=== PATIENT | male | born 1955 | race Caucasian/White ===

== ENCOUNTER → 2018-12-15 12:40 | Outpatient (CLI) | payer MEDICARE, MEDICAID, SELFPAY ==
--- NOTE | 2018-12-15 | DI.RAD.S_ITS ---
PROCEDURE: XR PELVIS 1-2V INDICATIONS: Malignant neoplasm of BRONCHUS OR LUNG/ BACK PAIN TECHNIQUE: 1 view(s) of the pelvis acquired. COMPARISON: [facility], , PELVIS WITH BILATERAL HIPS, 03/17/2010, 13:12. FINDINGS: Bones: No fractures or dislocations. No suspicious bony lesions. Mild degenerative narrowing of the hip joints bilaterally with small periarticular osteophytes. Soft tissues: Visualized bowel gas pattern is normal. No suspicious soft tissue calcifications. IMPRESSION: Early degenerative arthritic change within the hips bilaterally. No definitive metastatic lesions. If clinical concern persists, bone scan is recommended. Dictated by: My Wright M.D. on 12/15/2018 at 15:04 Approved by: My Wright M.D. on 12/15/2018 at 15:05
--- NOTE | 2018-12-15 | DI.RAD.S_ITS ---
PROCEDURE: XR LUMBAR SPINE 2-3V INDICATIONS: BACK PAIN TECHNIQUE: 3 views of the lumbar spine were acquired. COMPARISON: [facility], , -SPINE 2-3 VIEWS, 03/17/2010, 13:16. FINDINGS: Bones: 5 [id number] vertebrae are present. There is trace retrolisthesis of L1 on L2, L2 on L3, L4-L5 and L5 on S1. No acute vertebral body compression fractures. Severe disc and foraminal narrowing is noted at L5-S1, moderate at L4-5, progressed compared to prior exam. Anterior osteophytes most notable at L5-S1. The L5 vertebral body demonstrates mild increase sclerosis. However, this was present on prior exam in 1999 and appears mildly progressed. There is a new focus of sclerosis along the superior endplate of L4. Soft tissues: Overlying bowel gas pattern is normal. No suspicious soft tissue calcifications. IMPRESSION: 1. Significant degenerative changes most prominent at L5-S1 as above. No visualized metastatic disease. 2. Focus of sclerosis at L4, new compared to prior exam. While this could be degenerative change, if clinical concern is present for metastatic disease, bone scan is recommended. Additionally, there is progressive sclerosis at L5. However, it is noted that this was present in 2009 and suspected to be degenerative. Dictated by: My Wright M.D. on 12/15/2018 at 15:05 Approved by: My Wright M.D. on 12/15/2018 at 15:08
--- NOTE | 2018-12-15 | DI.MRI.S_ITS ---
PROCEDURE: MR HEAD/BRAIN WO/W CON INDICATIONS: Metastatic disease TECHNIQUE: Noncontrast axial T1 spin echo, axial T2 fast spin echo, sagittal and axial FLAIR, coronal T2 fast spin echo, axial gradient echo, axial diffusion and ADC through the brain. After the administration of contrast, axial and coronal T1 spin echo with fat saturation through the brain. COMPARISON: [facility], MR, MR BRAIN WITHOUT CONTRAST, 10/21/2018, 12:12. FINDINGS: Image quality: Excellent. CSF spaces: Basal cisterns are patent. No extra-axial fluid collections. Ventricles are normal in size and shape. Brain: There is cerebral volume loss for age. There is periventricular white matter chronic small vessel ischemic change. The brainstem appears normal. Diffusion-weighted images demonstrate no acute ischemic insults. No chronic ischemic insults. Normal intravascular flow voids are present. In the vertex of the right frontal lobe, there is a 14 mm AP by 14 mm transverse T2 hyperintense focus with mild surrounding hyperintense T2/FLAIR signal intensity. It does demonstrate small peripheral areas of enhancement. This area has markedly decreased in size compared to 24 mm AP by 28 mm transverse. In addition, the hyperintense flair signal representing vasogenic edema has also decreased. Calvarial changes are present suggestive of prior resection. Skull and face: Calvarial marrow is normal in signal. Orbits appear normal. Sinuses: Sinuses demonstrate minimal pansinus mucosal thickening. Moderate fluid is present within the mastoid air cells bilaterally, new compared to prior exam. IMPRESSION: 1. Presumed resection cavity in the superior right frontal lobe as above. This corresponds to area of identified mass lesion on prior exam. There's been significant interval decrease in appearance of vasogenic edema. There are small areas of peripheral enhancement. While this could be postsurgical change, recurrent/residual disease cannot be excluded and short interval imaging followup is recommended. 2. No new areas of metastatic disease are identified. 3. Prominent fluid within the mastoid air cells bilaterally. Recommend correlation potential mastoiditis. Dictated by: My Wright M.D. on 12/15/2018 at 14:32 Approved by: My Wright M.D. on 12/15/2018 at 14:59
== END ==
PROVIDERS: Family Provider Family Medicine; PCP Family Medicine; Visit Provider Family Medicine
DX: C34.90 Malignant neoplasm of unspecified part of unspecified bronchus or lung (principal); C79.31 Secondary malignant neoplasm of brain; M16.0 Bilateral primary osteoarthritis of hip; G93.9 Disorder of brain, unspecified; M54.9 Dorsalgia, unspecified; M25.559 Pain in unspecified hip
CPT/HCPCS: 70553; 72100; 72170

== ENCOUNTER → 2018-12-28 14:14 | Outpatient (CLI) | payer MEDICARE, MEDICAID, SELFPAY ==
[2018-12-28 15:33] LABS: Add Manual Diff / Slide Review NO; Basophils Absolute Auto 100 /uL (0-100); Basophils Percent Auto 0.8 % (0-2); Eosinophils Absolute Auto 200 /uL (0-450); Eosinophils Percent Auto 2.3 % (2-4); Hematocrit 37.5 % (41-53); Hemoglobin 12.4 g/dL (13.5-17.5); Lymphocytes Absolute Auto 900 /uL (1100-4500); Lymphocytes Percent Auto 10.2 % (25-40); Mean Corpuscular Hemoglobin 30.9 PG (26-34); Mean Corpuscular Volume 93.8 fL (80-100); Monocytes Absolute Auto 1000 /uL (0-900); Monocytes Percent Auto 10.6 % (3-14); Neutrophils Absolute Auto 6900 /uL (1500-7000); Neutrophils Percent Auto 76.1 % (50-75); Platelet Count 231 X10^3/uL (150-400); Red Cell Distribution Width 15.5 % (11.6-14.8); White Blood Cell Count 9.1 X10^3/uL (4.5-11.0)
[2018-12-28 16:08] LABS: Alanine Aminotransferase 72 IU/L (21-72); Albumin 3.8 g/dL (3.5-5.0); Albumin Globulin Ratio 1.4 (1.0-2.8); Alkaline Phosphatase 391 U/L (38-126); Aspartate Aminotransferase 47 IU/L (17-59); BUN Creatinine Ratio 4.7 (6-22); Bilirubin Total 0.4 mg/dL (0.2-1.3); Blood Urea Nitrogen 20 mg/dL (9-20); Calcium 8.5 mg/dL (8.4-10.2); Carbon Dioxide 31 mmol/L (22-32); Chloride 92 mmol/L (98-107); Estimated Glomerular Filt Rate 13.9 mL/min (>60); Globulin 2.7 g/dL (1.7-4.1); Glucose 152 mg/dL (80-110); HEMOLYSIS < 15 (0-50); Potassium 3.8 mmol/L (3.4-5.1); Sodium 137 mmol/L (137-145); Total Protein 6.5 g/dL (6.3-8.2)
[2018-12-28 16:16] LABS: Free T4, Direct Thyroxine 1.58 ng/dL (0.78-2.19)
[2018-12-28 16:30] LABS: Thyroid Stimulating Hormone 2.76 uIU/mL (0.47-4.68)
== END ==
PROVIDERS: Family Provider Family Medicine; PCP Family Medicine; Visit Provider Family Medicine
DX: E03.9 Hypothyroidism, unspecified (principal); C79.31 Secondary malignant neoplasm of brain; C34.90 Malignant neoplasm of unspecified part of unspecified bronchus or lung
CPT/HCPCS: 36415; 80053; 84439; 84443; 85025

== ENCOUNTER 2019-02-22 13:51 | Day surgery (SDC) | payer MEDICARE, MEDICAID, SELFPAY ==
[2019-02-08 14:36] VITALS: BMI 29.7
[2019-02-22] VITALS (8 sets, daily range): BP systolic 111–128; BP diastolic 64–78; PULSE 66–89; RESP 10–20; TEMP 36.2–36.6; O2SAT 93–100; BMI 29.7
--- NOTE | 2019-02-22 | DI.RAD.S_ITS ---
PROCEDURE: XR CHEST 1V INDICATIONS: port placement TECHNIQUE: One view of the chest was acquired. COMPARISON: [facility], , CHEST 2 VIEW, 10/24/2012, 10:31. FINDINGS: Surgical changes and devices: Right chest port with the tip projecting in the lower SVC. Cervical spine fixation hardware. Lungs and pleura: Mild patchy retrocardiac opacity. Lung volumes are low and there is scattered atelectasis.. No pleural effusions or pneumothorax. Mediastinum: Mediastinal contours appear normal. Heart size is normal. Bones and chest wall: No suspicious bony lesions. Overlying soft tissues appear unremarkable. IMPRESSION: Status post placement right chest port with the tip projecting in the lower SVC. No pneumothorax. Low lung volumes with patchy atelectasis versus aspiration in the lung bases and retrocardiac region. Dictated by: Ian Mitchell M.D. on 02/22/2019 at 18:06 Approved by: Ian Mitchell M.D. on 02/22/2019 at 18:07
[2019-02-22] MEDS: LACTATED RINGERS 1,000 ML 100 ML IV (15:23)
--- NOTE | 2019-02-22 16:30 | PM.HP.1 ---
History of Present Illness Date Patient Seen: 02/22/19 Time Patient Seen: 16:30 Chief complaint: [id number] Narrative: pt seen and examened anemia since last visit Otherwise unchanged Patient History Medical History (Updated 02/17/19 @ 10:51 by Loida Bennett RN) Arthritis (Acute) Back pain (Acute) Chest pain (Acute) GERD (gastroesophageal reflux disease) (Acute) HLD (hyperlipidemia) (Acute) Bipolar 1 disorder (Acute) COPD (chronic obstructive pulmonary disease) (Acute) History of renal dialysis (Acute) Hypotension (Acute) Lung cancer (Acute) Poor balance (Acute) Weakness (Acute) Diabetes (Chronic) HTN (hypertension) (Chronic) Renal failure (Chronic) Surgical History (Updated 02/14/19 @ 10:30 by Nam Pereira MD) AV (arteriovenous fistula) (Acute) H/O umbilical hernia repair (Acute) History of cholecystectomy (Acute) Hx of brain surgery (Acute ~10/2018) Family History (Updated 02/07/19 @ 11:13 by Jeanne Meneses LPN) Father Hypertension Heart disease Diabetes mellitus Mother Cancer Social History (Updated 02/07/19 @ 11:12 by Jeanne Meneses LPN) marital status: household members: spouse and children occupational status: unemployed Smoking Status: Current every day smoker alcohol intake: never Family & Social History Family History (Updated 02/07/19 @ 11:13 by Jeanne Meneses LPN) Father Hypertension Heart disease Diabetes mellitus Mother Cancer Social History: household members spouse,children Tobacco & Substance use: Tobacco type cigarettes Smoking Status Current every day smoker alcohol intake never Substance Use Type does not use Meds Home Medications Medication Instructions Recorded Confirmed Type CALCIUM ACETATE (PHOSLO~) 667 mg PO QDAY #0 05/24/13 02/07/19 History OMEPRAZOLE 20 mg PO BID #0 05/24/13 02/22/19 History VITAMIN D (Vitamin D3) 1,000 unit PO BID #0 05/24/13 02/07/19 History [DIALYVITE] 100 mg PO QDAY #0 05/24/13 02/22/19 History [LEVOTHYROXINE] 225 mcg PO QDAY #0 05/24/13 02/07/19 History aspirin 325 mg PO QDAY #0 05/24/13 02/22/19 History olanzapine [Zyprexa] 5 mg PO QDAY #0 05/24/13 02/22/19 History paroxetine HCl [Paxil] 20 mg PO QDAY #0 05/24/13 02/22/19 History sevelamer carbonate [Renvela] 1,600 mg PO #0 05/24/13 02/07/19 History simvastatin [Zocor] #0 05/24/13 02/07/19 History albuterol sulfate [ProAir HFA] 2 puff INHALATION Q4-6H 12/20/18 02/22/19 History fluticasone furoate-vilanterol 1 inh INHALATION DAILY 12/20/18 02/22/19 History [Breo Ellipta] gabapentin 200 mg PO BID 12/20/18 02/22/19 History hydrocodone-acetaminophen 1 tab PO Q4-6H PRN 12/20/18 02/22/19 History ketoconazole 1 applic TOPICAL BID 12/20/18 02/07/19 History loratadine 10 mg PO DAILY 12/20/18 02/22/19 History ondansetron 4 mg PO Q6-8H PRN 12/20/18 02/07/19 History umeclidinium [Incruse Ellipta] 1 inh INHALATION DAILY 12/20/18 02/22/19 History Allergies Allergy/AdvReac Type Severity Reaction Status Date / Time Penicillins Allergy Severe passed out Verified 02/22/19 15:06 codeine Allergy Intermediate hurt worse Verified 02/22/19 15:06 Exam Vital Signs (past 8 hours): - 02/22/19 15:14 Temperature 97.6 F Pulse Rate 89 Respiratory Rate 18 Blood Pressure 114/77 Pulse Oximetry 99 Oxygen Delivery Method Room Air
[2019-02-22] MEDS: CEFAZOLIN 2 GM/100 ML FROZ.PIGGY IV (16:50)
--- NOTE | 2019-02-22 17:13 | SUR.OPER ---
Supine on padded OR bed, head on pillow, right arm padded and tucked at side, legs uncrossed, safety belt at thigh, tape over blanket over lower legs .
[2019-02-22] MEDS: BUPIVACAINE 0.25% W/ EPI (PF) 10 ML VIAL INJ (17:22)
[2019-02-22] MEDS: HEPARIN 5,000 UNIT, SODIUM CHLORIDE 0.9% 50 ML IV (17:24)
--- NOTE | 2019-02-22 18:00 | P.OP_ITS ---
Operative Date/Time/Diagnoses Date of procedure: 02/22/19 Time of procedure: 17:51 Pre-op diagnosis: metastatic lung cancer Post-op diagnosis: same Procedure & Clinicians Procedure: Totally implantable venous access catheter -right internal jugular vein Same procedure as scheduled: Yes Indications: 63-year-old man with metastatic cancer of the lung getting implanted port for palliative chemotherapy Surgeon: Sheng Enriquez Click Yes if Unassisted: Yes Anesthesia Type: General Operative Notes Findings: Needle into the right IJ by ultrasound guidance on stick PACU x-ray demonstrates tip of catheter adjacent to caval atrial junction - no kinks flushes and withdraws easily Closure Type: primary Specimen(s): none sent Prosthetic devices, grafts, tissues, transplants, or devices: joann cath Applied: catheter Estimated Blood Loss (mL): 10 Blood products transfused: none Procedure in detail: The patient was brought to the operating room and LMA was placed without incident is prepped and draped in usual sterile fashion and time- out was completed. The neck was visualized utilizing a linear probe ultrasound. The right internal jugular vein was readily identified easily compressible medial to the carotid. The patient was placed in Trendelenburg position. Under ultrasound guidance needle was advanced directly into the jugular vein with flash of blood. There is no pulsatile flow through the needle a wire was threaded using Seldinger technique without difficulty. Pocket was then created 1/2 fingerbreadths below the clavicle at the midclavicular line on the right chest. This was enlarged with a finger to accommodate the port with approximately a 1 cm soft tissue overlying. A dilator and sheath was then placed over the wire into the right internal jugular vein. The location of the wire and the sheath was checked fluoroscopically and found to be well positioned down into the superior vena cava. Wire was removed and the catheter was placed through the sheath using fluoroscopic guidance with the tip within the atrium. The sheath was then split and removed holding the catheter in place. The tip was backed out the caval atrial junction under fluo ro, using a tunneler the external tip of the catheter was then brought through the subcutaneous tissue over the clavicle and into the pocket. It was withdrawn until the loop at the neck stab incision was reduced. The tip was read checked with fluoro and was in good position. The catheter was cut to an appropriate length and secured to the reservoir. The reservoir was placed within the subcutaneous pocket and sutured in place using 2 0 Prolene sutures x2. A Chen needle was placed into the reservoir injuring that the catheter aspirated with ease and flushed with out difficulty. At the end of the procedure a total of 4 mL of heparinized solution 100units/ml was flushed through the catheter. Skin was then closed using deep dermal to 2-0 Vicryl layer, and running monofilament suture in a subcuticular fashion. Skin glue was applied the patient was brought to PACU without incident. PACU x-ray demonstrates tip adjacent to atrial caval junction, no kinks Complications: none Condition: stable Disposition: PACU Plan for aftercare:
== END 2019-02-22 18:45 ==
LOC: OR 13:53
PROVIDERS: Family Provider Family Medicine; PCP Family Medicine; Visit Provider Surgery
PROC: (CPT 36561; principal; 2019-02-22 15:00)
DX: C34.90 Malignant neoplasm of unspecified part of unspecified bronchus or lung (principal); D64.9 Anemia, unspecified; J44.9 Chronic obstructive pulmonary disease, unspecified; I10 Essential (primary) hypertension; E11.9 Type 2 diabetes mellitus without complications; N19 Unspecified kidney failure; F17.210 Nicotine dependence, cigarettes, uncomplicated
CPT/HCPCS: 36561; 71045; 76000; C1788; J0690; J1644; J2704; J3010

== ENCOUNTER → 2019-03-28 10:38 | Outpatient (CLI) | payer MEDICARE, MEDICAID, SELFPAY ==
--- NOTE | 2019-03-28 10:41 | DI.CT.S_ITS ---
PROCEDURE: CT CHEST ABD PEL W CON INDICATIONS: f/u lung cancer TECHNIQUE: After the administration of oral and intravenous contrast, 5 mm thick sections acquired from the lung apices to the symphysis. 5 mm coronal and sagittal reformats were performed, with additional 7 mm coronal MIP reformats through the lungs. For radiation dose reduction, the following was used: automated exposure control, adjustment of mA and/or kV according to patient size. COMPARISON: [facility] chest abdomen pelvis CT 10/21/18. FINDINGS: Image quality: Excellent. CHEST: Lungs and pleura: Within the right upper lobe posterolaterally, there is an irregular nodule seen that measures 2.7 x 2.4 cm. This is clearly decreased in size compared to the prior examination. Superior to this primary lesion, there is a focus of poorly defined opacity, as on series 7 image 12 that measures 1.5 x 1.2 cm, which is slightly smaller than on the prior examination, when measured in a similar fashion. Within the right perihilar region, there is irregular nodule that measures 17 x 14 mm. This is not significantly changed compared to the prior CT. There is a stable ovoid nodule within the right middle lobe that measures 8 x 4 mm. Mild emphysematous changes are seen. No pleural effusions or pneumothorax. Central and peripheral airways appear patent and normal in caliber. Mediastinum: Heart size is normal. Coronary artery calcifications are seen. No pericardial effusion. No mediastinal or hilar adenopathy by size criteria. Thoracic aorta and central pulmonary arteries are normal in size. Esophagus is normal in caliber. There is a small hiatal hernia. Chest wall: No axillary or supraclavicular adenopathy by size criteria. Thyroid gland demonstrates no significant CT abnormality. There is a right-sided chest port. ABDOMEN: Solid organs: Liver is normal in size and enhancement. Gallbladder has been removed. Biliary system is non dilated. Pancreas enhances normally. Spleen is normal in size and enhancement. No adrenal nodules. The kidneys are atrophic. Bilateral nonenhancing renal cysts are seen. No hydronephrosis is seen. Vascular calcification can be seen of the kidneys. Peritoneum and bowel: Bowel loops demonstrate normal wall thickness and caliber. No free fluid or air. Incidental note is made of a normal-appearing appendix. Nodes and vessels: No retroperitoneal or mesenteric adenopathy by size criteria. Aorta and inferior vena cava are normal in size. Atherosclerotic calcification is noted. Miscellaneous: No ventral hernias. PELVIS: Genitourinary: The urinary bladder is collapsed at the time of this study. Miscellaneous: No enlarged inguinal lymph nodes are seen. Bilateral fat containing inguinal hernias are seen, left larger than right. Bones: No suspicious bony lesions. No vertebral body compression fractures. Degenerative changes are seen throughout, which are most prominent at the L4-L5 and L5-S1 levels. IMPRESSION: The patient's primary mass within the right upper lobe has decreased in size compared to the prior examination. An additional right upper lobe nodule has also decreased in size compared to the prior. The right perihilar pulmonary focus in the right middle lobe nodule has not significantly changed in size compared to the prior examination. Mild emphysematous changes are seen. Incidental note is made of: Small hiatal hernia Cholecystectomy Atrophic kidneys Renal cysts Bilateral fat containing inguinal hernias Prostatic calcification, including coronary artery calcification. Dictated by: Yonathan Pandey M.D. on 03/28/2019 at 12:32 Approved by: Yonathan Pandey M.D. on 03/28/2019 at 12:43
--- NOTE | 2019-03-28 10:41 | DI.MRI.S_ITS ---
PROCEDURE: MR BRAIN (IAC) WWO CON INDICATIONS: f/u lung cancer TECHNIQUE: Noncontrast sagittal T1 spin echo, axial FLAIR, axial gradient echo, axial diffusion and ADC through the brain. Axial thin-slice 3D CISS, coronal TruFISP, axial T1 spin echo with fat saturation through the internal auditory canals. After the administration of contrast, thin slice axial and coronal T1 spin echo with fat saturation through the internal auditory canals, and axial T1 spin echo with fat saturation through the brain. COMPARISON: [facility], MR, MR BRAIN WITH/WITHOUT CONTRAST, 01/10/2019, 19:07. [facility], MR, MR BRAIN WITHOUT CONTRAST, 01/06/2019, 17:15. [facility], MR, MR HEAD/BRAIN WO/W CON, 12/15/2018, 12:55. [facility], MR, MR BRAIN WITH/WITHOUT CONTRAST, 10/25/2018, 23:18. FINDINGS: Image quality: Excellent. Cerebellopontine angles: No cerebellopontine angle masses. Inner ear structures appear normally formed. No suspicious enhancement in the internal auditory canal or along the course of the 7th cranial nerve. CSF spaces: Ventricles are normal in size and shape. No extra-axial fluid collections. Basal cisterns are patent. Brain: Grossly unchanged appearance of postoperative sequela from right frontal lobe resection. An area of the operative bed where there was previously discussed mildly prominent enhancement seen at the superior margin, this appears less conspicuous on the current examination. No new suspicious area of enhancement is identified. There are nearby chronic blood products as before.Chairez-white matter interface is intact. No abnormal intracranial enhancement. Diffusion weighted images demonstrate no acute ischemic insults. Brainstem appears normal. Normal intravascular flow voids are present. Skull and face: Postsurgical changes related to right frontal craniotomy Orbits appear normal. Sinuses: Minimal left frontal sinus disease is unchanged IMPRESSION: Interval decrease in the previously described foci of enhancement at the right frontal operative bed margin. No new suspicious focal enhancement or mass identified. Unremarkable appearance of the cerebellopontine angle and internal auditory canals bilaterally. Dictated by: Ian Mitchell M.D. on 03/28/2019 at 13:58 Approved by: Ian Mitchell M.D. on 03/28/2019 at 14:11
[2019-03-28 11:36] LABS: Add Manual Diff / Slide Review NO; Basophils Absolute Auto 100 /uL (0-100); Basophils Percent Auto 1.6 % (0-2); Eosinophils Absolute Auto 200 /uL (0-450); Eosinophils Percent Auto 3.6 % (2-4); Hemoglobin 9.8 g/dL (13.5-17.5); Lymphocytes Absolute Auto 900 /uL (1100-4500); Lymphocytes Percent Auto 16.9 % (25-40); Mean Corpuscular HGB Conc 32.8 % (30-36); Mean Corpuscular Hemoglobin 30.4 PG (26-34); Mean Corpuscular Volume 92.8 fL (80-100); Monocytes Absolute Auto 500 /uL (0-900); Monocytes Percent Auto 9.7 % (3-14); Neutrophils Absolute Auto 3600 /uL (1500-7000); Neutrophils Percent Auto 68.2 % (50-75); Platelet Count 133 X10^3/uL (150-400); Red Blood Cell Count 3.23 X10^6/uL (4.5-5.9); Red Cell Distribution Width 17.6 % (11.6-14.8); White Blood Cell Count 5.3 X10^3/uL (4.5-11.0)
[2019-03-28 11:58] LABS: Albumin Globulin Ratio 1.5 (1.0-2.8); Alkaline Phosphatase 118 U/L (38-126); Aspartate Aminotransferase 14 IU/L (17-59); BUN Creatinine Ratio 5.7 (6-22); Bilirubin Total 0.5 mg/dL (0.2-1.3); Blood Urea Nitrogen 39 mg/dL (9-20); Calcium 9.5 mg/dL (8.4-10.2); Carbon Dioxide 31 mmol/L (22-32); Chloride 95 mmol/L (98-107); Estimated Glomerular Filt Rate 8.1 mL/min (>60); Globulin 2.7 g/dL (1.7-4.1); Glucose 222 mg/dL (80-110); HEMOLYSIS < 15 (0-50); Potassium 3.9 mmol/L (3.4-5.1); Sodium 139 mmol/L (137-145); Total Protein 6.7 g/dL (6.3-8.2)
[2019-03-28 12:13] LABS: Alanine Aminotransferase 6 IU/L (21-72)
[2019-03-28 12:28] LABS: Hemoglobin A1C% w Est Avg Glu 9.3 % (4.0-6.0)
[2019-03-28 12:36] LABS: Free T4, Direct Thyroxine 1.69 ng/dL (0.78-2.19)
[2019-03-28 12:51] LABS: Thyroid Stimulating Hormone 3.42 uIU/mL (0.47-4.68)
== END ==
PROVIDERS: Family Provider Family Medicine; PCP Family Medicine
DX: C34.90 Malignant neoplasm of unspecified part of unspecified bronchus or lung (principal); C79.31 Secondary malignant neoplasm of brain; E11.9 Type 2 diabetes mellitus without complications
CPT/HCPCS: 36415; 70553; 71260; 74177; 80053; 83036; 84439; 84443; 85025; Q9967

== ENCOUNTER → 2019-06-22 12:00 | Outpatient (CLI) | payer MEDICARE, OTHER, MEDICAID, SELFPAY ==
--- NOTE | 2019-06-22 12:04 | DI.MRI.S_ITS ---
PROCEDURE: MR HEAD/BRAIN WO CON INDICATIONS: f/u brain mets, lung cancer TECHNIQUE: Non-contrast axial T1 spin echo, axial T2 fast spin echo, sagittal and axial FLAIR, coronal T2 fast spin echo, axial gradient echo, axial diffusion and ADC through the brain. COMPARISON: [facility], MR, MR HEAD/BRAIN WO/W CON, 12/15/2018, 12:55. [facility], MR, MR BRAIN (IAC) WWO CON, 03/28/2019, 12:40. FINDINGS: Image quality: Limited by lack of IV contrast. No IV contrast was given, secondary to patient being on dialysis. CSF spaces: Ventricles appear symmetric in size and shape. Basal cisterns are patent. No extra-axial fluid collections. Brain: There is a resection cavity seen involving the superior aspect of the right frontal lobe, with volume loss and surrounding encephalomalacia. Mild hemosiderin deposition can be seen along the margins of the resection cavity. No intracranial mass effects. There is cerebral volume loss for age. There are periventricular and deep white matter chronic small vessel ischemic changes. Brainstem appears normal. Diffusion-weighted images show no acute ischemic insults. No chronic ischemic insults. Normal intravascular flow voids are present. Skull and face: Craniotomy changes are seen superiorly and on the right. Calvarial bone marrow is normal in signal. Orbits are normal. Sinuses: Sinuses and mastoids are clear. IMPRESSION: There is a resection cavity seen along the superior aspect of the right frontal lobe, which is stable compared to prior examinations. To the limits of this study that is performed without IV contrast, no recurrent masses are seen. Note is made of age-appropriate brain parenchymal volume loss and chronic small vessel ischemic changes. No findings of acute or subacute infarction can be seen. Dictated by: Yonathan Pandey M.D. on 06/22/2019 at 12:28 Approved by: Yonathan Pandey M.D. on 06/22/2019 at 12:33
--- NOTE | 2019-06-22 12:22 | DI.CT.S_ITS ---
PROCEDURE: CT CHEST WO CON INDICATIONS: lung cancer surveillance TECHNIQUE: Noncontrast 5 mm thick sections acquired from the pulmonary apices to the posterior costophrenic angles. 1 mm lung window, 5 mm thick coronal and sagittal and 7 mm axial MIP reformats were then acquired. For radiation dose reduction, the following was used: automated exposure control, adjustment of mA and/or kV according to patient size. COMPARISON: [facility], [place], [place] CT FUSION SKULL 2 THIGH, 12/28/2018, 16:43. [facility], CT, CT CHEST ABDOMEN PELVIS WITH CONTRAST, 10/21/2018, 10:20. [facility], CT, CT CHEST ABD PEL W CON, 03/28/2019, 12:27. FINDINGS: Image quality: Excellent. Lungs and pleura: As previously identified, there are multiple areas of nodular, masslike in ground glass opacities identified within the lungs bilaterally. The site of patient's primary neoplasm in the posterior lateral right upper lobe has mildly decreased in size measuring 20 mm AP by 20 mm transverse compared to 27 mm x 24 mm. The right apical partially ground glass nodular density has mildly decreased in size measuring 9 mm AP by 9 mm transverse compared to 15 mm x 12 mm. The mass along the medial aspect of the right middle lobe along the right major fissure is minimally more prominent measuring approximately 17 mm AP by 16 mm transverse compared to 15 mm AP by 13 mm transverse. There is also appearance of a new groundglass nodular opacity in the left lower lobe on series 3 image 199 measuring 5 mm. Remaining areas of nodularity within the lungs are stable. There are no effusions or consolidations. No pneumothorax. Emphysematous changes are present. Mediastinum: Heart size is normal. Trace, unchanged pericardial effusion. No mediastinal adenopathy by size criteria. Thoracic aorta and central pulmonary arteries are normal in size. Esophagus is normal in caliber. Mild hiatal hernia. Right Port-A-Cath is present. Bones and chest wall: No suspicious bony lesions. No vertebral body compression fractures. No axillary or supraclavicular adenopathy by size criteria. Thyroid gland is unremarkable Abdomen: Visualized upper abdominal solid organs and bowel loops appear normal in the absence of contrast. IMPRESSION: 1. Multiple bilateral pulmonary nodules and groundglass opacities as above. Several have demonstrated interval decrease in size, a right middle lobe mass has mildly increased in size, as well as interval appearance of a new left lower lobe nodule. Overall appearance is consistent with a mixed response. However, appearance of new nodule is concerning for disease progression. Dictated by: My Wright M.D. on 06/22/2019 at 14:54 Approved by: My Wright M.D. on 06/22/2019 at 15:06
== END ==
PROVIDERS: Family Provider Family Medicine; PCP Family Medicine
DX: C34.90 Malignant neoplasm of unspecified part of unspecified bronchus or lung (principal); C79.31 Secondary malignant neoplasm of brain
CPT/HCPCS: 70551; 71250

== ENCOUNTER 2019-08-21 13:04 | Emergency (ER) | payer MEDICARE, OTHER, MEDICAID, SELFPAY ==
[2019-08-21 13:10] VITALS: BP 130/82; PULSE 90; RESP 14; TEMP 36.6; O2SAT 98
--- NOTE | 2019-08-21 17:46 | ED_ITS ---
HPI - SOB/Dyspnea <Iqra YaSILKE - Last Filed: 08/21/19 21:18> General Chief Complaint: Shortness of Breath/Dyspnea Stated Complaint: breathing trouble/cancer Time Seen by Provider: 08/21/19 17:26 Source: patient and family Mode of arrival: Wheelchair History of Present Illness HPI Narrative: 64-year-old male with a history of stage IV lung cancer being treated with Keytruda, COPD, current smoker, presents emergency department today complaining of episodes of shortness of breath since Wednesday. He states these episodes occur mostly at night and last about 4-10minutes. He states it feels like he has to take a deep breath and push it out when this happens, use inhaler but does not feel like this has helped. Family reports he has had a cold over the past 2 weeks and feels like this may have contributed. Patient states he has used his albuterol inhaler but does not feel like it is helping. He denies fevers, cough, nausea, vomiting, diarrhea, dizziness, chest pain, or other concerns. He reports he still smokes 6 cigarettes a day. Related Data Home Medications Medication Instructions Recorded Confirmed CALCIUM ACETATE (PHOSLO~) 667 mg PO QDAY #0 05/24/13 08/15/19 OMEPRAZOLE 20 mg PO BID #0 05/24/13 08/15/19 VITAMIN D (Vitamin D3) 3,000 unit PO DAILY #0 05/24/13 08/15/19 [DIALYVITE] 100 mg PO QDAY #0 05/24/13 08/15/19 [LEVOTHYROXINE] 225 mcg PO QDAY #0 05/24/13 08/15/19 aspirin 325 mg PO QDAY #0 05/24/13 08/15/19 olanzapine [Zyprexa] 5 mg PO QDAY #0 05/24/13 08/15/19 paroxetine HCl [Paxil] 20 mg PO QDAY #0 05/24/13 08/15/19 sevelamer carbonate [Renvela] 1,600 mg PO DAILY #0 05/24/13 08/15/19 simvastatin [Zocor] 20 mg DAILY #0 05/24/13 08/15/19 Breo Ellipta 1 inh INHALATION DAILY 12/20/18 08/15/19 Incruse Ellipta 1 inh INHALATION DAILY 12/20/18 08/15/19 albuterol sulfate [ProAir HFA] 2 puff INHALATION Q4-6H 12/20/18 08/15/19 hydrocodone-acetaminophen 1 tab PO Q4-6H PRN 12/20/18 08/15/19 ketoconazole 1 applic TOPICAL BID 12/20/18 08/15/19 loratadine 10 mg PO DAILY 12/20/18 08/15/19 ondansetron 4 mg PO Q6-8H PRN 12/20/18 08/15/19 pioglitazone 45 mg PO DAILY 03/14/19 08/15/19 Previous Rx's Medication Instructions Recorded acetaminophen 500 mg PO Q4H PRN #14 cap 02/22/19 albuterol sulfate 1.25 mg INHALATION Q4-6H PRN #75 ml 08/21/19 doxycycline hyclate 100 mg PO BID 7 Days #14 cap 08/21/19 Allergies Allergy/AdvReac Type Severity Reaction Status Date / Time Penicillins Allergy Severe passed out Verified 02/22/19 15:06 codeine Allergy Intermediate hurt worse Verified 02/22/19 15:06 Review of Systems <SILKE Payne - Last Filed: 08/21/19 21:18> Review of Systems Narrative: REVIEW OF SYSTEMS: GENERAL: Denies fevers. HENT: No head trauma or hearing loss. EYES: No loss of vision, double vision, eye pain, irritation or discharge. CARDIOVASCULAR: No chest pain or syncope. RESPIRATORY: Complains of SOB episodes, see HPI. GASTROINTESTINAL: No nausea, vomiting, diarrhea, or constipation. MUSCULOSKELETAL: No weakness or injury. INTEGUMENTARY: No rash, lesions, or pruritus. NEURO: No memory loss, or confusion. Patient History <SILKE Payne - Last Filed: 08/21/19 21:18> Medical History Arthritis (Acute) Back pain (Acute) Bipolar 1 disorder (Acute) Chest pain (Acute) COPD (chronic obstructive pulmonary disease) (Acute) Diabetes (Chronic) GERD (gastroesophageal reflux disease) (Acute) History of renal dialysis (Acute) HLD (hyperlipidemia) (Acute) HTN (hypertension) (Chronic) Hypotension (Acute) Lung cancer (Acute) Poor balance (Acute) Renal failure (Chronic) Weakness (Acute) Surgical History AV (arteriovenous fistula) (Acute) H/O umbilical hernia repair (Acute) History of cholecystectomy (Acute) Hx of brain surgery (Acute ~10/2018) Family History Father Hypertension Heart disease Diabetes mellitus Mother Cancer Social History marital status: household members: spouse and children occupational status: unemployed Smoking Status: Current every day smoker alcohol intake: never Substance Use Type: does not use Exam <SILKE Payne - Last Filed: 08/21/19 21:18> Narrative Exam Narrative: PHYSICAL EXAMINATION: GENERAL: Well groomed, alert, and cooperative. Answers questions promptly and appropriately. Vital signs noted. HENT: Normocephalic, atraumatic. Ear canals patent. TMs intact without mucus or erythema. Oropharynx without erythema. Tonsils are not present. EYES: Conjunctiva pink, sclera white, no periorbital swelling. No discharge. CHEST: Normal to inspection and without deformities. CARDIOVASCULAR: S1 and S2 sounds normal. Regular rate and rhythm, no murmurs, clicks, or bruits. RESPIRATORY: Normal respiratory rate, trachea midline, airway patent. No stridor, nasal flaring or accessory muscle use. Able to speak in full sentences. Lungs with decreased lung sounds in bases, diffuse scattered wheezes noted throughout upper lobes, no crackles heard at this time. MUSCULOSKELETAL: Normal gait and coordination. Equal tone and mass bilaterally. EXTREMITIES: Moves all extremities. SKIN: Warm, dry, soft, appropriate color for ethnicity. No lesions, rashes, or wounds. NEURO: Alert and Oriented X 3. Good coordination. No ataxia or cognitive issues. PSYCH: Appropriate affect and mood. Initial Vital Signs Initial Vital Signs: Vital Signs Temperature 97.8 F 08/21/19 13:10 Pulse Rate 90 08/21/19 13:10 Respiratory Rate 14 08/21/19 13:10 Blood Pressure 130/82 08/21/19 13:10 Pulse Oximetry 98 08/21/19 13:10 <Lefty Arora MD - Last Filed: 08/21/19 23:46> Initial Vital Signs Initial Vital Signs: Vital Signs Temperature 97.8 F 08/21/19 13:10 Pulse Rate 90 08/21/19 13:10 Respiratory Rate 14 08/21/19 13:10 Blood Pressure 130/82 08/21/19 13:10 Pulse Oximetry 98 08/21/19 13:10 Scores <SILKE Payne - Last Filed: 08/21/19 21:18> HEART Score Heart Score history: Slightly Suspicious Heart Score EKG: Normal Heart Score Age: > or = 65 years old Heart Score risk factors: 1-2 risk factors Heart Score troponin: < or = to normal limit Heart Score Total: 3 PERC Score Age greater than or equal to 50 years: Yes Heart rate greater than or equal to 100 bpm: No Room Air O2 Sat less than 95%: No Unilateral leg swelling: No Recent trauma or surgery: No Hemoptysis: No Prior PE or DVT: No Hormone Use: No Total PERC Score: 1 Wells' Criteria for PE Clinical signs and symptoms of DVT: No PE is #1 Dx or equally likely: No Heart rate > 100: No Immobilization at least 3 days or surg in previous 4 weeks: No History of PE or DVT: No Hemoptysis: No Malignancy w/Treatment within 6 months or palliative: Yes Wells' PE Score total: 1 Course <SILKE Payne - Last Filed: 08/21/19 21:18> Course Course Narrative: Patient was given a duoneb during his emergency department stay. Patient states he fells slightly better after DuoNeb administration here, he states he wants to go home. Orders Ordered: ED Orders 08/21/19 17:45 XR chest 2V Stat 08/21/19 19:10 EKG-12 Lead Stat 08/21/19 19:26 B Type Natriuretic Peptide Stat Complete Blood Count AUTO DIFF Stat Comprehensive Metabolic Panel Stat Troponin & CK Cardiac Panel Stat Discontinued Medications Albuterol/Ipratropium (Duoneb) 3 ml INH NOW ONE Stop: 08/21/19 17:46 Last Admin: 08/21/19 19:19 Dose: 3 ml Documented by: ELIANE Consultations Consultation #1: Patient staffed with Dr. Arora. Vital Signs Vital signs: Vital Signs - 8 hr 08/21/19 19:20 08/21/19 20:25 Pulse Rate 103 H Respiratory Rate 24 Blood Pressure 106/66 Pulse Oximetry 95 94 <Lefty Arora MD - Last Filed: 08/21/19 23:46> Orders Ordered: ED Orders 08/21/19 17:45 XR chest 2V Stat 08/21/19 19:10 EKG-12 Lead Stat 08/21/19 19:26 B Type Natriuretic Peptide Stat Complete Blood Count AUTO DIFF Stat Comprehensive Metabolic Panel Stat Troponin & CK Cardiac Panel Stat Discontinued Medications Albuterol/Ipratropium (Duoneb) 3 ml INH NOW ONE Stop: 08/21/19 17:46 Last Admin: 08/21/19 19:19 Dose: 3 ml Documented by: ELIANE Vital Signs Vital signs: Vital Signs - 8 hr 08/21/19 19:20 08/21/19 20:25 Pulse Rate 103 H Respiratory Rate 24 Blood Pressure 106/66 Pulse Oximetry 95 94 MDM - SOB/Dyspnea <SILKE Payne - Last Filed: 08/21/19 21:18> Medical Records Attestation: I reviewed the patient's medical records. Lab Data Attestation: I reviewed the patient's lab results. Result diagrams: 08/21/19 19:26 08/21/19 19:26 Labs: Lab Results 08/21/19 08/21/19 Range/Units 19:26 19:26 WBC 5.8 (4.5-11.0) X10^3/uL RBC 2.65 L (4.5-5.9) X10^6/uL Hgb 8.8 L (13.5-17.5) g/dL Hct 26.0 L (41-53) % MCV 98.3 (80-100) fL MCH 33.3 (26-34) PG MCHC 33.8 (30-36) % RDW 14.9 H (11.6-14.8) % Plt Count 158 (150-400) X10^3/uL Neut % (Auto) 73.9 (50-75) % Lymph % (Auto) 14.4 L (25-40) % Antelope % (Auto) 8.6 (3-14) % Eos % (Auto) 2.2 (2-4) % Baso % (Auto) 0.9 (0-2) % Neut # (Auto) 4300 (2875-1819) /uL Lymph # (Auto) 800 L (8098-8166) /uL Antelope # (Auto) 500 (0-900) /uL Eos # (Auto) 100 (0-450) /uL Baso # (Auto) 100 (0-100) /uL Sodium 138 (137-145) mmol/L Potassium 4.4 (3.4-5.1) mmol/L Chloride 95 L (98-107) mmol/L Carbon Dioxide 34 H (22-32) mmol/L BUN 11 (9-20) mg/dL Creatinine 3.50 H (0.66-1.25) mg/dL Estimated GFR 17.6 L (>60) mL/min BUN/Creatinine Ratio 3.1 L (6-22) Glucose 112 H (80-110) mg/dL Calcium 9.3 (8.4-10.2) mg/dL Total Bilirubin 0.3 (0.2-1.3) mg/dL AST 27 (17-59) IU/L ALT 16 (<50) IU/L Alkaline Phosphatase 141 H (38-126) U/L Total Creatine Kinase 151 (55-170) U/L CK-MB (CK-2) 1.97 (<2.37) ng/mL CK-MB (CK-2) Rel Index 1.3 L (1.5-5.0) % Troponin I 0.030 (0.01-0.034) ng/mL B-Natriuretic Peptide 408 H (<100) Total Protein 6.9 (6.3-8.2) g/dL Albumin 4.2 (3.5-5.0) g/dL Globulin 2.7 (1.7-4.1) g/dL Albumin/Globulin Ratio 1.6 (1.0-2.8) Imaging Data Chest x-ray: Radiologist's impression: [facility] [address] [place] [id number] XRay Report Signed Patient: Yonathan Reed LMR#: [id number] : 3Acct:[id number] Age/Sex: 64 / MDate of Service: 08/21/19 Loc: ED Accession Number: [id number] Procedure: XR chest 2V Ordering Provider: Iqra Ya PROCEDURE: XR CHEST 2V INDICATIONS: SOB, h/o lung CA TECHNIQUE: 2 views of the chest were acquired. COMPARISON: [facility], CR, XR CHEST 1V, 02/22/2019, 17:41. FINDINGS: Surgical changes and devices: Right IJ Mediport. Anterior cervical fusion hardware. Lungs and pleura: The central vasculature is mildly prominent irregular pulmonary opacity seen in the right axillary region, right perihilar region. Atelectatic changes present in the right infrahilar region. Small left pleural effusion. Mediastinum: Mediastinal contours are normal. Heart size is normal. Bones and chest wall: No suspicious bony abnormalities. Soft tissues appear unremarkable. IMPRESSION: 1. Slight central vascular and interstitial prominence raises the possibility of congestion/acute edema. Correlate with BNP. 2. Right upper and midlung masses consistent with history of lung cancer. Dictated by: Romy Phipps M.D. on 08/21/2019 at 18:37 Approved by: Romy Phipps M.D. on 08/21/2019 at 18:40 ECG Data Interpretation: Sinus rhythm, rate 93, WV interval 167, QTC 434, no ST depre ssion or ST elevation. RBBB noted in V1-V6. EKG was also viewed by Dr. Arora as per protocol. MDM Narrative Medical decision making narrative: This is a 64-year-old male who has a history of stage IV lung cancer and COPD. His chest x-ray shows interstitial prominence. Differential includes pneumonia versus pulmonary edema. I have a high suspicion for pneumonia due to history of lung cancer, smoking, and history of URI the past 2 weeks with increasing bronchospasms. Less likely pulmonary edema as patient does not have a history of CHF and BNP is 400s, no crackles her neuro examination. Patient was given was nebulizer treatments per request inside on doxycycline. He was encouraged to follow up with his primary care provider in the next week for re-evaluation. Patient was encouraged to follow up with his oncologist in the next week as well. Strict ED return precautions given for new or worsening symptoms. <Lefty Arora MD - Last Filed: 08/21/19 23:46> Lab Data Labs: Lab Results 08/21/19 08/21/19 Range/Units 19:26 19:26 WBC 5.8 (4.5-11.0) X10^3/uL RBC 2.65 L (4.5-5.9) X10^6/uL Hgb 8.8 L (13.5-17.5) g/dL Hct 26.0 L (41-53) % MCV 98.3 (80-100) fL MCH 33.3 (26-34) PG MCHC 33.8 (30-36) % RDW 14.9 H (11.6-14.8) % Plt Count 158 (150-400) X10^3/uL Neut % (Auto) 73.9 (50-75) % Lymph % (Auto) 14.4 L (25-40) % Antelope % (Auto) 8.6 (3-14) % Eos % (Auto) 2.2 (2-4) % Baso % (Auto) 0.9 (0-2) % Neut # (Auto) 4300 (6428-1473) /uL Lymph # (Auto) 800 L (7412-1038) /uL Antelope # (Auto) 500 (0-900) /uL Eos # (Auto) 100 (0-450) /uL Baso # (Auto) 100 (0-100) /uL Sodium 138 (137-145) mmol/L Potassium 4.4 (3.4-5.1) mmol/L Chloride 95 L (98-107) mmol/L Carbon Dioxide 34 H (22-32) mmol/L BUN 11 (9-20) mg/dL Creatinine 3.50 H (0.66-1.25) mg/dL Estimated GFR 17.6 L (>60) mL/min BUN/Creatinine Ratio 3.1 L (6-22) Glucose 112 H (80-110) mg/dL Calcium 9.3 (8.4-10.2) mg/dL Total Bilirubin 0.3 (0.2-1.3) mg/dL AST 27 (17-59) IU/L ALT 16 (<50) IU/L Alkaline Phosphatase 141 H (38-126) U/L Total Creatine Kinase 151 (55-170) U/L CK-MB (CK-2) 1.97 (<2.37) ng/mL CK-MB (CK-2) Rel Index 1.3 L (1.5-5.0) % Troponin I 0.030 (0.01-0.034) ng/mL B-Natriuretic Peptide 408 H (<100) Total Protein 6.9 (6.3-8.2) g/dL Albumin 4.2 (3.5-5.0) g/dL Globulin 2.7 (1.7-4.1) g/dL Albumin/Globulin Ratio 1.6 (1.0-2.8) Discharge Plan Departure Patient Disposition: Home Clinical Impression: Atypical pneumonia COPD (chronic obstructive pulmonary disease) Qualifiers: COPD type: unspecified COPD Qualified Code(s): J44.9 - Chronic obstructive pulmonary disease, unspecified Discharge Date/Time: 08/21/19 20:28 Instructions: Atypical Pneumonia, DI for Chronic Obstructive Pulmonary Disease Activity Restrictions/Additional Instructions: Thank you for entrusting me with your care today. As discussed, your chest x-ray shows he may have a pneumonia. I prescribed antibiotics, please take these as directed. Have also prescribed you nebulizer treatment, you may use these every 4-6 hours as needed for shortness of breath. Follow up with your primary care provider in the next few weeks for re-evaluation. Return emergency department for new or worsening symptoms such as chest pain, high fevers, uncontrollable vomiting, or etc. Prescriptions: New doxycycline hyclate 100 mg capsule 100 mg PO BID 7 Days Qty: 14 RF: 0 albuterol sulfate 1.25 mg/3 mL solution for nebulization 1.25 mg INHALATION Q4-6H PRN (Reason: bronchospasm) Qty: 75 RF: 0 No Action aspirin 325 MG tablet 325 mg PO QDAY Qty: 0 RF: 0 olanzapine [Zyprexa] 5 MG tablet 5 mg PO QDAY Qty: 0 RF: 0 paroxetine HCl [Paxil] 20 MG tablet 20 mg PO QDAY Qty: 0 RF: 0 simvastatin [Zocor] 20 MG tablet 20 mg DAILY Qty: 0 RF: 0 sevelamer carbonate [Renvela] 800 MG tablet 1,600 mg PO DAILY Qty: 0 RF: 0 CALCIUM ACETATE (PHOSLO~) 667 mg PO QDAY Qty: 0 RF: 0 OMEPRAZOLE 20 mg PO BID Qty: 0 RF: 0 VITAMIN D (Vitamin D3) 3,000 unit PO DAILY Qty: 0 RF: 0 [DIALYVITE] 100 mg PO QDAY Qty: 0 RF: 0 [LEVOTHYROXINE] 225 mcg PO QDAY Qty: 0 RF: 0 acetaminophen 500 mg capsule 500 mg PO Q4H PRN (Reason: pain) Qty: 14 RF: 0 hydrocodone-acetaminophen 5-325 mg Tablet 1 tab PO Q4-6H PRN (Reason: Pain (Scale Score 1-3)) RF: 0 ketoconazole 2 % Cream 1 applic TOPICAL BID RF: 0 Incruse Ellipta 62.5 mcg/actuation Blister With Device 1 inh INHALATION DAILY RF: 0 Breo Ellipta 200-25 mcg/dose Blister With Device 1 inh INHALATION DAILY RF: 0 albuterol sulfate [ProAir HFA] 90 mcg/actuation Hfa Aerosol Inhaler 2 puff INHALATION Q4-6H RF: 0 ondansetron 4 mg Tablet,Disintegrating 4 mg PO Q6-8H PRN (Reason: Nausea) RF: 0 loratadine 10 mg Capsule 10 mg PO DAILY RF: 0 pioglitazone 30 mg Tablet 45 mg PO DAILY RF: 0 Referrals: Nisha Young MD [Primary Care Provider] -
[2019-08-21] MEDS: ALBUTEROL/IPRATROPIUM 3 ML AMPUL INH (19:19)
[2019-08-21 19:20] VITALS: O2SAT 95
[2019-08-21 19:32] LABS: Add Manual Diff / Slide Review NO; Basophils Absolute Auto 100 /uL (0-100); Basophils Percent Auto 0.9 % (0-2); Eosinophils Absolute Auto 100 /uL (0-450); Eosinophils Percent Auto 2.2 % (2-4); Hemoglobin 8.8 g/dL (13.5-17.5); Lymphocytes Absolute Auto 800 /uL (1100-4500); Lymphocytes Percent Auto 14.4 % (25-40); Mean Corpuscular HGB Conc 33.8 % (30-36); Mean Corpuscular Hemoglobin 33.3 PG (26-34); Mean Corpuscular Volume 98.3 fL (80-100); Monocytes Absolute Auto 500 /uL (0-900); Monocytes Percent Auto 8.6 % (3-14); Neutrophils Absolute Auto 4300 /uL (1500-7000); Neutrophils Percent Auto 73.9 % (50-75); Platelet Count 158 X10^3/uL (150-400); Red Blood Cell Count 2.65 X10^6/uL (4.5-5.9); Red Cell Distribution Width 14.9 % (11.6-14.8); White Blood Cell Count 5.8 X10^3/uL (4.5-11.0)
[2019-08-21 19:47] LABS: Alanine Aminotransferase 16 IU/L (<50); Albumin 4.2 g/dL (3.5-5.0); Albumin Globulin Ratio 1.6 (1.0-2.8); Alkaline Phosphatase 141 U/L (38-126); Aspartate Aminotransferase 27 IU/L (17-59); BUN Creatinine Ratio 3.1 (6-22); Bilirubin Total 0.3 mg/dL (0.2-1.3); Blood Urea Nitrogen 11 mg/dL (9-20); Calcium 9.3 mg/dL (8.4-10.2); Carbon Dioxide 34 mmol/L (22-32); Chloride 95 mmol/L (98-107); Creatine Kinase 151 U/L (55-170); Estimated Glomerular Filt Rate 17.6 mL/min (>60); Globulin 2.7 g/dL (1.7-4.1); Glucose 112 mg/dL (80-110); HEMOLYSIS < 15 (0-50); Potassium 4.4 mmol/L (3.4-5.1); Sodium 138 mmol/L (137-145); Total Protein 6.9 g/dL (6.3-8.2)
[2019-08-21 19:57] LABS: B Type Natriuretic Peptide 408 (<100)
[2019-08-21 20:02] LABS: CKMB % Relative Index 1.3 % (1.5-5.0); Creatine Kinase MB 1.97 ng/mL (<2.37)
[2019-08-21 20:25] VITALS: BP 106/66; PULSE 103; RESP 24; O2SAT 94
== END 2019-08-21 20:28 | disposition home or self-care (01) ==
PROVIDERS: Emergency Provider Nurse Practitioner; Family Provider Family Medicine; PCP Family Medicine
DX: J18.9 Pneumonia, unspecified organism (principal); J44.9 Chronic obstructive pulmonary disease, unspecified; C34.90 Malignant neoplasm of unspecified part of unspecified bronchus or lung
CPT/HCPCS: 36415; 71046; 80053; 82550; 82553; 83880; 84484; 85025; 93005; 94640; 99282; 99285

== ENCOUNTER → 2019-09-14 09:22 | Outpatient (CLI) | payer MEDICARE, OTHER, MEDICAID, SELFPAY ==
--- NOTE | 2019-09-14 09:24 | DI.CT.S_ITS ---
PROCEDURE: CT CHEST ABD PEL W CON INDICATIONS: f/u lung cancer TECHNIQUE: After the administration of oral and intravenous contrast, 5 mm thick sections acquired from the lung apices to the symphysis. 5 mm coronal and sagittal reformats were performed, with additional 7 mm coronal MIP reformats through the lungs. For radiation dose reduction, the following was used: automated exposure control, adjustment of mA and/or kV according to patient size. COMPARISON: [facility], CT, CT CHEST WO CON, 06/22/2019, 12:06. [facility], CT, CT CHEST ABD PEL W CON, 03/28/2019, 12:27. FINDINGS: Image quality: Excellent. CHEST: Lungs and pleura: No acute airspace opacities, and a previously present nodular mass measuring up to 1.5 x 1.6 cm right middle lobe posteriorly abutting the major fissure is again noted, without significant enlargement or diminishment in size over time. There is a small focus of subsolid airspace disease right upper lobe near the apex measuring up to 1.1 cm, stable over time, and also a peripheral nodular radiodensity at the lateral right upper lobe measuring up to 2 cm in diameter, also stable over time. This abuts the pleural surface. Finally, at the lateral superior segment left lower lobe a small focus of airspace disease is little if any change from comparison. No pleural effusions or pneumothorax. Central and peripheral airways appear patent and normal in caliber. Mediastinum: Heart size is normal. No pericardial effusion. No mediastinal or hilar adenopathy by size criteria. Thoracic aorta and central pulmonary arteries are normal in size. Esophagus is normal in caliber. No hiatal hernia. Chest wall: No axillary or supraclavicular adenopathy by size criteria. Thyroid gland appears normal where well seen. ABDOMEN: Solid organs: Liver is normal in size and enhancement. Gallbladder has been previously resected. Biliary system is non dilated. Pancreas enhances normally. Spleen is normal in size and enhancement. No adrenal nodules. Kidneys demonstrate normal size and enhancement, without hydronephrosis. Peritoneum and bowel: Bowel loops demonstrate normal wall thickness and caliber. No free fluid or air. Nodes and vessels: No retroperitoneal or mesenteric adenopathy by size criteria. Aorta and inferior vena cava are normal in size. Miscellaneous: No ventral hernias. PELVIS: Genitourinary: Bladder wall thickness is normal. Miscellaneous: No inguinal hernias or adenopathy. Bones: No suspicious bony lesions. No vertebral body compression fractures. IMPRESSION: 1. Multifocal areas of airspace disease are present in this patient bilaterally, none of which appears to represent a new finding or show interval enlargement with reference to prior CT scanning when differences in scan level are taken into account 2. No active metastatic disease is found by CT appearance. 3. Prior cholecystectomy. Dictated by: Anirudh Camejo M.D. on 09/14/2019 at 15:01 Approved by: Anirudh Camejo M.D. on 09/14/2019 at 15:17
== END ==
PROVIDERS: Family Provider Family Medicine; PCP Family Medicine
DX: C34.90 Malignant neoplasm of unspecified part of unspecified bronchus or lung (principal); C79.31 Secondary malignant neoplasm of brain; Z90.49 Acquired absence of other specified parts of digestive tract
CPT/HCPCS: 71260; 74177; Q9967

== ENCOUNTER → 2019-09-21 12:47 | Outpatient (CLI) | payer MEDICARE, MEDICAID, SELFPAY ==
--- NOTE | 2019-09-21 12:49 | DI.MRI.S_ITS ---
PROCEDURE: MR HEAD/BRAIN WO CON INDICATIONS: f/u lung cancer, prior brain met TECHNIQUE: Non-contrast axial T1 spin echo, axial T2 fast spin echo, sagittal and axial FLAIR, coronal T2 fast spin echo, axial gradient echo, axial diffusion and ADC through the brain. COMPARISON: [facility], MR, MR HEAD/BRAIN WO CON, 06/22/2019, 12:19. [facility], MR, MR BRAIN (IAC) WWO CON, 03/28/2019, 12:40. [facility], MR, MR BRAIN WITH/WITHOUT CONTRAST, 01/10/2019, 19:07. [facility], MR, MR BRAIN WITHOUT CONTRAST, 01/06/2019, 17:15. FINDINGS: Image quality: Excellent. CSF spaces: Ventricles appear symmetric in size and shape. Basal cisterns are patent. No extra-axial fluid collections. Brain: A right frontal surgical resection cavity is stable compared to prior exams. Increased T2 signal surrounding the right frontal surgical resection cavity is stable in size and contour compared to prior examinations. There is new increased T2 signal involving cortical charles matter of the left frontal operculum new punctate focus of increased T2 signal in the left frontal subcortical white matter compared to 06/22/2019. No intracranial bleeds or mass effects. There is cerebral volume loss for age. There are periventricular and deep white matter chronic small vessel ischemic changes. Brainstem appears normal. Diffusion-weighted images show no acute ischemic insults. Normal intravascular flow voids are present. Skull and face: Postsurgical changes compatible prior right frontal craniotomy are stable. Calvarial bone marrow is normal in signal. Orbits are normal. Sinuses: Sinuses and mastoids are clear. IMPRESSION: 1. Right frontal surgical resection cavity is stable compared to 06/22/2019 with no evidence of local recurrence of metastatic disease. 2. New areas of increased T2 signal involving the left frontal charles matter and left frontal subcortical white matter may be related to subacute infarct versus metastatic disease. Recommend MRI of the brain with gadolinium contrast for further characterization. Dictated by: Batsheva Somers MD, PhD on 09/21/2019 at 14:50 Approved by: Batsheva Somers MD, PhD on 09/21/2019 at 15:00
== END ==
PROVIDERS: Family Provider Family Medicine; PCP Family Medicine
DX: C34.90 Malignant neoplasm of unspecified part of unspecified bronchus or lung (principal); C79.31 Secondary malignant neoplasm of brain
CPT/HCPCS: 70551

== ENCOUNTER → 2019-11-14 12:26 | Outpatient (CLI) | payer MEDICARE, MEDICAID, SELFPAY ==
--- NOTE | 2019-11-14 12:46 | DI.CT.S_ITS ---
PROCEDURE: CT CHEST WO CON INDICATIONS: LUNG CANCER TECHNIQUE: Noncontrast 5 mm thick sections acquired from the pulmonary apices to the posterior costophrenic angles. 1 mm lung window, 5 mm thick coronal and sagittal and 7 mm axial MIP reformats were then acquired. For radiation dose reduction, the following was used: automated exposure control, adjustment of mA and/or kV according to patient size. COMPARISON: [facility], CT, CT CHEST ABD PEL W CON, 03/28/2019, 12:27. [facility], MR, MR HEAD/BRAIN WO CON, 06/22/2019, 12:19. [facility], CT, CT CHEST ABD PEL W CON, 09/14/2019, 10:38. [facility], CT, CT CHEST WO CON, 06/22/2019, 12:06. FINDINGS: Image quality: Excellent. Lungs and pleura: No acute air space opacities. 3 separate areas of airspace disease within the right lung are stable over time, comprised of a 1.1 cm area of subsolid air space radiodensity right apex (series 3 image 66), more inferiorly at the right posterolateral lung abutting the pleural surface measuring up to 2.0 cm (series 3 image 103) and then within the right middle lobe lung parenchyma abutting the major fissure even more inferiorly (series 3 image 179, measuring up to 1.7 cm in diameter. No pleural effusions or pneumothorax. Central and peripheral airways are patent and normal in caliber. Mediastinum: Heart size is normal. No pericardial effusion. No mediastinal adenopathy by size criteria. Thoracic aorta and central pulmonary arteries are normal in size. Esophagus is normal in caliber. No hiatal hernia. Central line appears in normal position, from right sided approach, extending to the atrial caval junction. Bones and chest wall: No suspicious bony lesions. No vertebral body compression fractures. No axillary or supraclavicular adenopathy by size criteria. Thyroid gland is not well-seen by this noncontrast technique. Abdomen: Visualized upper abdominal solid organs and bowel loops appear normal in the absence of contrast. IMPRESSION: Stable appearance of 3 areas of right upper and mid lung radiodensities as discussed above from March of 2019 over the prior 4 CT scans, and no new evidence of lung mass or mediastinal/hilar adenopathy is found. Dictated by: Anirudh Camejo M.D. on 11/14/2019 at 14:46 Approved by: Anirudh Camejo M.D. on 11/14/2019 at 15:05
== END ==
PROVIDERS: Family Provider Family Medicine; PCP Family Medicine; Referring Provider Internal Medicine Hematology & Oncology; Visit Provider Internal Medicine Hematology & Oncology
DX: C34.90 Malignant neoplasm of unspecified part of unspecified bronchus or lung (principal); C79.31 Secondary malignant neoplasm of brain
CPT/HCPCS: 71250

== ENCOUNTER → 2019-12-12 10:49 | Outpatient (CLI) | payer MEDICARE, MEDICAID, SELFPAY ==
--- NOTE | 2019-12-12 10:55 | DI.MRI.S_ITS ---
PROCEDURE: MR HEAD/BRAIN WO/W CON INDICATIONS: metastatic lung cancer TECHNIQUE: Noncontrast axial T1 spin echo, axial T2 fast spin echo, sagittal and axial FLAIR, coronal T2 fast spin echo, axial gradient echo, axial diffusion and ADC through the brain. After the administration of contrast, axial and coronal T1 spin echo with fat saturation through the brain. COMPARISON: [facility], MR, MR HEAD/BRAIN WO CON, 09/21/2019, 13:31. [facility], MR, MR HEAD/BRAIN WO CON, 06/22/2019, 12:19. [facility], MR, MR BRAIN WITH/WITHOUT CONTRAST, 01/10/2019, 19:07. [facility], MR, MR BRAIN WITHOUT CONTRAST, 01/06/2019, 17:15. [facility], MR, MR HEAD/BRAIN WO/W CON, 12/15/2018, 12:55. FINDINGS: Image quality: Excellent. CSF spaces: Basal cisterns are patent. No extra-axial fluid collections. Ventricles are normal in size and shape. Brain: No midline shift. No intracranial bleeds or masses. No new suspicious intracranial enhancement. There is unchanged appearance of right frontal encephalomalacia and gliosis Additional T2 hyperintense subcortical white matter signal changes present within the left frontal lobe, however no definite enhancement and this could be chronic infarct or small vessel disease There is cerebral volume loss for age. There is periventricular white matter chronic small vessel ischemic change. The brainstem appears normal. Diffusion-weighted images demonstrate no acute ischemic insults. No chronic ischemic insults. Normal intravascular flow voids are present. Skull and face: Calvarial marrow is normal in signal. Orbits appear normal. Sinuses: Sinuses and mastoids appear clear. IMPRESSION: Overall, no suspicious enhancement to suggest progressive metastatic disease. Left frontal lobe signal changes demonstrate no associated enhancement and probably represent evolving encephalomalacia/gliosis although recommend continued attention to this area on subsequent surveillance studies. Dictated by: Ian Mitchell M.D. on 12/12/2019 at 12:18 Approved by: Ian Mitchell M.D. on 12/12/2019 at 12:30
== END ==
PROVIDERS: Family Provider Family Medicine; PCP Family Medicine; Referring Provider Internal Medicine Hematology & Oncology; Visit Provider Internal Medicine Hematology & Oncology
DX: C34.90 Malignant neoplasm of unspecified part of unspecified bronchus or lung (principal); C79.31 Secondary malignant neoplasm of brain; G93.89 Other specified disorders of brain
CPT/HCPCS: 70553; A9579

== ENCOUNTER → 2020-07-02 10:55 | Outpatient (CLI) | payer MEDICARE, MEDICAID, SELFPAY ==
--- NOTE | 2020-07-02 10:58 | DI.MRI.S_ITS ---
PROCEDURE: MR HEAD/BRAIN WO/W CON INDICATIONS: lung cancer TECHNIQUE: Noncontrast axial T1 spin echo, axial T2 fast spin echo, sagittal and axial FLAIR, coronal T2 fast spin echo, axial gradient echo, axial diffusion and ADC through the brain. After the administration of contrast, axial and coronal 3D VIBE or T1 spin echo with fat saturation through the brain. COMPARISON: [facility], MR, MR HEAD/BRAIN WO/W CON, 12/12/2019, 11:22. [facility], MR, MR HEAD/BRAIN WO CON, 09/21/2019, 13:31. [facility], MR, MR HEAD/BRAIN WO CON, 06/22/2019, 12:19. [facility], MR, MR BRAIN (IAC) WWO CON, 03/28/2019, 12:40. [facility], MR, MR BRAIN WITH/WITHOUT CONTRAST, 01/10/2019, 19:07. [facility], MR, MR BRAIN WITHOUT CONTRAST, 01/06/2019, 17:15. [facility], MR, MR HEAD/BRAIN WO/W CON, 12/15/2018, 12:55. [facility], MR, MR BRAIN WITH/WITHOUT CONTRAST, 10/25/2018, 23:18. FINDINGS: Image quality: Excellent. CSF Spaces: Basal cisterns are patent. No extra-axial fluid collections. Ventricles are normal in size and shape. Brain: Right frontal surgical resection cavity with surrounding gliosis stable compared to December 12, 2019. Focus of increased T2 signal in the left frontal operculum is stable compared to December 12, 2019. No midline shift. No intracranial bleeds or masses. No abnormal intracranial enhancement. The brainstem appears normal. Diffusion-weighted images demonstrate no acute ischemic insults. No chronic ischemic insults. Normal intravascular flow voids are present. Dural sinuses demonstrate normal postcontrast enhancement. Skull and face: Postsurgical changes compatible with prior frontal craniotomy are stable. Orbits appear normal. Sinuses: Sinuses and mastoids appear clear. IMPRESSION: 1. Stable examination compared to 12/12/2019, 09/21/2019 and 06/22/2019. 2. Right frontal surgical resection cavity is stable compared to prior examinations. 3. Area of increased T2 signal in the right frontal operculum stable compared to prior examinations. 4. No suspicious postcontrast enhancement. 5. No abnormal intracranial mass or mass effect. Dictated by: Batsheva Somers MD, PhD on 07/02/2020 at 12:16 Approved by: Batsheva Somers MD, PhD on 07/02/2020 at 13:08
--- NOTE | 2020-07-02 10:58 | DI.CT.S_ITS ---
PROCEDURE: CT CHEST WO CON INDICATIONS: lung cancer TECHNIQUE: Noncontrast 5 mm thick sections acquired from the pulmonary apices to the posterior costophrenic angles. 1 mm lung window, 5 mm thick coronal and sagittal and 7 mm axial MIP reformats were then acquired. For radiation dose reduction, the following was used: automated exposure control, adjustment of mA and/or kV according to patient size. COMPARISON: [facility], [place], [place] PET CT FUSION SKULL 2 THIGH, 12/28/2018, 16:43. [facility], CT, CT CHEST ABDOMEN PELVIS WITH CONTRAST, 10/21/2018, 10:20. [facility], CT, CT CHEST ABD PEL W CON, 03/28/2019, 12:27. [facility], CT, CT CHEST WO CON, 06/22/2019, 12:06. [facility], CT, CT CHEST ABD PEL W CON, 09/14/2019, 10:38. [facility], CT, CT CHEST WO CON, 11/14/2019, 12:25. FINDINGS: Image quality: Excellent. Lungs and pleura: There is an pleural-based irregular mass redemonstrated in the right upper lobe which appears progressively decreased in size compared to previous exams. This measures approximately 2.4 x 2.3 cm in transverse dimension compared to 2.7 x 2.5 cm at a comparable level on the prior study. An irregular subsolid nodule within the right upper lobe centered on series 3, image 100 demonstrates a solid component measuring approximately 1.6 x 1.2 cm in transverse dimension which appears similar to the prior studies. However, the ground-glass components demonstrate progressive slight increase in size compared to the previous studies. Within the right middle lobe, there is an irregular perihilar multilobulated nodule measuring up to 1.8 x 1.8 cm in transverse dimension an approximately 2.0 cm in craniocaudal dimension which appears similar to the prior studies. Within the left upper lobe, there is a small subpleural nodule measuring 0.4 cm on image 82 which appears similar in size to the prior studies given differences in technique. Within the superior segment of the left lower lobe, there is an irregular subsolid nodule with a solid nodular component centrally measuring up to approximately 0.4 cm and adjacent indistinct ground-glass opacities. This appears similar to the prior studies given differences in technique. Elsewhere, there are few scattered indistinct small ground-glass nodular opacities bilaterally which are too small to characterize but appear similar to the prior studies. No pleural effusions or pneumothorax. The trachea and central airways appear patent. Mediastinum: Heart size is normal. No pericardial effusion. Mild thickening of the pericardium is redemonstrated. There is coronary arterial vascular calcification. No mediastinal adenopathy by size criteria. Thoracic aorta and central pulmonary arteries are normal in size. Esophagus is normal in caliber. There is a small hiatal hernia. Bones and chest wall: There is a right chest wall internal jugular Port-A-Cath with the tip extending to the cavoatrial junction. No suspicious bony lesions. No vertebral body compression fractures. No axillary or supraclavicular adenopathy by size criteria. Abdomen: Visualized upper abdominal solid organs and bowel loops appear normal in the absence of contrast. IMPRESSION: 1. Progressive decrease in size of an irregular pleural-based mass peripherally in the right upper lobe consistent with response to therapy. 2. Irregular subsolid nodule in the right upper lobe demonstrates progressive increase in size of the ground-glass component. Although these demonstrate low FDG uptake on the prior PET-CT, findings likely represent a variant of adenocarcinoma. 2. Irregular right middle lobe perihilar nodule appears similar in size to the prior studies. However, the morphologic appearance is also suspicious for malignancy including a variant of adenocarcinoma. 3. Irregular subsolid nodule within the superior segment of the left lower lobe also appears similar to the prior studies but is also suspicious for a variant of adenocarcinoma. 4. No mediastinal or hilar lymphadenopathy by size criteria. 5. Pericardial thickening redemonstrated suggesting sequelae of prior pericarditis. Dictated by: Anuj Walters M.D. on 07/02/2020 at 11:50 Approved by: Anuj Walters M.D. on 07/02/2020 at 12:15
== END ==
PROVIDERS: Family Provider Family Medicine; PCP Family Medicine; Referring Provider Internal Medicine Hematology & Oncology; Visit Provider Internal Medicine Hematology & Oncology
DX: C34.11 Malignant neoplasm of upper lobe, right bronchus or lung (principal); C79.31 Secondary malignant neoplasm of brain; R91.8 Other nonspecific abnormal finding of lung field
CPT/HCPCS: 70553; 71250

== ENCOUNTER → 2020-10-22 10:22 | Outpatient (CLI) | payer MEDICARE, MEDICAID, SELFPAY ==
--- NOTE | 2020-10-22 10:25 | DI.MRI.S_ITS ---
PROCEDURE: MR HEAD/BRAIN WO/W CON INDICATIONS: brain mets, lung ca TECHNIQUE: Noncontrast axial T1 spin echo, axial T2 fast spin echo, sagittal and axial FLAIR, coronal T2 fast spin echo, axial gradient echo, axial diffusion and ADC through the brain. After the administration of contrast, axial and coronal 3D VIBE or T1 spin echo with fat saturation through the brain. COMPARISON: [facility], MR, MR HEAD/BRAIN WO/W CON, 07/02/2020, 11:24. [facility], MR, MR HEAD/BRAIN WO/W CON, 12/12/2019, 11:22. FINDINGS: Image quality: Excellent. CSF Spaces: Basal cisterns are patent. No extra-axial fluid collections. Ventricles are normal in size and shape. Brain: No midline shift. No new intracranial bleeds or masses. High the 2 areas of encephalomalacia, involving the superior right frontal parietal junction and the superior anterior left temporal areas show no change, and no contrast enhanced mass lesion within. No evidence of new metastatic disease is found. No abnormal intracranial enhancement. The brainstem appears normal. Diffusion-weighted images demonstrate no acute ischemic insults. No chronic ischemic insults. Normal intravascular flow voids are present. Skull and face: Calvarial marrow is normal in signal. Orbits appear normal. Sinuses: Sinuses and mastoids appear clear. IMPRESSION: Areas of prior encephalomalacia presumably related to prior brain parenchymal metastatic disease bilaterally are stable over time and no new mass or abnormal area of contrast enhancement has developed. No mass effect is currently seen. Dictated by: Anirudh Camejo M.D. on 10/22/2020 at 11:42 Approved by: Anirudh Camejo M.D. on 10/22/2020 at 11:47
--- NOTE | 2020-10-22 10:25 | DI.CT.S_ITS ---
PROCEDURE: CT CHEST WO CON INDICATIONS: brain mets, lung cancer TECHNIQUE: Noncontrast 5 mm thick sections acquired from the pulmonary apices to the posterior costophrenic angles. 1 mm lung window, 5 mm thick coronal and sagittal and 7 mm axial MIP reformats were then acquired. For radiation dose reduction, the following was used: automated exposure control, adjustment of mA and/or kV according to patient size. COMPARISON: [facility], CT, CT CHEST WO CON, 07/02/2020, 11:12. [facility], CT, CT CHEST WO CON, 11/14/2019, 12:25. FINDINGS: Image quality: Excellent. Lungs and pleura: No acute air space opacities. Previously present lung abnormalities seen bilaterally, larger on the right than the left, are again noted. At the right upper lobe posteriorly near the lung apex there is a vaguely marginated area of focal airspace disease measuring up to 1.3 x 1.5 cm. More inferiorly on the right at the posterolateral right upper lobe there is a 2.3 x 2.3 cm angular area of focal airspace disease. More inferiorly involving the right mid lung abutting the anterior border of the major fissure there is a 1.7 by 1.4 cm mildly irregular lobulated mass. This has not enlarged. At the superior segment of the left lower lobe, axial level of the gaudencio, there is a vaguely marginated focal radiodensity that has not changed in size or morphology from 07/02/90. More superiorly within the left upper lobe a 3 mm posterior pulmonary nodule abuts the pleural surface, as was previously the case. No pleural effusions or pneumothorax. Central and peripheral airways are patent and normal in caliber. Mediastinum: Heart size is normal. No pericardial effusion. No mediastinal adenopathy by size criteria. Thoracic aorta and central pulmonary arteries are normal in size. Esophagus is normal in caliber. No hiatal hernia. Bones and chest wall: No suspicious bony lesions. No vertebral body compression fractures. No axillary or supraclavicular adenopathy by size criteria. Thyroid gland is not well seen by this noncontrast technique. . Abdomen: Visualized upper abdominal solid organs and bowel loops appear normal in the absence of contrast. IMPRESSION: Bilateral lung nodules, larger on the right than the left, but with virtually no change in size or morphology from 07/02/20. Port-A-Cath from right-sided approach extends into the distal SVC. This terminates within the superior margin of the right atrium. Dictated by: Anirudh Camejo M.D. on 10/22/2020 at 11:47 Approved by: Anirudh Camejo M.D. on 10/22/2020 at 11:51
== END ==
PROVIDERS: Family Provider Family Medicine; PCP Family Medicine; Referring Provider Internal Medicine Hematology & Oncology; Visit Provider Internal Medicine Hematology & Oncology
DX: C34.11 Malignant neoplasm of upper lobe, right bronchus or lung; C79.31 Secondary malignant neoplasm of brain; G93.89 Other specified disorders of brain; R91.8 Other nonspecific abnormal finding of lung field; Z95.828 Presence of other vascular implants and grafts
CPT/HCPCS: 70553; 71250

== ENCOUNTER 2020-11-18 17:38 | Emergency (ER) | payer MEDICARE, MEDICAID, SELFPAY ==
[2020-11-18] VITALS (11 sets, daily range): BP systolic 131–145; BP diastolic 59–78; PULSE 77–95; RESP 11–24; TEMP 37; O2SAT 95–99
--- NOTE | 2020-11-18 18:38 | ED.ABDPAIN ---
HPI - Abdominal Pain General Chief Complaint: Abdominal Pain Stated Complaint: Abdominal pain with black stool Time Seen by Provider: 11/18/20 18:38 Source: patient and family Mode of arrival: Ambulatory History of Present Illness HPI narrative: 65-year-old gentleman with a history of metastatic lung cancer, dialysis, asthma, reflux, diabetes, hyperlipidemia presents complaining of abdominal pain and black stools 5 days ago. He typically dialyzes on Wednesdays and . Last Wednesday he noticed increased abdominal pain vomiting that was not bloody and black diarrhea. The vomiting and diarrhea both resolved but he was having enough diarrhea on Wednesday that he did not dialyze. By Wednesday he was still having some mild abdominal pain, was back to brown stools and dialyzed without difficulty both Wednesday and today. He talked with his doctor about the black stools a week ago and was instructed to come to the emergency department. Aside from the abdominal pain he has no other complaints at this time. Related Data Home Medications Medication Instructions Recorded Confirmed CALCIUM ACETATE (PHOSLO~) 667 mg PO QDAY #0 05/24/13 10/31/20 OMEPRAZOLE 20 mg PO BID #0 05/24/13 10/31/20 VITAMIN D (Vitamin D3) 3,000 unit PO DAILY #0 05/24/13 10/31/20 [DIALYVITE] 100 mg PO QDAY #0 05/24/13 10/31/20 [LEVOTHYROXINE] 225 mcg PO QDAY #0 05/24/13 10/31/20 aspirin 325 mg PO QDAY #0 05/24/13 10/31/20 olanzapine [Zyprexa] 5 mg PO QDAY #0 05/24/13 10/31/20 paroxetine HCl [Paxil] 20 mg PO QDAY #0 05/24/13 10/31/20 sevelamer carbonate [Renvela] 1,600 mg PO DAILY #0 05/24/13 10/31/20 simvastatin [Zocor] 20 mg DAILY #0 05/24/13 10/31/20 Incruse Ellipta 1 inh INHALATION DAILY 12/20/18 10/31/20 albuterol sulfate [ProAir HFA] 2 puff INHALATION Q4-6H 12/20/18 10/31/20 hydrocodone-acetaminophen 1 tab PO Q4-6H PRN 12/20/18 10/31/20 ketoconazole 1 applic TOPICAL BID 12/20/18 10/31/20 loratadine 10 mg PO DAILY 12/20/18 10/31/20 ondansetron 4 mg PO Q6-8H PRN 12/20/18 10/31/20 pioglitazone 45 mg PO DAILY 03/14/19 10/31/20 Previous Rx's Medication Instructions Recorded acetaminophen 500 mg PO Q4H PRN #14 cap 02/22/19 albuterol sulfate 1.25 mg INHALATION Q4-6H PRN #75 ml 08/21/19 Allergies Allergy/AdvReac Type Severity Reaction Status Date / Time Penicillins Allergy Severe passed out Verified 02/22/19 15:06 codeine Allergy Intermediate hurt worse Verified 02/22/19 15:06 Review of Systems Review of Systems ROS Unobtainable: All systems reviewed & are unremarkable except as noted in HPI and below Patient History Medical History Arthritis Back pain Bipolar 1 disorder Chest pain COPD (chronic obstructive pulmonary disease) Diabetes GERD (gastroesophageal reflux disease) History of renal dialysis HLD (hyperlipidemia) HTN (hypertension) Hypotension Lung cancer Poor balance Renal failure Weakness Surgical History AV (arteriovenous fistula) H/O umbilical hernia repair History of cholecystectomy Hx of brain surgery (~10/2018) Family History Father Hypertension Heart disease Diabetes mellitus Mother Cancer Social History marital status: household members: spouse and children occupational status: unemployed Smoking Status: Current every day smoker alcohol intake: never Smoking Status: Current every day smoker Substance Use Type: does not use Exam Narrative Exam Narrative: General: no acute distress. Well-nourished well-developed HEENT: Moist mucous membranes, normal sclera with reactive pupils, Respiratory: Lungs with mild scattered wheezing no rales no rhonchi. Full and symmetrical air movement Cardiac: Regular rate and rhythm no murmurs no bruits Abdomen: Soft, diffuse tenderness without rebound or guarding, good bowel tones, no flank pain Skin: Warm and dry, no rashes Neurologic: Grossly neurologically intact with no obvious asymmetries or abnormalities Extremities: No trauma, well perfused Psych: Poor eye contact, poor insight into overall medical diagnoses but cooperative Rectal exam: Brown guaiac-negative stool Initial Vital Signs Initial Vital Signs: Vital Signs Temperature 98.6 F 11/18/20 17:45 Pulse Rate 95 H 11/18/20 17:45 Respiratory Rate 24 11/18/20 17:45 Blood Pressure 131/59 L 11/18/20 17:45 Pulse Oximetry 95 11/18/20 17:45 Course Orders Ordered: Discontinued Medications Pantoprazole Sodium (Pantoprazole 40 Mg Vial) 40 mg IV NOW ONE Stop: 11/18/20 18:51 Last Admin: 11/18/20 18:55 Dose: 40 mg Documented by: ROBERTO Potassium Chloride (Potassium Chloride 20 Meq Tab) 40 meq PO NOW ONE Stop: 11/18/20 22:33 Last Admin: 11/18/20 22:41 Dose: 40 meq Documented by: KRUPA Vital Signs Vital signs: Vital Signs - 8 hr 11/18/20 22:00 11/18/20 22:01 11/18/20 22:41 Pulse Rate 84 85 77 Respiratory Rate 11 L 20 20 Blood Pressure 145/67 H Pulse Oximetry 98 97 98 MDM - Abdominal Pain Medical Records Attestation: I reviewed the patient's medical records. Lab Data Attestation: I reviewed the patient's lab results. Result diagrams: 11/18/20 18:29 11/18/20 18:29 Labs: Lab Results 11/18/20 11/18/20 11/18/20 Range/Units 18:29 18:29 18:29 WBC 3.5 L (4.5-11.0) X10^3/uL RBC 3.04 L (4.5-5.9) X10^6/uL Hgb 10.0 L (13.5-17.5) g/dL Hct 29.8 L (41-53) % MCV 98.0 (80-100) fL MCH 33.1 (26-34) PG MCHC 33.7 (30-36) % RDW 13.6 (11.6-14.8) % Plt Count 147 L (150-400) X10^3/uL Neut % (Auto) 69.1 (50-75) % Lymph % (Auto) 12.3 L (25-40) % [place] % (Auto) 13.5 (3-14) % Eos % (Auto) 4.1 H (2-4) % Baso % (Auto) 1.0 (0-2) % Neut # (Auto) 2400 (5515-3413) /uL Lymph # (Auto) 400 L (0602-3800) /uL [place] # (Auto) 500 (0-900) /uL Eos # (Auto) 100 (0-450) /uL Baso # (Auto) 0 (0-100) /uL PT 10.2 (10.1-12.7) SECONDS INR 0.9 (0.9-1.3) APTT 48 H (26.4-36.2) SECONDS Sodium 133 L (137-145) mmol/L Potassium 3.1 L (3.4-5.1) mmol/L Chloride 93 L (98-107) mmol/L Carbon Dioxide 38 H (22-32) mmol/L BUN 9 (9-20) mg/dL Creatinine 3.47 H (0.66-1.25) mg/dL Estimated GFR 17.7 L (>60) mL/min BUN/Creatinine Ratio 2.6 L (6-22) Glucose 153 H (80-110) mg/dL Calcium 8.1 L (8.4-10.2) mg/dL Total Bilirubin 0.3 (0.2-1.3) mg/dL AST 15 L (17-59) IU/L ALT 9 (<50) IU/L Alkaline Phosphatase 128 H (38-126) U/L Total Protein 5.8 L (6.3-8.2) g/dL Albumin 3.4 L (3.5-5.0) g/dL Globulin 2.4 (1.7-4.1) g/dL Albumin/Globulin Ratio 1.4 (1.0-2.8) Lipase 19 L (23-300) U/L Blood Type Antibody Screen 11/18/20 Range/Units 18:29 WBC (4.5-11.0) X10^3/uL RBC (4.5-5.9) X10^6/uL Hgb (13.5-17.5) g/dL Hct (41-53) % MCV (80-100) fL MCH (26-34) PG MCHC (30-36) % RDW (11.6-14.8) % Plt Count (150-400) X10^3/uL Neut % (Auto) (50-75) % Lymph % (Auto) (25-40) % [place] % (Auto) (3-14) % Eos % (Auto) (2-4) % Baso % (Auto) (0-2) % Neut # (Auto) (2174-0013) /uL Lymph # (Auto) (1647-4266) /uL [place] # (Auto) (0-900) /uL Eos # (Auto) (0-450) /uL Baso # (Auto) (0-100) /uL PT (10.1-12.7) SECONDS INR (0.9-1.3) APTT (26.4-36.2) SECONDS Sodium (137-145) mmol/L Potassium (3.4-5.1) mmol/L Chloride (98-107) mmol/L Carbon Dioxide (22-32) mmol/L BUN (9-20) mg/dL Creatinine (0.66-1.25) mg/dL Estimated GFR (>60) mL/min BUN/Creatinine Ratio (6-22) Glucose (80-110) mg/dL Calcium (8.4-10.2) mg/dL Total Bilirubin (0.2-1.3) mg/dL AST (17-59) IU/L ALT (<50) IU/L Alkaline Phosphatase (38-126) U/L Total Protein (6.3-8.2) g/dL Albumin (3.5-5.0) g/dL Globulin (1.7-4.1) g/dL Albumin/Globulin Ratio (1.0-2.8) Lipase (23-300) U/L Blood Type A Positive Antibody Screen Negative Imaging Data CT scan - abdomen/pelvis: Radiologist's Impression: FINDINGS: Image quality: Excellent. Image quality: Excellent. Lung bases: Lung bases are clear. Heart size is normal. Solid organs: Liver: The liver has no mass or intrahepatic biliary ductal dilatation. The portal vein and hepatic veins are patent. Biliary: Status post cholecystectomy. Pancreas: The pancreas has no mass or ductal dilatation. There is no surrounding inflammation. Spleen: Normal size. There are no masses. Adrenals: No hypertrophy or nodules. Kidneys: Both kidneys are severely atrophic with multiple cysts. No renal masses. Peritoneum and bowel: The distal esophagus and stomach are normal. The small bowel has a normal caliber and appearance. The terminal ileum is normal. The large bowel has a normal caliber and appearance. The appendix is normal. No free fluid or air. There is a small hiatal hernia. There is fatty infiltration of the cecum and the proximal right colon. This is nonspecific but can be seen with inflammatory bowel disease. Nodes and vessels: No retroperitoneal or mesenteric adenopathy by size criteria. The aorta has atherosclerosis with no aneurysmal dilatation. Miscellaneous: Bilateral fat containing inguinal hernias. PELVIS: Genitourinary: The bladder has no wall thickening or mass. No bladder calcifications. Miscellaneous: No inguinal hernias or adenopathy. Bones: There are multilevel degenerative changes with disc disease most severe at L4-5 and L5-S1. Schmorl's nodes at the inferior endplates of T11, T12, and L1 are seen. No vertebral body compression fractures. Disc bulges of L4-5 and L5-S1 are noted. Status post laminectomy of L5. CT is not evaluate the central canal well, however there may be significant central canal stenosis at L4-5 and L5-S1. Recommend MRI if clinically indicated. There is mottling of the bones, likely due to underlying renal failure. IMPRESSION: 1. No acute abdominal or pelvic abnormality. 2. Diverticulosis without evidence of diverticulitis. 3. Fatty infiltration of the terminal ileum, cecum and right colon. This can be seen with inflammatory bowel disease such as Crohn's. 4. Degenerative changes of the lumbar spine with disc disease at L4-5 and L5-S1. There may be significant central canal stenosis due to disc bulges. Recommend MRI if clinically indicated. 5. Bilateral fat containing inguinal hernias. 6. Small hiatal hernia. Dictated by: Matt Tesfaye M.D. on 11/18/2020 at 20:24 ECG Data Attestation: I personally reviewed and interpreted this ECG as follows: Interpretation: Normal sinus rhythm at a rate of 89 MDM Narrative Medical decision making narrative: 65-year-old gentleman with history of metastatic cancer in dialysis presents with black stools and abdominal pain. Black stools have been resolved for the last 3 days the abdominal pain continues. CT scan is unremarkable. Labs are reassuring with no significant interval development of anemia. Care is reviewed with his oncologist particularly in light of contrast used for CT scan to see if alternate dialysis schedule would be recommended. At this point patient very much would prefer to go home. Is already on a proton pump inhibitor, is evidencing no signs of acute anemia or hemodynamic instability or continued GI bleeding, is scheduled for dialysis in 2 days and primary care follow-up in the next week. He is safe for home discharge Discharge Plan Departure Patient Disposition: Home Clinical Impression: Chronic kidney disease with end stage renal failure on dialysis, Hypokalemia GI bleed Qualifiers: GI bleed type/associated pathology: unspecified gastrointestinal hemorrhage type Qualified Code(s): K92.2 - Gastrointestinal hemorrhage, unspecified Instructions: DI for Gastrointestinal Bleeding Activity Restrictions/Additional Instructions: Thank you for coming in today You have been very patient with our busy ER tonight It does look like you had some bleeding from your stomach last Wednesday but it seems to his stopped. Your body is responding appropriately and there is no need for hospital admission today. CT scan of your abdomen does not show any life-threatening abnormalities or reason for admission. The CT scan does not show me an obvious explanation for your abdominal pain. Please do continue your stomach acid medicine, omeprazole. If your abdominal pain continues to be severe, it would be okay to use some of the Vicodin that you have available to you at home for that pain Your potassium was slightly low in the emergency department and I have given you a single oral dose. Please keep your dialysis appointment on Wednesday If you have symptoms that are worse or new or different, please feel free to return to the emergency department for further evaluation Prescriptions: No Action aspirin 325 MG tablet 325 mg PO QDAY Qty: 0 RF: 0 olanzapine [Zyprexa] 5 MG tablet 5 mg PO QDAY Qty: 0 RF: 0 paroxetine HCl [Paxil] 20 MG tablet 20 mg PO QDAY Qty: 0 RF: 0 simvastatin [Zocor] 20 MG tablet 20 mg DAILY Qty: 0 RF: 0 sevelamer carbonate [Renvela] 800 MG tablet 1,600 mg PO DAILY Qty: 0 RF: 0 CALCIUM ACETATE (PHOSLO~) 667 mg PO QDAY Qty: 0 RF: 0 OMEPRAZOLE 20 mg PO BID Qty: 0 RF: 0 VITAMIN D (Vitamin D3) 3,000 unit PO DAILY Qty: 0 RF: 0 [DIALYVITE] 100 mg PO QDAY Qty: 0 RF: 0 [LEVOTHYROXINE] 225 mcg PO QDAY Qty: 0 RF: 0 acetaminophen 500 mg capsule 500 mg PO Q4H PRN (Reason: pain) Qty: 14 RF: 0 hydrocodone-acetaminophen 5-325 mg Tablet 1 tab PO Q4-6H PRN (Reason: Pain (Scale Score 1-3)) RF: 0 ketoconazole 2 % Cream 1 applic TOPICAL BID RF: 0 Incruse Ellipta 62.5 mcg/actuation Blister With Device 1 inh INHALATION DAILY RF: 0 albuterol sulfate [ProAir HFA] 90 mcg/actuation Hfa Aerosol Inhaler 2 puff INHALATION Q4-6H RF: 0 ondansetron 4 mg Tablet,Disintegrating 4 mg PO Q6-8H PRN (Reason: Nausea) RF: 0 loratadine 10 mg Capsule 10 mg PO DAILY RF: 0 pioglitazone 30 mg Tablet 45 mg PO DAILY RF: 0 albuterol sulfate 1.25 mg/3 mL solution for nebulization 1.25 mg INHALATION Q4-6H PRN (Reason: bronchospasm) Qty: 75 RF: 0 Referrals: Nisha Young MD [Primary Care Provider] -
[2020-11-18 18:40] LABS: Add Manual Diff / Slide Review NO; Basophils Absolute Auto 0 /uL (0-100); Eosinophils Absolute Auto 100 /uL (0-450); Eosinophils Percent Auto 4.1 % (2-4); Hematocrit 29.8 % (41-53); Lymphocytes Absolute Auto 400 /uL (1100-4500); Lymphocytes Percent Auto 12.3 % (25-40); Mean Corpuscular HGB Conc 33.7 % (30-36); Mean Corpuscular Hemoglobin 33.1 PG (26-34); Monocytes Absolute Auto 500 /uL (0-900); Monocytes Percent Auto 13.5 % (3-14); Neutrophils Absolute Auto 2400 /uL (1500-7000); Neutrophils Percent Auto 69.1 % (50-75); Platelet Count 147 X10^3/uL (150-400); Red Blood Cell Count 3.04 X10^6/uL (4.5-5.9); Red Cell Distribution Width 13.6 % (11.6-14.8); White Blood Cell Count 3.5 X10^3/uL (4.5-11.0)
[2020-11-18 18:47] LABS: INR 0.9 (0.9-1.3); Prothrombin Time 10.2 SECONDS (10.1-12.7)
[2020-11-18 18:50] LABS: PTT Partial Thromboplastin Tim 48 SECONDS (26.4-36.2)
[2020-11-18 18:55] LABS: Alanine Aminotransferase 9 IU/L (<50); Albumin 3.4 g/dL (3.5-5.0); Albumin Globulin Ratio 1.4 (1.0-2.8); Alkaline Phosphatase 128 U/L (38-126); Aspartate Aminotransferase 15 IU/L (17-59); BUN Creatinine Ratio 2.6 (6-22); Bilirubin Total 0.3 mg/dL (0.2-1.3); Blood Urea Nitrogen 9 mg/dL (9-20); Calcium 8.1 mg/dL (8.4-10.2); Carbon Dioxide 38 mmol/L (22-32); Chloride 93 mmol/L (98-107); Estimated Glomerular Filt Rate 17.7 mL/min (>60); Globulin 2.4 g/dL (1.7-4.1); Glucose 153 mg/dL (80-110); HEMOLYSIS < 15 (0-50); Lipase 19 U/L (23-300); Potassium 3.1 mmol/L (3.4-5.1); Sodium 133 mmol/L (137-145); Total Protein 5.8 g/dL (6.3-8.2)
[2020-11-18] MEDS: PANTOPRAZOLE 40 MG VIAL IV (18:55)
--- NOTE | 2020-11-18 19:00 | DI.CT.S_ITS ---
PROCEDURE: CT ABDOMEN PELVIS W CON INDICATIONS: pain, GI bleed last week TECHNIQUE: After the administration of intravenous contrast, 5 mm thick sections acquired from the diaphragm to the symphysis. 5 mm coronal and sagittal reformats were acquired. For radiation dose reduction, the following was used: automated exposure control, adjustment of mA and/or kV according to patient size. COMPARISON: [facility], CT, CT CHEST WO CON, 10/22/2020, 10:45. [facility], MR, MR HEAD/BRAIN WO/W CON, 07/02/2020, 11:24. [facility], CT, CT CHEST ABD PEL W CON, 09/14/2019, 10:38. FINDINGS: Image quality: Excellent. Image quality: Excellent. Lung bases: Lung bases are clear. Heart size is normal. Solid organs: Liver: The liver has no mass or intrahepatic biliary ductal dilatation. The portal vein and hepatic veins are patent. Biliary: Status post cholecystectomy. Pancreas: The pancreas has no mass or ductal dilatation. There is no surrounding inflammation. Spleen: Normal size. There are no masses. Adrenals: No hypertrophy or nodules. Kidneys: Both kidneys are severely atrophic with multiple cysts. No renal masses. Peritoneum and bowel: The distal esophagus and stomach are normal. The small bowel has a normal caliber and appearance. The terminal ileum is normal. The large bowel has a normal caliber and appearance. The appendix is normal. No free fluid or air. There is a small hiatal hernia. There is fatty infiltration of the cecum and the proximal right colon. This is nonspecific but can be seen with inflammatory bowel disease. Nodes and vessels: No retroperitoneal or mesenteric adenopathy by size criteria. The aorta has atherosclerosis with no aneurysmal dilatation. Miscellaneous: Bilateral fat containing inguinal hernias. PELVIS: Genitourinary: The bladder has no wall thickening or mass. No bladder calcifications. Miscellaneous: No inguinal hernias or adenopathy. Bones: There are multilevel degenerative changes with disc disease most severe at L4-5 and L5-S1. Schmorl's nodes at the inferior endplates of T11, T12, and L1 are seen. No vertebral body compression fractures. Disc bulges of L4-5 and L5-S1 are noted. Status post laminectomy of L5. CT is not evaluate the central canal well, however there may be significant central canal stenosis at L4-5 and L5-S1. Recommend MRI if clinically indicated. There is mottling of the bones, likely due to underlying renal failure. IMPRESSION: 1. No acute abdominal or pelvic abnormality. 2. Diverticulosis without evidence of diverticulitis. 3. Fatty infiltration of the terminal ileum, cecum and right colon. This can be seen with inflammatory bowel disease such as Crohn's. 4. Degenerative changes of the lumbar spine with disc disease at L4-5 and L5-S1. There may be significant central canal stenosis due to disc bulges. Recommend MRI if clinically indicated. 5. Bilateral fat containing inguinal hernias. 6. Small hiatal hernia. Dictated by: Matt Tesfaye M.D. on 11/18/2020 at 20:24 Approved by: Matt Tesfaye M.D. on 11/18/2020 at 20:49
[2020-11-18] MEDS: POTASSIUM CHLORIDE 20 MEQ TAB 40 MEQ PO (22:41)
== END 2020-11-18 22:49 | disposition home or self-care (01) ==
PROVIDERS: Emergency Provider Emergency Medicine; Family Provider Family Medicine; PCP Family Medicine
DX: N18.6 End stage renal disease (principal); Z99.2 Dependence on renal dialysis; E87.6 Hypokalemia; K92.2 Gastrointestinal hemorrhage, unspecified; E11.9 Type 2 diabetes mellitus without complications; E78.5 Hyperlipidemia, unspecified; I10 Essential (primary) hypertension; Z85.118 Personal history of other malignant neoplasm of bronchus and lung
CPT/HCPCS: 36415; 74177; 80053; 83690; 85025; 85610; 85730; 86850; 86900; 86901; 93005; 93010; 96374; 99284; C9113; J1642; Q9967

== ENCOUNTER → 2020-12-17 11:51 | Outpatient (CLI) | payer MEDICARE, MEDICAID, SELFPAY ==
--- NOTE | 2020-12-17 11:53 | DI.MRI.S_ITS ---
PROCEDURE: MR HEAD/BRAIN WO/W CON INDICATIONS: metastatic lung cancer TECHNIQUE: Noncontrast axial T1 spin echo, axial T2 fast spin echo, sagittal and axial FLAIR, coronal T2 fast spin echo, axial gradient echo, axial diffusion and ADC through the brain. After the administration of contrast, axial and coronal T1 spin echo with fat saturation through the brain. COMPARISON: [facility], MR, MR HEAD/BRAIN WO CON, 09/21/2019, 13:31. [facility], MR, MR HEAD/BRAIN WO CON, 06/22/2019, 12:19. [facility], MR, MR BRAIN WITHOUT CONTRAST, 10/21/2018, 12:12. [facility], CT, CT HEAD WITHOUT CONTRAST, 10/21/2018, 9:18. [facility], MR, MR HEAD/BRAIN WO/W CON, 12/15/2018, 12:55. [facility], MR, MR BRAIN WITH/WITHOUT CONTRAST, 01/10/2019, 19:07. [facility], MR, MR BRAIN WITHOUT CONTRAST, 01/06/2019, 17:15. [facility], MR, MR BRAIN (IAC) WWO CON, 03/28/2019, 12:40. [facility], MR, MR HEAD/BRAIN WO/W CON, 12/12/2019, 11:22. [facility], MR, MR HEAD/BRAIN WO/W CON, 07/02/2020, 11:24. [facility], MR, MR HEAD/BRAIN WO/W CON, 10/22/2020, 10:58. FINDINGS: Image quality: Excellent. CSF spaces: Basal cisterns are patent. No extra-axial fluid collections. Ventricles are normal in size and shape. Brain: There is 2.5 x 4.2 cm area of encephalomalacia and gliosis in the right frontal lobe, demonstrate no visible contrast enhancement, most likely secondary to treated metastasis. In addition, there is a small area of cortical/subcortical T2 hyperintensity in the left frontal lobe, also demonstrating no visible post contrast enhancement. Compared to the last exam on 10/22/2020, there is no significant change. No mass effect or midline shift. No intracranial bleeds. There is mild cerebral volume loss for age. There is mild periventricular white matter chronic small vessel ischemic change. The brainstem appears normal. Diffusion-weighted images demonstrate no acute ischemic insults. No chronic ischemic insults. Normal intravascular flow voids are present. Skull and face: Right frontal craniotomy. Orbits appear normal. Sinuses: Sinuses and mastoids appear clear. IMPRESSION: 1. A 2.5 x 4.2 cm area of encephalomalacia and gliosis in the right frontal lobe demonstrating no visible postcontrast enhancement, consistent with post treatment changes. No mass effect or midline shift. No significant change from the last exam. 2. Stable small area of cortical/subcortical T2 hyperintensity in left frontal lobe. Dictated by: Aracelis Irwin M.D. on 12/17/2020 at 13:00 Approved by: Aracelis Irwin M.D. on 12/17/2020 at 13:15
--- NOTE | 2020-12-17 12:31 | DI.CT.S_ITS ---
PROCEDURE: CT CHEST WO CON INDICATIONS: lung cancer TECHNIQUE: Noncontrast 5 mm thick sections acquired from the pulmonary apices to the posterior costophrenic angles. 1 mm lung window, 5 mm thick coronal and sagittal and 7 mm axial MIP reformats were then acquired. For radiation dose reduction, the following was used: automated exposure control, adjustment of mA and/or kV according to patient size. COMPARISON: [facility], CR, XR CHEST 2V, 08/21/2019, 17:57. [facility], CT, CT CHEST ABDOMEN PELVIS WITH CONTRAST, 10/21/2018, 10:20. [facility], NM, NM PET CT FUSION SKULL 2 THIGH, 12/28/2018, 16:43. [facility], CT, CT CHEST ABD PEL W CON, 09/14/2019, 10:38. [facility], CT, CT CHEST WO CON, 11/14/2019, 12:25. [facility], CT, CT CHEST WO CON, 07/02/2020, 11:12. [facility], CT, CT ABDOMEN PELVIS W CON, 11/18/2020, 19:24. [facility], CT, CT CHEST WO CON, 10/22/2020, 10:45. FINDINGS: Image quality: Excellent. Lungs and pleura: There is a subpleural density in the right upper lobe, measuring 1.8 x 1.4 cm, unchanged in size and appearance. Multiple irregular densities are present bilaterally. [employer] nodules are listed as the following: Nodule 1: 1.9 cm; series 3, image 65; RUL; ground-glass; unchanged. Nodule 2: 1.1 cm; series 3, image 137; RLL; ground-glass; unchanged. Nodule 3: 2.0 cm; series 3, image 178; RML; solid; unchanged. Nodule 4: 0.5 cm; series 3, image 66; LLL; solid; unchanged. Nodule 5: 0.9 cm; series 3, image 125; LLL; part solid part ground-glass; unchanged. No pleural effusions or pneumothorax. Central and peripheral airways are patent and normal in caliber. Mediastinum: Heart size is normal. There is pericardial thickening. Moderate coronary artery calcification. No mediastinal adenopathy by size criteria. Thoracic aorta and central pulmonary arteries are normal in size. Esophagus is normal in caliber. Small hiatal hernia. Bones and chest wall: No suspicious bony lesions. No vertebral body compression fractures. No axillary or supraclavicular adenopathy by size criteria. Thyroid gland is normal. There is can occur mass tear. Abdomen: Visualized upper abdominal solid organs and bowel loops appear normal in the absence of contrast. IMPRESSION: 1. Stable subpleural density in the right upper lobe. 2. Stable multiple pulmonary nodules bilaterally. 3. Pericardial thickening. Dictated by: Aracelis Irwin M.D. on 12/17/2020 at 15:03 Approved by: Aracelis Irwin M.D. on 12/17/2020 at 17:48
== END ==
PROVIDERS: Family Provider Family Medicine; PCP Family Medicine; Referring Provider Internal Medicine Hematology & Oncology; Visit Provider Internal Medicine Hematology & Oncology
DX: C34.11 Malignant neoplasm of upper lobe, right bronchus or lung; C79.31 Secondary malignant neoplasm of brain; G93.89 Other specified disorders of brain; R91.8 Other nonspecific abnormal finding of lung field
CPT/HCPCS: 70553; 71250

== ENCOUNTER 2021-01-23 14:21 | Emergency (ER) | payer MEDICARE, MEDICAID, SELFPAY ==
[2021-01-23] VITALS (8 sets, daily range): BP systolic 103–124; BP diastolic 54–65; PULSE 115–124; RESP 8–26; TEMP 37–39.6; O2SAT 95–98
--- NOTE | 2021-01-23 14:45 | DI.RAD.S_ITS ---
PROCEDURE: XR CHEST 1V INDICATIONS: suspected sepsis TECHNIQUE: One view of the chest was acquired. COMPARISON: [facility], CR, XR CHEST 2V, 08/21/2019, 17:57. FINDINGS: Surgical changes and devices: Left-sided central venous catheter tip is in the region of SVC. Right chest wall Port-A-Cath tip is in the region of SVC. Lungs and pleura: Lungs are clear. No pleural effusions or pneumothorax. Mediastinum: Mediastinal contours appear normal. Heart size is normal. Bones and chest wall: No suspicious bony lesions. Overlying soft tissues appear unremarkable. IMPRESSION: No acute cardiopulmonary pathology. Dictated by: Jun Roe M.D. on 01/23/2021 at 15:20 Approved by: Jun Roe M.D. on 01/23/2021 at 15:20
[2021-01-23 14:57] LABS: PTT Partial Thromboplastin Tim 30 SECONDS (26.4-36.2)
--- NOTE | 2021-01-23 14:57 | ED.FEVER ---
HPI - Fever General Chief Complaint: Fever Stated Complaint: rigors, possible infection, coming over from ONC Time Seen by Provider: 01/23/21 14:35 Source: patient and family Mode of arrival: Wheelchair Limitations: no limitations History of Present Illness HPI Narrative: Patient is a 65-year-old male who is on hemodialysis currently being treated for stage IV lung cancer on Keytruda presenting from Oncology with rigors. He was immediately sent emergency department for further evaluation. He actually has no complaints except for being cold. Initially afebrile. states that he has been feeling weak the last day or so but no specific complaints. He denies any cough abdominal pain nausea or vomiting. He no longer makes urine. He actually had a fistula that ruptured on his left arm number of weeks ago he was sent to [facility] and then to a rehab facility states that he has only been home for about 1 week. That site appears well without infection. He has not missed any dialysis appointments and was dialyzed yesterday. Related Data Home Medications Medication Instructions Recorded Confirmed CALCIUM ACETATE (PHOSLO~) 667 mg PO QDAY #0 05/24/13 10/31/20 OMEPRAZOLE 40 mg PO BID #0 05/24/13 01/23/21 VITAMIN D (Vitamin D3) 4,000 unit PO DAILY #0 05/24/13 01/23/21 [DIALYVITE] 100 mg PO QDAY #0 05/24/13 10/31/20 [LEVOTHYROXINE] 150 mcg PO QDAY #0 05/24/13 01/23/21 olanzapine [Zyprexa] 5 mg PO QDAY #0 05/24/13 10/31/20 paroxetine HCl [Paxil] 20 mg PO QDAY #0 05/24/13 10/31/20 sevelamer carbonate [Renvela] 1,600 mg PO DAILY #0 05/24/13 10/31/20 simvastatin [Zocor] 20 mg DAILY #0 05/24/13 10/31/20 Incruse Ellipta 1 inh INHALATION DAILY 12/20/18 10/31/20 albuterol sulfate [ProAir HFA] 2 puff INHALATION Q4-6H 12/20/18 10/31/20 hydrocodone-acetaminophen 1 tab PO Q4-6H PRN 12/20/18 10/31/20 ketoconazole 1 applic TOPICAL BID 12/20/18 10/31/20 loratadine 10 mg PO DAILY 12/20/18 10/31/20 ondansetron 4 mg PO Q6-8H PRN 12/20/18 10/31/20 pioglitazone 45 mg PO DAILY 03/14/19 10/31/20 acetaminophen 650 mg PO Q4H PRN 01/23/21 01/23/21 aspirin 81 mg PO DAILY 01/23/21 01/23/21 atorvastatin 80 mg PO DAILY 01/23/21 01/23/21 brinzolamide-brimonidine 1 drp OPHTHALMIC (EYE) BID 01/23/21 01/23/21 [Simbrinza] docusate sodium 100 mg PO BID 01/23/21 01/23/21 insulin lispro [Humalog U-100 1 sliding scale dose SUBCUT 01/23/21 01/23/21 Insulin] USEASDIRECTD metoprolol tartrate 25 mg PO BID 01/23/21 01/23/21 pioglitazone 45 mg PO DAILY 01/23/21 01/23/21 travoprost 1 drp OPHTHALMIC (EYE) BEDTIME 01/23/21 01/23/21 Previous Rx's Medication Instructions Recorded albuterol sulfate 1.25 mg INHALATION Q4-6H PRN #75 ml 08/21/19 Allergies Allergy/AdvReac Type Severity Reaction Status Date / Time Penicillins Allergy Severe passed out Verified 02/22/19 15:06 codeine Allergy Intermediate hurt worse Verified 02/22/19 15:06 Review of Systems Review of Systems ROS Unobtainable: All systems reviewed & are unremarkable except as noted in HPI and below Constitutional Constitutional: Reports chills, Reports fatigue and Reports fever(s) Eyes Eyes: Denies change in vision, Denies eye discharge, Denies irritation and Denies loss of vision ENT Ears, Nose, Mouth, and Throat: Denies change in voice, Denies dizziness, Denies neck pain and Denies sore throat Cardiovascular Cardiovascular: Denies chest pain, Denies syncope, Denies irregular heart rhythm, Denies lightheadedness, Denies palpitations, Denies dyspnea, Denies dyspnea on exertion and Denies orthopnea Respiratory Respiratory: Denies cough, Denies dyspnea, Denies dyspnea on exertion and Denies wheezing Gastrointestinal Gastrointestinal: Denies abdominal pain, Denies change in bowel habits, Denies diarrhea, Denies nausea and Denies vomiting Musculoskeletal Musculoskeletal: Denies back pain and Denies neck pain Integumentary/Breasts Skin/Breast: Denies pruritus, Denies erythema, Denies rash and Denies wounds Neurologic Neurologic: Denies vertigo, Denies dizziness, Denies syncope and Denies loss of vision Endocrine Endocrine: Reports fatigue and Denies palpitations Allergic/Immunologic Allergic/Immunologic: Denies wheezing Patient History Medical History (Updated 01/23/21 @ 16:58 by Megan Gonzalez DO) Arthritis Back pain Bipolar 1 disorder Chest pain COPD (chronic obstructive pulmonary disease) Diabetes GERD (gastroesophageal reflux disease) History of renal dialysis HLD (hyperlipidemia) HTN (hypertension) Hypotension Lung cancer Poor balance Renal failure Weakness Surgical History AV (arteriovenous fistula) H/O umbilical hernia repair History of cholecystectomy Hx of brain surgery (~10/2018) Family History Father Hypertension Heart disease Diabetes mellitus Mother Cancer Social History marital status: household members: spouse and children occupational status: unemployed Smoking Status: Current every day smoker alcohol intake: never Smoking Status: Current every day smoker Substance Use Type: does not use Exam Initial Vital Signs Initial Vital Signs: Vital Signs Temperature 98.6 F 01/23/21 14:43 Pulse Rate 116 H 01/23/21 14:43 Respiratory Rate 20 01/23/21 14:43 Blood Pressure 118/64 01/23/21 14:43 Pulse Oximetry 96 01/23/21 14:43 GENERAL: Week chronically ill 65-year-old male and in no acute distress. HEENT: Head atraumatic,EOMI, pupils reactive, face symmetric, moist mucous membranes CARDIOVASCULAR: Regular rate and rhythm without murmurs, rubs or gallops. RESPIRATORY: Breath sounds equal bilaterally, no wheezes rales or rhonchi. ABDOMEN: Soft, nontender. Normoactive bowel sounds all 4 quadrants. No guarding or rebound. EXTREMITIES: Normal range of motion, no clubbing or edema. Neurovascularly intact NEUROLOGICAL: Alert and oriented x4.Normal gait and speech. Cranial nerves II through XII grossly intact. SKIN: Warm, dry, no laceration, no petechiae, no rashes or lesions. Fistula noted in left arm is non erythematous no gross drainage Steri-Strips in place Course Orders Ordered: ED Orders 01/23/21 14:41 Complete Blood Count AUTO DIFF Stat Comprehensive Metabolic Panel Stat Lactate (Lactic Acid) Stat Lipase Stat Partial Thromboplastin Time Stat Procalcitonin Stat Prothrombin Time INR Stat 01/23/21 14:45 XR chest 1V Stat EKG-12 Lead Stat RT Consult Eval and Treat Now 01/23/21 15:08 Blood Culture Stat 01/23/21 16:00 COVID19 -Nasal swab/Pre-Proc Stat 01/23/21 16:20 Respiratory Panel (Film Array) Stat Discontinued Medications Acetaminophen (Acetaminophen 325 Mg Tablet) 975 mg PO NOW ONE Stop: 01/23/21 15:44 Last Admin: 01/23/21 15:58 Dose: 975 mg Documented by: SAMIR Sodium Chloride (Normal Saline 0.9%) 1,000 mls @ 1,000 mls/hr IV BOLUS ONE Stop: 01/23/21 15:44 Last Admin: 01/23/21 15:11 Dose: Not Given Documented by: SAMIR Sodium Chloride (Normal Saline 0.9%) 500 mls @ 1,000 mls/hr IV BOLUS ONE Stop: 01/23/21 15:37 Last Infusion: 01/23/21 16:02 Dose: 0 mls/hr Documented by: Admin: 01/23/21 15:18 Dose: 1,000 mls/hr Documented by: SAMIR Cefepime HCl 2 gm/ Sodium (Chloride) 100 mls @ 200 mls/hr IV NOW ONE Stop: 01/23/21 15:11 Last Infusion: 01/23/21 16:16 Dose: 0 mls/hr Documented by: Admin: 01/23/21 15:40 Dose: 200 mls/hr Documented by: SAMIR Tetanus/Diphtheria Toxoids (Tetanus Diphtheria Toxoids 0.5 Ml Vial) 0.5 ml IM .ONCE ONE Stop: 01/23/21 15:22 Last Admin: 01/23/21 15:33 Dose: Not Given Documented by: BTONER Vital Signs Vital signs: Vital Signs - 8 hr 01/23/21 14:43 01/23/21 15:00 04/15/21 15:30 Temperature 98.6 F 102.8 F H Pulse Rate 116 H 115 H 115 H Respiratory Rate 26 H 24 17 Blood Pressure 118/64 107/59 L 120/61 Pulse Oximetry 95 98 98 01/23/21 15:58 01/23/21 16:00 01/23/21 16:30 Temperature 102.8 F H 103.2 F H Pulse Rate 120 H 124 H Respiratory Rate 19 22 Blood Pressure 124/65 104/57 L Pulse Oximetry 98 97 01/23/21 17:00 01/23/21 17:36 Temperature 103.2 F H Pulse Rate 122 H Respiratory Rate 8 L Blood Pressure 103/54 L Pulse Oximetry MDM - Fever Lab Data Attestation: I reviewed the patient's lab results. Result diagrams: 01/23/21 14:41 01/23/21 14:41 Labs: Lab Results 01/23/21 01/23/21 01/23/21 Range/Units 14:41 14:41 14:41 WBC 0.7 L* D (4.5-11.0) X10^3/uL RBC 3.17 L (4.5-5.9) X10^6/uL Hgb 9.9 L (13.5-17.5) g/dL Hct 30.1 L (41-53) % MCV 95.0 (80-100) fL MCH 31.2 (26-34) PG MCHC 32.8 (30-36) % RDW 19.3 H (11.6-14.8) % Plt Count 148 L (150-400) X10^3/uL Neut % (Auto) Not Reportable Lymph % (Auto) Not Reportable [place] % (Auto) Not Reportable Eos % (Auto) Not Reportable Baso % (Auto) Not Reportable Lymph # (Auto) Not Reportable [place] # (Auto) Not Reportable Baso # (Auto) Not Reportable Total Counted 25 Seg Neutrophils % 76.0 H (38-70) % Lymphocytes % (Manual) 16.0 L (25-45) % Monocytes % (Manual) 4.0 (2-11) % Eosinophils % (Manual) 4.0 (2-4) % Neutrophils # (Manual) 532 L (7132-1339) /uL Platelet Estimate Decreased on smear RBC Morphology See below Anisocytosis 1+ H Macrocytosis 1+ H PT 11.0 (10.1-12.7) SECONDS INR 1.0 (0.9-1.3) APTT 30 D (26.4-36.2) SECONDS Sodium 133 L (137-145) mmol/L Potassium 3.9 (3.4-5.1) mmol/L Chloride 95 L (98-107) mmol/L Carbon Dioxide 24 (22-32) mmol/L BUN 19 (9-20) mg/dL Creatinine 5.57 H (0.66-1.25) mg/dL Estimated GFR 10.3 L (>60) mL/min BUN/Creatinine Ratio 3.4 L (6-22) Glucose 142 H (80-110) mg/dL Lactate (0.7-2.1) mmol/L Calcium 9.4 (8.4-10.2) mg/dL Total Bilirubin 0.9 (0.2-1.3) mg/dL AST 23 (17-59) IU/L ALT 13 (<50) IU/L Alkaline Phosphatase 152 H (38-126) U/L Total Protein 6.4 (6.3-8.2) g/dL Albumin 3.9 (3.5-5.0) g/dL Globulin 2.5 (1.7-4.1) g/dL Albumin/Globulin Ratio 1.6 (1.0-2.8) Lipase 63 (23-300) U/L Procalcitonin 3.10 H (<0.5) ng/mL Chlamy pneumoniae PCR (Not Detect) Adenovirus (PCR) (Not Detect) B. pertussis DNA (PCR) (Not Detecte) B.parapertussis DNA PCR (Not Detecte) Coronavirus OC43 (PCR) (Not Detect) Coronavirus HKU1 (PCR) (Not Detect) Coronavirus 229E (PCR) (Not Detect) SARS-CoV-2 (PCR) (Negative) Coronavirus NL63 (PCR) (Not Detect) Human Metapneumovir PCR (Not Detect) Influenza Type A (PCR) (Not Detect) Influenza Type B (PCR) (Not Detect) M. pneumoniae (PCR) (Not Detect) Parainfluenza 1 (PCR) (Not Detect) Parainfluenza 2 (PCR) (Not Detect) Parainfluenza 3 (PCR) (Not Detect) Parainfluenza 4 (PCR) (Not Detect) RSV (PCR) (Not Detect) Entero/Rhino (PCR) (Not Detect) 01/23/21 01/23/21 01/23/21 Range/Units 14:41 16:00 16:20 WBC (4.5-11.0) X10^3/uL RBC (4.5-5.9) X10^6/uL Hgb (13.5-17.5) g/dL Hct (41-53) % MCV (80-100) fL MCH (26-34) PG MCHC (30-36) % RDW (11.6-14.8) % Plt Count (150-400) X10^3/uL Neut % (Auto) Lymph % (Auto) [place] % (Auto) Eos % (Auto) Baso % (Auto) Lymph # (Auto) [place] # (Auto) Baso # (Auto) Total Counted Seg Neutrophils % (38-70) % Lymphocytes % (Manual) (25-45) % Monocytes % (Manual) (2-11) % Eosinophils % (Manual) (2-4) % Neutrophils # (Manual) (0144-2027) /uL Platelet Estimate RBC Morphology Anisocytosis Macrocytosis PT (10.1-12.7) SECONDS INR (0.9-1.3) APTT (26.4-36.2) SECONDS Sodium (137-145) mmol/L Potassium (3.4-5.1) mmol/L Chloride (98-107) mmol/L Carbon Dioxide (22-32) mmol/L BUN (9-20) mg/dL Creatinine (0.66-1.25) mg/dL Estimated GFR (>60) mL/min BUN/Creatinine Ratio (6-22) Glucose (80-110) mg/dL Lactate 4.4 H* (0.7-2.1) mmol/L Calcium (8.4-10.2) mg/dL Total Bilirubin (0.2-1.3) mg/dL AST (17-59) IU/L ALT (<50) IU/L Alkaline Phosphatase (38-126) U/L Total Protein (6.3-8.2) g/dL Albumin (3.5-5.0) g/dL Globulin (1.7-4.1) g/dL Albumin/Globulin Ratio (1.0-2.8) Lipase (23-300) U/L Procalcitonin (<0.5) ng/mL Chlamy pneumoniae PCR Not detected (Not Detect) Adenovirus (PCR) Not detected (Not Detect) B. pertussis DNA (PCR) Not detected (Not Detecte) B.parapertussis DNA PCR Not detected (Not Detecte) Coronavirus OC43 (PCR) Not detected (Not Detect) Coronavirus HKU1 (PCR) Not detected (Not Detect) Coronavirus 229E (PCR) Not detected (Not Detect) SARS-CoV-2 (PCR) Negative Not detected (Negative) Coronavirus NL63 (PCR) Not detected (Not Detect) Human Metapneumovir PCR Not detected (Not Detect) Influenza Type A (PCR) Not detected (Not Detect) Influenza Type B (PCR) Not detected (Not Detect) M. pneumoniae (PCR) Not detected (Not Detect) Parainfluenza 1 (PCR) Not detected (Not Detect) Parainfluenza 2 (PCR) Not detected (Not Detect) Parainfluenza 3 (PCR) Not detected (Not Detect) Parainfluenza 4 (PCR) Not detected (Not Detect) RSV (PCR) Not detected (Not Detect) Entero/Rhino (PCR) Not detected (Not Detect) Imaging Data Chest x-ray: Radiologist's Impression: PROCEDURE: XR CHEST 1V INDICATIONS: suspected sepsis TECHNIQUE: One view of the chest was acquired. COMPARISON: [facility], , XR CHEST 2V, 08/21/2019, 17:57. FINDINGS: Surgical changes and devices: Left-sided central venous catheter tip is in the region of SVC. Right chest wall Port-A-Cath tip is in the region of SVC. Lungs and pleura: Lungs are clear. No pleural effusions or pneumothorax. Mediastinum: Mediastinal contours appear normal. Heart size is normal. Bones and chest wall: No suspicious bony lesions. Overlying soft tissues appear unremarkable. IMPRESSION: No acute cardiopulmonary pathology. Dictated by: Jun Roe M.D. on 01/23/2021 at 15:20 ECG Data Attestation: I personally reviewed and interpreted this ECG as follows: Prior ECG tracings: available for review Interpretation: Sinus tachycardia rate 116 p.r. interval 156 QRS 112 MDM Narrative Medical decision making narrative: Patient initially afebrile in the ED however he is quite cold and temperature is rising. Now febrile at 102. No actual source is identified he is obviously neutropenic with with WBCs of 0.7 and no quanitifable neutrophils. Started on Zosyn empirically. Patient is initially tachycardic but normal blood pressure. Lactate is elevated at 4.4. Patient is also unlikely to be clearing lactate due to renal failure. We do not have dialysis at this facility. The patient's vp cardiovascular service line is out of [facility] in [place]. [address] Pinon, hospitalist updated patient's symptoms test results and happily accepts patient Discharge Plan Departure Patient Disposition: [facility] Clinical Impression: Fever and neutropenia Prescriptions: No Action olanzapine [Zyprexa] 5 MG tablet 5 mg PO QDAY Qty: 0 RF: 0 paroxetine HCl [Paxil] 20 MG tablet 20 mg PO QDAY Qty: 0 RF: 0 simvastatin [Zocor] 20 MG tablet 20 mg DAILY Qty: 0 RF: 0 sevelamer carbonate [Renvela] 800 MG tablet 1,600 mg PO DAILY Qty: 0 RF: 0 CALCIUM ACETATE (PHOSLO~) 667 mg PO QDAY Qty: 0 RF: 0 OMEPRAZOLE 40 mg PO BID Qty: 0 RF: 0 VITAMIN D (Vitamin D3) 4,000 unit PO DAILY Qty: 0 RF: 0 [DIALYVITE] 100 mg PO QDAY Qty: 0 RF: 0 [LEVOTHYROXINE] 150 mcg PO QDAY Qty: 0 RF: 0 hydrocodone-acetaminophen 5-325 mg Tablet 1 tab PO Q4-6H PRN (Reason: Pain (Scale Score 1-3)) RF: 0 ketoconazole 2 % Cream 1 applic TOPICAL BID RF: 0 Incruse Ellipta 62.5 mcg/actuation Blister With Device 1 inh INHALATION DAILY RF: 0 albuterol sulfate [ProAir HFA] 90 mcg/actuation Hfa Aerosol Inhaler 2 puff INHALATION Q4-6H RF: 0 ondansetron 4 mg Tablet,Disintegrating 4 mg PO Q6-8H PRN (Reason: Nausea) RF: 0 loratadine 10 mg Capsule 10 mg PO DAILY RF: 0 pioglitazone 30 mg Tablet 45 mg PO DAILY RF: 0 aspirin 81 mg Tablet 81 mg PO DAILY RF: 0 acetaminophen 325 mg Tablet 650 mg PO Q4H PRN (Reason: Pain, Moderate) RF: 0 atorvastatin 80 mg Tablet 80 mg PO DAILY RF: 0 Humalog U-100 Insulin 100 unit/mL Cartridge 1 sliding scale dose SUBCUT USEASDIRECTD RF: 0 metoprolol tartrate 25 mg Tablet 25 mg PO BID RF: 0 Simbrinza 1-0.2 % Drops,Suspension 1 drp OPHTHALMIC (EYE) BID RF: 0 pioglitazone 45 mg Tablet 45 mg PO DAILY RF: 0 docusate sodium 100 mg Capsule 100 mg PO BID RF: 0 travoprost 0.004 % Drops 1 drp OPHTHALMIC (EYE) BEDTIME RF: 0 albuterol sulfate 1.25 mg/3 mL solution for nebulization 1.25 mg INHALATION Q4-6H PRN (Reason: bronchospasm) Qty: 75 RF: 0 Referrals: Nisha Young MD [Primary Care Provider] -
[2021-01-23 14:58] LABS: Hematocrit 30.1 % (41-53); Hemoglobin 9.9 g/dL (13.5-17.5); Mean Corpuscular HGB Conc 32.8 % (30-36); Mean Corpuscular Hemoglobin 31.2 PG (26-34); Platelet Count 148 X10^3/uL (150-400); Red Blood Cell Count 3.17 X10^6/uL (4.5-5.9); Red Cell Distribution Width 19.3 % (11.6-14.8)
[2021-01-23 15:00] LABS: White Blood Cell Count 0.7 X10^3/uL (4.5-11.0)
[2021-01-23 15:01] LABS: Add Manual Diff / Slide Review YES; Alanine Aminotransferase 13 IU/L (<50); Albumin 3.9 g/dL (3.5-5.0); Albumin Globulin Ratio 1.6 (1.0-2.8); Alkaline Phosphatase 152 U/L (38-126); Aspartate Aminotransferase 23 IU/L (17-59); BUN Creatinine Ratio 3.4 (6-22); Bilirubin Total 0.9 mg/dL (0.2-1.3); Blood Urea Nitrogen 19 mg/dL (9-20); Calcium 9.4 mg/dL (8.4-10.2); Carbon Dioxide 24 mmol/L (22-32); Chloride 95 mmol/L (98-107); Estimated Glomerular Filt Rate 10.3 mL/min (>60); Globulin 2.5 g/dL (1.7-4.1); Glucose 142 mg/dL (80-110); HEMOLYSIS < 15 (0-50); Lipase 63 U/L (23-300); Potassium 3.9 mmol/L (3.4-5.1); Sodium 133 mmol/L (137-145); Total Protein 6.4 g/dL (6.3-8.2)
[2021-01-23 15:15] LABS: Lactate (Lactic Acid) 4.4 mmol/L (0.7-2.1)
[2021-01-23] MEDS: SODIUM CHLORIDE 0.9% 500 ML 1000 ML IV (15:18)
[2021-01-23 15:39] LABS: Neutrophils Absolute Manual 532 /uL (3000-5900); Total Cells Counted 25
[2021-01-23] MEDS: CEFEPIME 2 GM in SODIUM CHLORIDE 0.9% 100 ML 200 ML IV (15:40)
[2021-01-23 15:45] LABS: Anisocytosis 1+; Macrocytosis 1+; Platelet Estimate Decreased on smear
[2021-01-23] MEDS: ACETAMINOPHEN 325 MG TABLET 975 MG PO (15:58)
[2021-01-23 16:43] LABS: COVID19 -Nasal RAPID Negative (Negative)
[2021-01-23 16:48] LABS: Reflexed Lactate in 2 Hours Y
[2021-01-23 17:17] LABS: Adenovirus Not Detected (Not Detect); B. parapertussis Not Detected (Not Detecte); Bordetella pertussis Not Detected (Not Detecte); Chlamydophila pneumoniae Not Detected (Not Detect); Coronavirus 229E Not Detected (Not Detect); Coronavirus HKU1 Not Detected (Not Detect); Coronavirus NL 63 Not Detected (Not Detect); Coronavirus OC43 Not Detected (Not Detect); Human Metapneumovirus Not Detected (Not Detect); Human Rhinovirus/Enterovirus Not Detected (Not Detect); Influenza A Not Detected (Not Detect); Influenza B Not Detected (Not Detect); Mycoplasma pneumoniae Not Detected (Not Detect); Parainfluenza Virus 1 Not Detected (Not Detect); Parainfluenza Virus 2 Not Detected (Not Detect); Parainfluenza Virus 3 Not Detected (Not Detect); Parainfluenza Virus 4 Not Detected (Not Detect); Respiratory Syncytial Virus Not Detected (Not Detect); SARS- CoV-2 Not Detected (Not Detecte)
[2021-01-24 02:29] LABS: Enterococcus species Not Detected (Not Detect); Listeria monocytogenes Not Detected (Not Detect); Staphylococcus species Not Detected (Not Detect)
[2021-01-24 02:30] LABS: Acinetobacter baumannii Not Detected (Not Detect); Candida albicans Not Detected (Not Detect); Candida glabrata Not Detected (Not Detect); Candida krusei Not Detected (Not Detect); Candida parapsilosis Not Detected (Not Detect); Candida tropicalis Not Detected (Not Detect); E. coli Not Detected (Not Detect); Enterobacter cloacae complex Not Detected (Not Detect); Enterobacteriaceae species Detected (Not Detect); Haemophilus influenzae Not Detected (Not Detect); KPC (carbapenem-resist gene) Not Detected (Not Detect); Neisseria meningitidis Not Detected (Not Detect); Proteus species Not Detected (Not Detect); Pseudomonas aeruginosa Not Detected (Not Detect); Serratia marcescens Detected (Not Detect); Streptococcus agalactiae (Gr B Not Detected (Not Detect); Streptococcus pneumonia Not Detected (Not Detect); Streptococcus pyogenes (Gr A) Not Detected (Not Detect); Streptococcus species Not Detected (Not Detect)
== END 2021-01-23 17:55 | disposition short-term general hospital (02) ==
PROVIDERS: Emergency Provider Emergency Medicine; Family Provider Family Medicine; PCP Family Medicine
DX: D70.9 Neutropenia, unspecified (principal); R50.9 Fever, unspecified; Z20.822 Contact with and (suspected) exposure to COVID-19; C34.11 Malignant neoplasm of upper lobe, right bronchus or lung; C79.31 Secondary malignant neoplasm of brain; E11.22 Type 2 diabetes mellitus with diabetic chronic kidney disease; I12.0 Hypertensive chronic kidney disease with stage 5 chronic kidney disease or end stage renal disease; N18.6 End stage renal disease; E78.5 Hyperlipidemia, unspecified; E03.9 Hypothyroidism, unspecified; J44.9 Chronic obstructive pulmonary disease, unspecified; Z99.2 Dependence on renal dialysis; Z95.828 Presence of other vascular implants and grafts; Z79.84 Long term (current) use of oral hypoglycemic drugs
CPT/HCPCS: 36415; 36591; 71045; 80053; 83605; 83690; 84145; 84443; 85007; 85025; 85610; 85730; 87040; 87150; 87186; 87205; 87633; 87635; 93005; 93010; 96365; 99214; 99285; 99291; 99292; C9803; J0692

== ENCOUNTER → 2021-03-04 11:39 | Outpatient (CLI) | payer MEDICARE, MEDICAID, SELFPAY ==
--- NOTE | 2021-03-04 11:41 | DI.MG.S_ITS ---
MALE BILATERAL DIGITAL DIAGNOSTIC MAMMOGRAM 3D/2D: 03/04/2021 CLINICAL: Right breast pain. Comparison is made to exams dated: 09/21/2008 mammogram and 08/13/2004 mammogram - [facility]. There is gynecomastia in the right breast in the sub-areolar depth that correlates with clinical concern, reported palpable abnormality, and reported tenderness. There also is gynecomastia in the left breast in the sub-areolar depth. No other significant masses, calcifications, or other findings are seen in either breast. IMPRESSION: INCOMPLETE: NEEDS ADDITIONAL IMAGING EVALUATION Bilateral gynecomastia. Patient also reports more focal thickening immediately behind the right nipple and right nipple abnormalities. An ultrasound is recommended for further evaluation and is scheduled to immediately follow this examination. This exam was interpreted at Station ID: [id number]. NOTE: For mammograms, a report in lay terms will be sent to the patient. Approximately 15% of breast malignancies will not be visualized mammographically. In the management of a palpable breast mass, a negative mammogram must not discourage biopsy of a clinically suspicious lesion. Electronically Signed By: Martin Adorno M.D. aty/:03/04/2021 14:02:11 ACR BI-RADS Category 0: Incomplete [id number]
--- NOTE | 2021-03-04 11:41 | DI.US.S_ITS ---
ULTRASOUND OF RIGHT BREAST: 03/04/2021 CLINICAL: Mastodynia; right retroareolar thickening. Comparison is made to exams dated: 03/04/2021 mammogram, 09/21/2008 mammogram, and 08/13/2004 mammogram - [facility]. Color flow and real-time ultrasound of the right breast were performed. Chairez scale images of the real-time examination were reviewed. There is gynecomastia in the right breast that correlates with mammography, clinical concern, and reported pain. No focal nipple abnormalities. No skin or nipple abnormalities on today's clinical exam by Dr. Mitchell. IMPRESSION: BENIGN There is no sonographic evidence of malignancy. Right breast gynecomastia. Recommend clinical follow up for persistent or worsening symptoms, or development of any clinically suspicious findings. Findings and recommendations were discussed with the patient by Dr. Mitchell during today's examination. This exam was interpreted at Station ID: [id number]. Electronically Signed By: Martin Adorno M.D. aty/:03/04/2021 14:04:35 letter sent: Clinical Evaluation Ultrasound BI-RADS: 2 Benign
== END ==
PROVIDERS: Family Provider Family Medicine; PCP Family Medicine; Referring Provider Family Medicine; Visit Provider Family Medicine
DX: R92.8 Other abnormal and inconclusive findings on diagnostic imaging of breast (principal); N64.4 Mastodynia; N62 Hypertrophy of breast
CPT/HCPCS: 76642; 77066; G0279

== ENCOUNTER → 2021-04-22 11:02 | Outpatient (CLI) | payer MEDICARE, MEDICAID, SELFPAY ==
--- NOTE | 2021-04-22 11:03 | DI.CT.S_ITS ---
PROCEDURE: CT CHEST WO CON INDICATIONS: lung cancer TECHNIQUE: Noncontrast 5 mm thick sections acquired from the pulmonary apices to the posterior costophrenic angles. 1 mm lung window, 5 mm thick coronal and sagittal and 7 mm axial MIP reformats were then acquired. For radiation dose reduction, the following was used: automated exposure control, adjustment of mA and/or kV according to patient size. COMPARISON: [facility], CT, CT CHEST WO [facility], 12/17/2020, 11:55. FINDINGS: Image quality: Excellent. Lungs and pleura: Irregular right upper lobe ground-glass nodule measuring approximately 2 cm, stable. Wedge-shaped, spiculated posterolateral right upper lobe subpleural opacity, stable. Subtle ground-glass nodule superior segment right lower lobe, stable. Irregular central solid nodule in the right middle lobe, stable. Mild bilateral lower lobe peribronchial thickening and occasional airway occlusions in the left lower lobe. Subpleural ground-glass nodule superior segment left lower lobe, stable. Central solid nodule in the left upper lobe measuring 6 mm, stable. Tiny subpleural left upper lobe nodules, the largest posteriorly measuring 5 mm, stable (3/59). No new lung masses or pleural effusions. Mediastinum: Heart size is normal. Heavy coronary artery calcification. Chronic pericardial thickening. No pericardial effusion. No mediastinal adenopathy by size criteria. Thoracic aorta and central pulmonary arteries are normal in size. Esophagus is normal in caliber. No hiatal hernia. Bones and chest wall: Partially imaged anterior cervical spine fusion. No suspicious bony lesions. Stable sclerotic change and disc height loss at T7-8. Chronic superior endplate depression of T3 and T4. No acute vertebral body compression fractures. Numerous, but not enlarged axillary lymph nodes. Bilateral gynecomastia. Left IJ dialysis catheter. Thyroid gland is unremarkable . Abdomen: Visualized upper abdominal solid organs and bowel loops appear normal in the absence of contrast. IMPRESSION: 1. Several bilateral lung masses and nodules, stable. 2. No new lung nodules, masses, or effusion. 3. Chronic pericardial thickening and heavy coronary artery calcification. Dictated by: Romy Pihpps M.D. on 04/22/2021 at 11:40 Approved by: Romy Phipps M.D. on 04/22/2021 at 11:55
--- NOTE | 2021-04-22 11:03 | DI.MRI.S_ITS ---
PROCEDURE: MR HEAD/BRAIN WO/W CON INDICATIONS: lung CA with brain mets TECHNIQUE: Noncontrast axial T1 spin echo, axial T2 fast spin echo, sagittal and axial FLAIR, coronal T2 fast spin echo, axial gradient echo, axial diffusion and ADC through the brain. After the administration of contrast, axial and coronal 3D VIBE or T1 spin echo with fat saturation through the brain. COMPARISON: [facility], MR, MR BRAIN (IAC) WWO CON, 03/28/2019, 12:40. [facility], MR, MR HEAD/BRAIN WO CON, 09/21/2019, 13:31. [facility], MR, MR HEAD/BRAIN WO/W CON, 12/17/2020, 12:20. [facility], MR, MR HEAD/BRAIN WO/W CON, 10/22/2020, 10:58. [facility], MR, MR HEAD/BRAIN WO/W CON, 07/02/2020, 11:24. [facility], MR, MR HEAD/BRAIN WO/W CON, 12/12/2019, 11:22. FINDINGS: Image quality: Excellent. CSF Spaces: Basal cisterns are patent. No extra-axial fluid collections. Ventricles are normal in size and shape. Brain: Right frontal surgical resection cavity with surrounding gliosis is stable compared to prior examinations. No midline shift. No intracranial bleeds or masses. No abnormal intracranial enhancement. New area of increased T2 signal is noted in the left parietal lobe which does not have associated postcontrast enhancement or restricted diffusion. Curvilinear GRE hypointensity is noted centrally within the T2 signal abnormality in the left parietal lobe compatible with chronic hemorrhage. Small focus of increased T2 signal in the left frontal lobe is stable compared to December 17, 2020. The brainstem appears normal. Diffusion-weighted images demonstrate no acute ischemic insults. No chronic ischemic insults. Normal intravascular flow voids are present. Dural sinuses demonstrate normal postcontrast enhancement. Skull and face: Calvarial marrow is normal in signal. Orbits appear normal. Sinuses: Sinuses and mastoids appear clear. IMPRESSION: 1. New area of abnormal increased T2 signal involving the left parietal lobe. Lesion has imaging characteristics most concerning for late subacute/early chronic infarct. Recommend short-term follow-up MRI of the brain with and without contrast in 1-3 months . 2. Otherwise stable examination compared to December 17, 2020. Dictated by: Batsheva Somers MD, PhD on 04/22/2021 at 12:53 Approved by: Batsheva Somers MD, PhD on 04/22/2021 at 13:03
== END ==
PROVIDERS: Family Provider Family Medicine; PCP Family Medicine; Referring Provider Family Medicine; Visit Provider Internal Medicine Hematology & Oncology
DX: C79.31 Secondary malignant neoplasm of brain (principal); C34.90 Malignant neoplasm of unspecified part of unspecified bronchus or lung; R91.8 Other nonspecific abnormal finding of lung field; I25.10 Atherosclerotic heart disease of native coronary artery without angina pectoris; N62 Hypertrophy of breast; Z98.1 Arthrodesis status
CPT/HCPCS: 70553; 71250

== ENCOUNTER → 2021-07-01 11:06 | Outpatient (CLI) | payer MEDICARE, MEDICAID, SELFPAY ==
--- NOTE | 2021-07-01 11:08 | DI.MRI.S_ITS ---
PROCEDURE: MR HEAD/BRAIN WO/W CON INDICATIONS: 66-year-old male with history of intracranial metastatic lung cancer status post right frontal resection October 2018 TECHNIQUE: Noncontrast axial T1 spin echo, axial T2 fast spin echo, sagittal and axial FLAIR, coronal T2 fast spin echo, axial gradient echo, axial diffusion and ADC through the brain. After the administration of contrast, axial and coronal T1 spin echo with fat saturation through the brain. COMPARISON: Outside [facility], MR, MR BRAIN WITH/WITHOUT CONTRAST, 10/22/2018, 20:00. Outside [facility], CT, CT HEAD WITHOUT CONTRAST, 10/25/2018, 17:51. [facility], MR, MR HEAD/BRAIN WO/W CON, 04/22/2021, 11:39. FINDINGS: Cerebrum, Cerebellum and Brainstem: Right mid superior frontal gyrus focal encephalomalacia and gliosis consistent with resection cavity remains stable from the prior exam. Additional transcortical hyperintensity involving the left inferior frontal gyrus pars opercularis and left parietal postcentral gyrus/supramarginal gyrus also remains stable from the prior with laminar cortical old blood products. No enhancement or significant volume loss in the interval. Restricted diffusion has resolved. Otherwise, there is mild underlying cerebral and cerebellar volume loss as well as mild multifocal hyperintensities in the deep and subcortical white matter present. Basal cisterns and foramen magnum contain appropriate anatomy and vascular flow voids. Ventricles: Appropriate in size and position. No hydrocephalus. Skull Base: The bony sella, pituitary gland and infundibulum unremarkable. Clivus and craniovertebral relationships are appropriate. Visualized portions of the seventh and eighth cranial nerve complexes and internal auditory canals are within normal limits. Scalp and Calvarium: Right frontal craniotomy secured by 3 round plates again noted. Remainder of the calvarium unremarkable Paranasal Sinuses: Visualized portions of the paranasal sinuses are clear. Mastoids: Unremarkable as visualized. No mastoid effusion present. Orbits: The orbits, globes and ocular muscles are unremarkable. IMPRESSION: 1. 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 Right frontal resection cavity and surrounding gliosis also is stable from the prior. No evidence of recurrence or residual metastatic disease. 3. Mild underlying atrophy and chronic ischemic change. Approved by: Saurabh Holder M.D. on 07/01/2021 at 14:19
== END ==
PROVIDERS: Family Provider Family Medicine; PCP Family Medicine; Referring Provider Internal Medicine Hematology & Oncology; Visit Provider Internal Medicine Hematology & Oncology
DX: C34.90 Malignant neoplasm of unspecified part of unspecified bronchus or lung (principal); C79.31 Secondary malignant neoplasm of brain; Z86.73 Personal history of transient ischemic attack (TIA), and cerebral infarction without residual deficits; G31.9 Degenerative disease of nervous system, unspecified
CPT/HCPCS: 70553; A9579

== ENCOUNTER 2021-07-22 06:30 | Day surgery (SDC) | payer MEDICARE, MEDICAID, SELFPAY ==
[2021-07-22] MEDS: LACTATED RINGERS 1,000 ML 100 ML IV (07:18)
[2021-07-22 07:19] VITALS: BP 130/74; PULSE 75; RESP 16; TEMP 36.9; O2SAT 100; BMI 26.6
--- NOTE | 2021-07-22 07:28 | PM.HP.1 ---
History of Present Illness History of Present Illness Date Patient Seen: 07/22/21 Time Patient Seen: 07:28 Chief complaint: SDC Narrative: 66-year-old man referred for Port-A-Cath placement secondary to lung cancer metastatic to brain. He had a previous port which malfunctioned and was removed. According to Oncology he has stable but metastatic disease. Patient History Medical History Anemia Anxiety Arthritis AV fistula Back pain Bipolar 1 disorder Chest pain COPD (chronic obstructive pulmonary disease) Depression Diabetes Easy bruisability GERD (gastroesophageal reflux disease) History of renal dialysis HLD (hyperlipidemia) HTN (hypertension) Hypotension Lung cancer Parietal lobe infarction Poor balance Renal failure Stroke Weakness Surgical History AV (arteriovenous fistula) H/O umbilical hernia repair History of back surgery History of carpal tunnel surgery History of cholecystectomy History of removal of Port-a-Cath History of vasectomy Hx of brain surgery (~10/2018) Hx of neck surgery Hx of tonsillectomy Family & Social History Family History Father Hypertension Heart disease Diabetes mellitus Mother Cancer Social History: household members spouse,children Tobacco & Substance use: Tobacco type cigarettes Smoking Status Current every day smoker alcohol intake never Substance Use Type does not use Meds Home Medications and Allergies Home Medications Medication Instructions Recorded Confirmed Type CALCIUM ACETATE (PHOSLO~) 667 mg PO QDAY #0 05/24/13 07/22/21 History OMEPRAZOLE 40 mg PO BID #0 05/24/13 07/22/21 History VITAMIN D (Vitamin D3) 4,000 unit PO DAILY #0 05/24/13 07/16/21 History [DIALYVITE] 100 mg PO QDAY #0 05/24/13 05/08/21 History olanzapine 5 mg tablet (Zyprexa) 5 mg PO QDAY #0 05/24/13 07/22/21 History paroxetine HCl 20 mg tablet (Paxil) 20 mg PO QDAY #0 05/24/13 07/22/21 History sevelamer carbonate 800 mg tablet 800 mg PO DAILY #0 05/24/13 07/22/21 History (Renvela) albuterol sulfate 90 mcg/actuation 2 puff INHALATION Q4-6H 03/12/19 10/12/21 History aerosol inhaler (ProAir HFA) ketoconazole 2 % topical cream 1 applic TOPICAL BID 12/20/18 07/22/21 History loratadine 10 mg capsule 10 mg PO DAILY 12/20/18 07/22/21 History umeclidinium 62.5 mcg/actuation 1 inh INHALATION DAILY 12/20/18 07/22/21 History blister powder for inhalation (Incruse Ellipta) albuterol sulfate 1.25 mg/3 mL 1.25 mg INHALATION Q4-6H PRN #75 ml 08/21/19 07/22/21 Rx solution for nebulization acetaminophen 325 mg tablet 650 mg PO Q4H PRN 01/23/21 07/22/21 History aspirin 81 mg tablet 81 mg PO DAILY 01/23/21 07/22/21 History atorvastatin 80 mg tablet 40 mg PO DAILY 01/23/21 07/22/21 History brinzolamide 1 %-brimonidine 0.2 % 1 drp OPHTHALMIC (EYE) BID 01/23/21 07/22/21 History eye drops,suspension (Simbrinza) docusate sodium 100 mg capsule 100 mg PO BID 01/23/21 07/22/21 History metoprolol tartrate 25 mg tablet 12.5 mg PO PRN PRN 01/23/21 07/22/21 History pioglitazone 45 mg tablet 45 mg PO DAILY 01/23/21 07/22/21 History travoprost 0.004 % eye drops 1 drp OPHTHALMIC (EYE) BEDTIME 01/23/21 07/22/21 History cinnamon bark-chromium 1 cap PO DAILY 05/08/21 07/22/21 History picolinate-ALA 500 mg-100 mcg-150 mg capsule gabapentin 100 mg tablet 100 mg PO BEDTIME 05/08/21 07/22/21 History vitamin B complex-vitamin C-folic 1 tab DAILY 05/08/21 07/22/21 History acid 0.8 mg tablet (Veena-Michael) levothyroxine 175 mcg tablet 175 mcg PO DAILY 07/10/21 07/22/21 History Allergies Allergy/AdvReac Type Severity Reaction Status Date / Time Penicillins Allergy Severe passed out Verified 07/22/21 07:05 codeine AdvReac Intermediate Vomiting Verified 07/22/21 07:05 morphine AdvReac Vomiting Verified 07/22/21 07:05 Exam Vital Signs (past 8 hours): - 07/22/21 07:19 Temperature 98.4 F Pulse Rate 75 Respiratory Rate 16 Blood Pressure 130/74 Pulse Oximetry 100 Oxygen Delivery Method Room Air Narrative Exam Narrative: General elderly man alert oriented no acute distress Chest nonlabored respirations Abdomen soft nontender nondistended Extremities warm well perfused. Assessment & Plan Assessment and plan (1) Lung cancer metastatic to brain: Status: Acute Assessment & Plan narrative: 66-year-old man with lung cancer metastatic to brain requires Port-A-Cath placement for chemotherapy. Technical details of the procedure were discussed with the patient and his . Procedural risks including bleeding, infection, device malfunction, pneumothorax were discussed. Their questions have been answered and they are in agreement with this plan. Time Spent With Patient Critical Care time: I spent a total of [] minutes of critical care time on this patient's care today; this time is exclusive of procedural time.
--- NOTE | 2021-07-22 08:16 | SUR.OPER ---
Supine on padded OR bed, head on pillow, arms padded and tucked at sides, legs uncrossed, safety belt at thigh, tape over blanket over lower legs .
[2021-07-22 08:28] LABS: HEMOLYSIS 23 (0-50); Potassium 3.9 mmol/L (3.4-5.1)
[2021-07-22 08:44] LABS: COVID19 -Nasal RAPID Negative (Negative)
--- NOTE | 2021-07-22 09:00 | DI.RAD.S_ITS ---
PROCEDURE: XR CHEST 1V INDICATIONS: PORT A CATH INSERTION TECHNIQUE: One view of the chest was acquired. COMPARISON: [facility], CR, XR CHEST 1V, 01/23/2021, 15:07. FINDINGS: Surgical changes and devices: A right CT injectable port a catheter is seen with tip projecting over the brachiocephalic SVC junction. Anterior cervical fixation hardware is partially imaged. Lungs and pleura: No consolidation,, pleural effusions or pneumothorax. Redemonstrated 1.3 cm nodular density in the right upper lung zone, better characterized on the prior chest CT. Mediastinum: Mediastinal contours appear normal. Heart size is normal. Bones and chest wall: No suspicious bony lesions. Overlying soft tissues appear unremarkable. IMPRESSION: No acute cardiopulmonary abnormality. Dictated by: Jayant Solomon M.D. on 07/22/2021 at 10:05 Approved by: Jayant Solomon M.D. on 07/22/2021 at 10:08
[2021-07-22] MEDS: CLINDAMYCIN 900 MG/50 ML PIGGYBACK 50 MG IV (09:01)
[2021-07-22] MEDS: BUPIVACAINE 0.25% (PF) VIAL 30 ML INJ (09:23)
[2021-07-22] MEDS: HEPARIN 5,000 UNIT, SODIUM CHLORIDE 0.9% 50 ML IV (09:25)
[2021-07-22 09:42] VITALS: BP 75/44; PULSE 68; RESP 12; TEMP 36.2; O2SAT 100
[2021-07-22 09:46] VITALS: BP 87/49; PULSE 67; RESP 14; O2SAT 100
--- NOTE | 2021-07-22 09:49 | PM.OP.1 ---
Operative Date/Time/Diagnoses Date of procedure: 07/22/21 Time of procedure: 09:49 Pre-op diagnosis: lung cancer Post-op diagnosis: same Procedure & Clinicians Procedure: port a cath placement Same procedure as scheduled: Yes Indications: lung cancer Surgeon: Carlos Flores Click Yes if Unassisted: Yes Anesthesia Type: General Operative Notes Findings: tip of the catheter within the SVC Specimen(s): none sent Estimated Blood Loss (mL): 10 Procedure in detail: Patient was brought to the operating room placed supine on table. Bilateral lower extremity compressive devices were applied. General anesthesia was induced and he was intubated with an LMA. He was then prepped and draped in usual sterile fashion. Time-out was performed ensure the correct patient procedure necessary equipment within the operating room. He received 2 g of Ancef prior to incision. Under ultrasound guidance the right internal jugular vein was accessed under direct visualization. The guidewire was then threaded through the needle. Its placement was then confirmed using fluoroscopy. The dilator was then placed over the guidewire. The catheter was then inserted through the sheath. Placement was again confirmed with fluoroscopy. A subcutaneous pocket was made in the right chest wall. The tunneler device was used to move the catheter from the neck to the chest pocket. The port was attached after it was primed with heparined saline. The port was tested to ensure that it flushed easily and had good blood return. The port was then secured to the underlying fascia using interupted 0 Prolene suture. Hemostasis was achieved. The wound was irrigated with sterile saline. The subcutaneous tissues were reapproximated with the 3 0 Vicryl and then skin closed with 4-0 Monocryl. The skin was sealed with Dermabond. Patient tolerated procedure well. The sponge and instrument count at the end operation was correct. Patient emerged from general anesthesia was extubated and taken to the postoperative care unit in stable condition Complications: none Post-operative Condition: stable Disposition: same day surgery Plan for aftercare: chest x-ray pending
[2021-07-22 09:51] VITALS: BP 96/54; PULSE 74; RESP 14; O2SAT 100
[2021-07-22 10:01] VITALS: BP 103/59; PULSE 73; RESP 14; TEMP 36.2; O2SAT 99
[2021-07-22 10:07] VITALS: BP 102/66; PULSE 74; RESP 14; TEMP 36.2; O2SAT 99
--- NOTE | 2021-07-22 10:14 | SUR.PHASEII ---
handoff report given to Ania MORALES
--- NOTE | 2021-07-22 11:01 | SUR.PHASEII ---
1030; Pt VSS and cond stable discharge instructions were given to and pt they verbalized understanding of discharge instructions. Packet with Power port identification and information on power port given to pt and . All belongings given to pt and walker
== END 2021-07-22 10:30 | disposition home or self-care (01) ==
PROVIDERS: Anesthesiology; Family Provider Family Medicine; PCP Family Medicine; Referring Provider Surgery; Visit Provider Surgery
PROC: (CPT 36561; principal; 2021-07-22 07:45)
DX: C34.90 Malignant neoplasm of unspecified part of unspecified bronchus or lung (principal); C79.31 Secondary malignant neoplasm of brain; F17.210 Nicotine dependence, cigarettes, uncomplicated
CPT/HCPCS: 36561; 36415; 71045; 76000; 82962; 84132; 87635; C1788; J1644; J2704; J3010

== ENCOUNTER → 2021-11-11 13:13 | Outpatient (CLI) | payer MEDICARE, MEDICAID, SELFPAY ==
--- NOTE | 2021-11-11 13:18 | DI.RAD.S_ITS ---
PROCEDURE: XR CHEST 2V INDICATIONS: R/O PNEUMONIA TECHNIQUE: 2 views of the chest were acquired. COMPARISON: [facility], CR, XR CHEST 1V, 07/22/2021, 9:59. FINDINGS: Surgical changes and devices: Right chest wall Port-A-Cath tip is projecting in the region of upper SVC. Fusion hardware in lower cervical spine is seen. Lungs and pleura: Mildly increased bronchovascular markings in bilateral hilar region are seen with mild bronchial wall thickening concerning for reactive airway disease. No definite focal infiltrate. Previously described 1.3 cm nodular density in right upper lung zone is less well seen on the current study however is grossly unchanged in size. No pleural effusions or pneumothorax. Mediastinum: Mediastinal contours are normal. Heart size is normal. Bones and chest wall: No suspicious bony abnormalities. Soft tissues appear unremarkable. IMPRESSION: Finding is suggestive of reactive airway disease such as bronchitis or asthma. No definite focal infiltrate. No pleural effusion or pneumothorax. Dictated by: Jun Roe M.D. on 11/11/2021 at 14:55 Approved by: Jun Roe M.D. on 11/11/2021 at 15:03
== END ==
PROVIDERS: Family Provider Family Medicine; PCP Family Medicine; Referring Provider Family Medicine; Visit Provider Family Medicine
DX: J44.9 Chronic obstructive pulmonary disease, unspecified (principal)
CPT/HCPCS: 71046

== ENCOUNTER → 2021-11-27 12:03 | Outpatient (CLI) | payer MEDICARE, MEDICAID, SELFPAY ==
--- NOTE | 2021-11-27 12:06 | DI.CT.S_ITS ---
PROCEDURE: CT CHEST WO CON INDICATIONS: lung cancer, breathing difficulty TECHNIQUE: Noncontrast 5 mm thick sections acquired from the pulmonary apices to the posterior costophrenic angles. 1 mm lung window, 5 mm thick coronal and sagittal and 7 mm axial MIP reformats were then acquired. For radiation dose reduction, the following was used: automated exposure control, adjustment of mA and/or kV according to patient size. COMPARISON: [facility], CR, XR CHEST 2V, 11/11/2021, 13:11. [facility], CT, CT CHEST WO CON, 04/22/2021, 11:15. [facility], CT, CT CHEST WO CON, 12/17/2020, 11:55. FINDINGS: Image quality: Excellent. Lungs and pleura: [id number] centrilobular and paraseptal emphysema. A small to moderate right pleural effusion is new when compared to the prior CT and increased when compared to the recent prior radiograph, with atelectasis of the majority of the right lower lobe. Multiple bilateral pulmonary nodules: Irregular right upper lobe subsolid nodule measures 2.3 x 1.8 cm (60/3), compared to approximately 2.0 x 1.5 cm previously. Peripheral wedge-shaped right upper lobe opacity the appear stable and may represent scarring (95/3). A solid 2.6 x 1.9 cm nodule is seen in the posterior right middle lobe (169/3), which has not significantly changed in size. Part solid nodule in the anterior left upper lobe with a solid component measuring 0.4 cm (51/3), appears increased and solid component when compared to the prior exam. A 0.6 cm solid nodule in the central left upper lobe (54/3) appears minimally increased in size. Subpleural ground-glass nodule in the superior segment of the left lower lobe (111/3) measures 1.4 x 0.9 cm, previously approximately 0.9 x 0.6 cm. A 1.1 x 0.7 cm solid nodule in the left lung base (246/3) is new. Mediastinum: Heart size is normal. Trace pericardial effusion or pericardial thickening, which appears stable. Coronary artery calcifications are present. No mediastinal adenopathy by size criteria. Thoracic aorta and central pulmonary arteries are normal in size. Mild aortic atherosclerotic calcifications. Esophagus is normal in caliber. No hiatal hernia. Bones and chest wall: Right chest port is seen with catheter tip in the upper superior vena cava just distal to the confluence of the innominate veins. Bilateral gynecomastia. There is diffuse soft tissue anasarca. Lower right axillary lymph nodes measure 1.0 cm in short axis diameter (21/2 and 24/2). Bilateral axillary lymph nodes appear somewhat prominent Mild sclerosis again seen surrounding the T7-8 level with loss of disc space height. Mild chronic superior endplate depression at T3 and T4 appears unchanged. No vertebral body compression fractures. No axillary or supraclavicular adenopathy by size criteria. Thyroid is not well visualized. Abdomen: Visualized upper abdominal solid organs and bowel loops appear normal in the absence of contrast. IMPRESSION: 1. New small to moderate right pleural effusion with atelectasis of the right lower lobe. 2. Bilateral solid and subsolid pulmonary nodules have increased in size when compared to the prior CT from 04/22/2021. 3. [id number] centrilobular emphysema. 4. Stable chronic pericardial thickening. 5. Nonspecific borderline axillary lymph nodes bilaterally, slightly worse on the right. Dictated by: Yuriy Garcia M.D. on 11/27/2021 at 13:37 Approved by: Yuriy Garcia M.D. on 11/27/2021 at 14:03
== END ==
PROVIDERS: Family Provider Family Medicine; PCP Family Medicine; Referring Provider Internal Medicine Hematology & Oncology; Visit Provider Internal Medicine Hematology & Oncology
DX: C34.11 Malignant neoplasm of upper lobe, right bronchus or lung (principal); J90 Pleural effusion, not elsewhere classified; J98.11 Atelectasis; R91.8 Other nonspecific abnormal finding of lung field; I25.10 Atherosclerotic heart disease of native coronary artery without angina pectoris; R59.0 Localized enlarged lymph nodes; J43.2 Centrilobular emphysema; Z95.828 Presence of other vascular implants and grafts
CPT/HCPCS: 71250

== ENCOUNTER 2021-11-28 16:18 | Emergency (ER) | payer MEDICARE, MEDICAID, SELFPAY ==
[2021-11-28] VITALS (7 sets, daily range): BP systolic 151–159; BP diastolic 78–85; PULSE 86–89; RESP 20–24; TEMP 36.7–37.3; O2SAT 98–99; BMI 29.2
--- NOTE | 2021-11-28 16:55 | DI.RAD.S_ITS ---
PROCEDURE: XR CHEST 1V INDICATIONS: Flu like symptoms TECHNIQUE: One view of the chest was acquired. with atelectasis COMPARISON: [facility], CR, XR CHEST 2V, 11/11/2021, 13:11. [facility], CT, CT CHEST WO CON, 11/27/2021, 12:09. FINDINGS: Surgical changes and devices: Right Port-A-Cath is seen with somewhat high course in the neck and tip projecting over the region of the innominate vein confluence. Cervical spinal hardware is partially imaged. Lungs and pleura: There is a medium size right pleural effusion with atelectasis or consolidation of the right lung base. The left lung is clear. Subsolid nodule seen on prior CT are not well visualized radiographically. Mediastinum: Mediastinal contours appear normal. Heart size is normal. Bones and chest wall: No suspicious bony lesions. Overlying soft tissues appear unremarkable. IMPRESSION: Moderate right pleural effusion with atelectasis or consolidation of the right lung base. Dictated by: Yuriy Garcia M.D. on 11/28/2021 at 17:54 Approved by: Yuriy Garcia M.D. on 11/28/2021 at 17:57
[2021-11-28 17:08] LABS: Add Manual Diff / Slide Review NO; Basophils Absolute Auto 0 /uL (0-100); Basophils Percent Auto 0.2 % (0-2); Eosinophils Absolute Auto 0 /uL (0-450); Eosinophils Percent Auto 0.5 % (2-4); Hematocrit 29.6 % (41-53); Lymphocytes Absolute Auto 300 /uL (1100-4500); Lymphocytes Percent Auto 3.2 % (25-40); Mean Corpuscular HGB Conc 33.7 % (30-36); Mean Corpuscular Hemoglobin 33.6 PG (26-34); Mean Corpuscular Volume 99.6 fL (80-100); Monocytes Absolute Auto 200 /uL (0-900); Monocytes Percent Auto 2.1 % (3-14); Neutrophils Absolute Auto 7400 /uL (1500-7000); Platelet Count 109 X10^3/uL (150-400); Red Blood Cell Count 2.97 X10^6/uL (4.5-5.9); Red Cell Distribution Width 14.6 % (11.6-14.8); White Blood Cell Count 7.9 X10^3/uL (4.5-11.0)
[2021-11-28 17:13] LABS: INR 1.1 (0.9-1.3); Prothrombin Time 12.2 SECONDS (10.1-12.7)
[2021-11-28 17:17] LABS: Lactate (Lactic Acid) 0.9 mmol/L (0.7-2.1)
[2021-11-28 17:18] LABS: Alanine Aminotransferase 21 IU/L (<50); Albumin Globulin Ratio 1.5 (1.0-2.8); Alkaline Phosphatase 167 U/L (38-126); Aspartate Aminotransferase 37 IU/L (17-59); BUN Creatinine Ratio 6.7 (6-22); Bilirubin Total 0.9 mg/dL (0.2-1.3); Blood Urea Nitrogen 16 mg/dL (9-20); Calcium 8.6 mg/dL (8.4-10.2); Carbon Dioxide 33 mmol/L (22-32); Chloride 93 mmol/L (98-107); Estimated Glomerular Filt Rate 27.3 mL/min (>60); Globulin 2.7 g/dL (1.7-4.1); Glucose 153 mg/dL (80-110); HEMOLYSIS < 15 (0-50); Potassium 3.9 mmol/L (3.4-5.1); Sodium 134 mmol/L (137-145); Total Protein 6.7 g/dL (6.3-8.2)
[2021-11-28 17:27] LABS: NT-proBNP (BNP-Adult 18+) 48 pg/mL (<125)
[2021-11-28 17:49] LABS: COVID19 -Nasal RAPID Negative (Negative)
[2021-11-28] MEDS: ALBUTEROL/IPRATROPIUM 3 ML AMPUL INH (17:53)
--- NOTE | 2021-11-28 17:56 | ED_ITS ---
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 He apparently has had increasing shortness of breath with exertion for about the last 2 weeks. He had an outpatient is non contrasted CT chest which does show a pleural effusion yesterday. At dialysis today his mobile service rv technician recommended that he go to the ER for thoracentesis. Today he did not have increasing shortness of breath or chest pain or fever. The states that yesterday he had quite a severe attack she was concerned for him yesterday but did not have him evaluated. Related Data Home Medications Medication Instructions Recorded Confirmed CALCIUM ACETATE (PHOSLO~) 667 mg PO QDAY #0 05/24/13 11/18/21 OMEPRAZOLE 40 mg PO BID #0 05/24/13 11/18/21 VITAMIN D (Vitamin D3) 4,000 unit PO DAILY #0 05/24/13 11/18/21 [DIALYVITE] 100 mg PO QDAY #0 05/24/13 11/18/21 olanzapine 5 mg tablet (Zyprexa) 5 mg PO QDAY #0 05/24/13 11/18/21 paroxetine HCl 20 mg tablet (Paxil) 20 mg PO QDAY #0 05/24/13 11/18/21 sevelamer carbonate 800 mg tablet 800 mg PO DAILY #0 05/24/13 11/18/21 (Renvela) albuterol sulfate 90 mcg/actuation 2 puff INHALATION Q4-6H 12/20/18 11/18/21 aerosol inhaler (ProAir HFA) ketoconazole 2 % topical cream 1 applic TOPICAL BID 12/20/18 11/18/21 loratadine 10 mg capsule 10 mg PO DAILY 12/20/18 11/18/21 umeclidinium 62.5 mcg/actuation 1 inh INHALATION DAILY 12/20/18 11/18/21 blister powder for inhalation (Incruse Ellipta) acetaminophen 325 mg tablet 650 mg PO Q4H PRN 01/23/21 11/18/21 aspirin 81 mg tablet 81 mg PO DAILY 01/23/21 11/18/21 atorvastatin 80 mg tablet 40 mg PO DAILY 01/23/21 11/18/21 brinzolamide 1 %-brimonidine 0.2 % 1 drp OPHTHALMIC (EYE) BID 01/23/21 11/18/21 eye drops,suspension (Simbrinza) docusate sodium 100 mg capsule 100 mg PO BID 01/23/21 11/18/21 metoprolol tartrate 25 mg tablet 12.5 mg PO PRN PRN 01/23/21 11/18/21 pioglitazone 45 mg tablet 45 mg PO DAILY 01/23/21 11/18/21 travoprost 0.004 % eye drops 1 drp OPHTHALMIC (EYE) BEDTIME 01/23/21 11/18/21 cinnamon bark-chromium 1 cap PO DAILY 05/08/21 11/18/21 picolinate-ALA 500 mg-100 mcg-150 mg capsule gabapentin 100 mg tablet 100 mg PO BEDTIME 05/08/21 11/18/21 vitamin B complex-vitamin C-folic 1 tab DAILY 05/08/21 11/18/21 acid 0.8 mg tablet (Veena-Michael) levothyroxine 175 mcg tablet 175 mcg PO DAILY 07/10/21 11/18/21 Previous Rx's Medication Instructions Recorded albuterol sulfate 1.25 mg/3 mL 1.25 mg (3 mL) INHALATION Q4-6H 08/21/19 solution for nebulization PRN #75 ml doxycycline hyclate 100 mg capsule 100 mg PO BID #20 cap 11/28/21 Allergies Allergy/AdvReac Type Severity Reaction Status Date / Time Penicillins Allergy Severe passed out Verified 07/22/21 07:05 codeine AdvReac Intermediate Vomiting Verified 07/22/21 07:05 morphine AdvReac Vomiting Verified 07/22/21 07:05 Review of Systems Review of Systems Narrative: GENERAL: Denies chills, fatigue, malaise, fever, sweats, travel HEENT: Denies sinus pain, ear pain, sore throat, difficulty swallowing, neck pain RESPIRATORY: See HPI CARDIOVASCULAR: Denies chest pain, palpitations, orthopnea, edema GASTROINTESTINAL: Denies nausea, vomiting, abdominal pain, diarrhea, constipation, melena. : Denies dysuria, frequency, incontinence, hematuria, urinary retention, flank pain. MUSCULOSKELETAL: Denies weakness, joint pain, or bony pain SKIN: No rash, no erythema, no pruritus NEUROLOGIC: Denies weakness, dizziness, headache, numbness, change in speech, confusion PSYCHIATRIC: No concerning psychosocial issues. 12 point review of systems is negative except for those stated above and HPI Patient History Medical History Anemia Anxiety Arthritis AV fistula Back pain Bipolar 1 disorder Chest pain COPD (chronic obstructive pulmonary disease) Depression Diabetes Easy bruisability GERD (gastroesophageal reflux disease) History of renal dialysis HLD (hyperlipidemia) HTN (hypertension) Hypotension Lung cancer Parietal lobe infarction Poor balance Renal failure Stroke Weakness Surgical History AV (arteriovenous fistula) H/O umbilical hernia repair History of back surgery History of carpal tunnel surgery History of cholecystectomy History of removal of Port-a-Cath History of vasectomy Hx of brain surgery (~10/2018) Hx of neck surgery Hx of tonsillectomy Family History Father Hypertension Heart disease Diabetes mellitus Mother Cancer Social History marital status: household members: spouse and children occupational status: unemployed Smoking Status: Current every day smoker alcohol intake: never Smoking Status: Current every day smoker tobacco type: cigarettes Substance Use Type: does not use Exam Initial Vital Signs Initial Vital Signs: Vital Signs Temperature 98.0 F 11/28/21 16:23 Pulse Rate 89 11/28/21 16:23 Respiratory Rate 24 11/28/21 16:23 Blood Pressure 155/78 H 11/28/21 16:23 Pulse Oximetry 98 11/28/21 16:23 GENERAL: Alert 66-year-old male appears older than stated age no acute distress in no acute distress. HEENT: Head atraumatic,EOMI, pupils reactive, face symmetric, moist mucous membranes CARDIOVASCULAR: Regular rate and rhythm without murmurs, rubs or gallops. RESPIRATORY: No wheezing rales or rhonchi speaks in full sentences without difficulty slight decreased breath sounds on the right ABDOMEN: Soft, nontender. Normoactive bowel sounds all 4 quadrants. No guarding or rebound. EXTREMITIES: Normal range of motion, no clubbing or edema. Neurovascularly intact NEUROLOGICAL: Alert and oriented x4.Normal gait and speech. SKIN: Warm, dry, no laceration, no petechiae, no rashes or lesions. Course Orders Ordered: Discontinued Medications Albuterol/Ipratropium (Albuterol/Ipratropium 3 Ml Ampul) 3 ml INH NOW ONE Stop: 11/28/21 17:24 Last Admin: 11/28/21 17:53 Dose: 3 ml Documented by: [email or web address] Vital Signs Vital signs: Vital Signs - 8 hr 11/28/21 19:27 Temperature 99.1 F Pulse Rate 89 Respiratory Rate 20 Blood Pressure 159/82 H Pulse Oximetry 98 MDM - SOB/Dyspnea Lab Data Result diagrams: 11/28/21 16:55 11/28/21 16:55 Labs: Lab Results 11/28/21 11/28/21 11/28/21 Range/Units 16:55 16:55 16:55 WBC 7.9 (4.5-11.0) X10^3/uL RBC 2.97 L (4.5-5.9) X10^6/uL Hgb 10.0 L (13.5-17.5) g/dL Hct 29.6 L (41-53) % MCV 99.6 (80-100) fL MCH 33.6 (26-34) PG MCHC 33.7 (30-36) % RDW 14.6 (11.6-14.8) % Plt Count 109 L (150-400) X10^3/uL Neut % (Auto) 94.0 H (50-75) % Lymph % (Auto) 3.2 L (25-40) % [place] % (Auto) 2.1 L (3-14) % Eos % (Auto) 0.5 L (2-4) % Baso % (Auto) 0.2 (0-2) % Neut # (Auto) 7400 H (3213-2586) /uL Lymph # (Auto) 300 L (7392-2855) /uL [place] # (Auto) 200 (0-900) /uL Eos # (Auto) 0 (0-450) /uL Baso # (Auto) 0 (0-100) /uL PT (10.1-12.7) SECONDS INR (0.9-1.3) Sodium 134 L (137-145) mmol/L Potassium 3.9 (3.4-5.1) mmol/L Chloride 93 L (98-107) mmol/L Carbon Dioxide 33 H (22-32) mmol/L BUN 16 (9-20) mg/dL Creatinine 2.38 H (0.66-1.25) mg/dL Estimated GFR 27.3 L (>60) mL/min BUN/Creatinine Ratio 6.7 (6-22) Glucose 153 H (80-110) mg/dL Lactate 0.9 (0.7-2.1) mmol/L Calcium 8.6 (8.4-10.2) mg/dL Total Bilirubin 0.9 (0.2-1.3) mg/dL AST 37 (17-59) IU/L ALT 21 (<50) IU/L Alkaline Phosphatase 167 H (38-126) U/L NT-Pro-B Natriuret Pep (<125) pg/mL Total Protein 6.7 (6.3-8.2) g/dL Albumin 4.0 (3.5-5.0) g/dL Globulin 2.7 (1.7-4.1) g/dL Albumin/Globulin Ratio 1.5 (1.0-2.8) SARS-CoV-2 (PCR) (Negative) 11/28/21 11/28/21 11/28/21 Range/Units 16:55 16:55 16:55 WBC (4.5-11.0) X10^3/uL RBC (4.5-5.9) X10^6/uL Hgb (13.5-17.5) g/dL Hct (41-53) % MCV (80-100) fL MCH (26-34) PG MCHC (30-36) % RDW (11.6-14.8) % Plt Count (150-400) X10^3/uL Neut % (Auto) (50-75) % Lymph % (Auto) (25-40) % [place] % (Auto) (3-14) % Eos % (Auto) (2-4) % Baso % (Auto) (0-2) % Neut # (Auto) (7676-9976) /uL Lymph # (Auto) (9175-3169) /uL [place] # (Auto) (0-900) /uL Eos # (Auto) (0-450) /uL Baso # (Auto) (0-100) /uL PT 12.2 (10.1-12.7) SECONDS INR 1.1 (0.9-1.3) Sodium (137-145) mmol/L Potassium (3.4-5.1) mmol/L Chloride (98-107) mmol/L Carbon Dioxide (22-32) mmol/L BUN (9-20) mg/dL Creatinine (0.66-1.25) mg/dL Estimated GFR (>60) mL/min BUN/Creatinine Ratio (6-22) Glucose (80-110) mg/dL Lactate (0.7-2.1) mmol/L Calcium (8.4-10.2) mg/dL Total Bilirubin (0.2-1.3) mg/dL AST (17-59) IU/L ALT (<50) IU/L Alkaline Phosphatase (38-126) U/L NT-Pro-B Natriuret Pep 48 (<125) pg/mL Total Protein (6.3-8.2) g/dL Albumin (3.5-5.0) g/dL Globulin (1.7-4.1) g/dL Albumin/Globulin Ratio (1.0-2.8) SARS-CoV-2 (PCR) Negative (Negative) Imaging Data Chest x-ray: Radiologist's Impression: PROCEDURE:? XR CHEST 1V ? INDICATIONS:? Flu like symptoms ? TECHNIQUE:? One view of the chest was acquired.? ? ?with atelectasis COMPARISON:? [facility], CR, XR CHEST 2V, 11/11/2021, 13:11.? [facility], CT, CT CHEST WO CON, 11/27/2021, 12:09. ? FINDINGS:? ? Surgical changes and devices:? Right Port-A-Cath is seen with somewhat high co urse in the neck and tip projecting over the region of the innominate vein confluence.? Cervical spinal hardware is partially imaged.? ? Lungs and pleura:? There is a medium size right pleural effusion with atelectasis or consolidation of the right lung base.? The left lung is clear.? Subsolid nodule seen on prior CT are not well visualized radiographically. ? Mediastinum:? Mediastinal contours appear normal.? Heart size is normal.? ? Bones and chest wall:? No suspicious bony lesions.? Overlying soft tissues appear unremarkable.? ? IMPRESSION:? Moderate right pleural effusion with atelectasis or consolidation of the right lung base.? ? ? Dictated by: Yuriy Garcia M.D. on 11/28/2021 at 17:54 ? ? Approved by: Yuriy Garcia M.D. on 11/28/2021 at 17:57 ? CT scan - chest: Radiologist's Impression: PROCEDURE:? CT CHEST WO CON ? INDICATIONS:? lung cancer, breathing difficulty ? TECHNIQUE: Noncontrast 5 mm thick sections acquired from the pulmonary apices to the posterior costophrenic angles.? 1 mm lung window, 5 mm thick coronal and sagittal and 7 mm axial MIP reformats were then acquired.? For radiation dose reduction, the following was used:? automated exposure control, adjustment of mA and/or kV according to patient size.? ? COMPARISON:? [facility], CR, XR CHEST 2V, 11/11/2021, 13:11.? [facility], CT, CT CHEST WO CON, 04/22/2021, 11:15.? [facility], CT, CT CHEST WO CON, 12/17/2020, 11:55. ? FINDINGS:? Image quality:? Excellent.? ? Lungs and pleura:? [id number] centrilobular and paraseptal emphysema.? A small to moderate right pleural effusion is new when compared to the prior CT and in creased when compared to the recent prior radiograph, with atelectasis of the majority of the right lower lobe.? ? Multiple bilateral pulmonary nodules: Irregular right upper lobe subsolid nodule measures 2.3 x 1.8 cm (60/3), compared to approximately 2.0 x 1.5 cm previously. Peripheral wedge-shaped right upper lobe opacity the appear stable and may represent scarring (95/3). A solid 2.6 x 1.9 cm nodule is seen in the posterior right middle lobe (169/3), which has not significantly changed in size. ? Part solid nodule in the anterior left upper lobe with a solid component measuring 0.4 cm (51/3), appears increased and solid component when compared to the prior exam. A 0.6 cm solid nodule in the central left upper lobe (54/3) appears minimally increased in size. Subpleural ground-glass nodule in the superior segment of the left lower lobe (111/3) measures 1.4 x 0.9 cm, previously approximately 0.9 x 0.6 cm. A 1.1 x 0.7 cm solid nodule in the left lung base (246/3) is new. ? ? Mediastinum:? Heart size is normal.? Trace pericardial effusion or pericardial thickening, which appears stable.? Coronary artery calcifications are present.? No mediastinal adenopathy by size criteria.? Thoracic aorta and central pulmonary arteries are normal in size.? Mild aortic atherosclerotic calcifications.? Esophagus is normal in caliber.? No hiatal hernia.? ? Bones and chest wall:? Right chest port is seen with catheter tip in the upper superior vena cava just distal to the confluence of the innominate veins.? Bilateral gynecomastia. ?There is diffuse soft tissue anasarca.? Lower right axillary lymph nodes measure 1.0 cm in short axis diameter (21/2 and 24/2).? Bilateral axillary lymph nodes appear somewhat prominent Mild sclerosis again seen surrounding the T7-8 level with loss of disc space height.? Mild chronic superior endplate depression at T3 and T4 appears unchanged.? No vertebral body compression fractures.? No axillary or supraclavicular adenopathy by size criteria.? Thyroid is not well visualized.? ? Abdomen:? Visualized upper abdominal solid organs and bowel loops appear normal in the absence of contrast.? ? IMPRESSION:? 1. New small to moderate right pleural effusion with atelectasis of the right lower lobe. 2. Bilateral solid and subsolid pulmonary nodules have increased in size when compared to the prior CT from 04/22/2021. 3. [id number] centrilobular emphysema. 4. Stable chronic pericardial thickening. 5. Nonspecific borderline axillary lymph nodes bilaterally, slightly worse on the right. ? ? Dictated by: Yuriy Garcia M.D. on 11/27/2021 at 13:37 ? ? ECG Data Interpretation: Sinus rhythm rate 88 IN interval 172 QRS [address] changes MDM Narrative Medical decision making narrative: Patient does have moderate right-sided pleural effusion. However while at rest he is not tachypneic he is not requiring oxygen he ambulated in the ED without hypoxia or severe tachypnea. His symptoms improved with DuoNeb. He was given prescription for prednisone as an outpatient. At this time patient does not require any emergent thoracentesis or need to be admitted. It does need to be drained it would improve his symptoms however unable to have Interventional Radiology over the weekend for thoracentesis. Both [place] and [facility] or currently on divert. Patient would need to go to a another hospital because of his dialysis. Patient really does not meet any admission criteria. I did recommend trying to arrange as an outpatient but also suggested he may return to the emergency department next week for possible drainage however that is not guarantee. Also if his symptoms get worse he needs to return to the ER all the soonest possible and I encouraged them to call the ambulance and 911 Discharge Plan Departure Patient Disposition: Home Clinical Impression: Pleural effusion, COPD with acute exacerbation Instructions: Pleural Effusion, Chronic Obstructive Pulmonary Disease Activity Restrictions/Additional Instructions: *You have been diagnosed with pleural effusion and COPD exacerbation *What to do: At this time your fluid does need to be drained however not e mergently. Please continue to monitor oxygen at home. If the oxygen decreases to 89-91% please return to the emergency department. He may return to the emergency department next week to see if we can get it drained for you. *Continue to take medications as directed Continue prednisone as prescribed Doxycycline 100 mg twice a day for 7 days-- SENT TO [facility] *Follow up with your primary care provider in 2-3 days or call [phone] *Return to ER if you should have increasing shortness of breath, chest pain, oxygen less than 91% or any new, worsening or concerning symptoms Prescriptions: New doxycycline hyclate 100 mg capsule 100 mg PO BID Qty: 20 0RF No Action olanzapine [Zyprexa] 5 MG tablet 5 mg PO QDAY Qty: 0 0RF paroxetine HCl [Paxil] 20 MG tablet 20 mg PO QDAY Qty: 0 0RF sevelamer carbonate [Renvela] 800 MG tablet 800 mg PO DAILY Qty: 0 0RF CALCIUM ACETATE (PHOSLO~) 667 mg PO QDAY Qty: 0 0RF OMEPRAZOLE 40 mg PO BID Qty: 0 0RF VITAMIN D (Vitamin D3) 4,000 unit PO DAILY Qty: 0 0RF [DIALYVITE] 100 mg PO QDAY Qty: 0 0RF ketoconazole 2 % Cream 1 applic TOPICAL BID 0RF Incruse Ellipta 62.5 mcg/actuation Blister With Device 1 inh INHALATION DAILY 0RF albuterol sulfate [ProAir HFA] 90 mcg/actuation Hfa Aerosol Inhaler 2 puff INHALATION Q4-6H 0RF loratadine 10 mg Capsule 10 mg PO DAILY 0RF aspirin 81 mg Tablet 81 mg PO DAILY 0RF acetaminophen 325 mg Tablet 650 mg PO Q4H PRN (Reason: Pain, Moderate) 0RF atorvastatin 80 mg Tablet 40 mg PO DAILY 0RF metoprolol tartrate 25 mg Tablet 12.5 mg PO PRN PRN (Reason: Hypertension) 0RF Simbrinza 1-0.2 % Drops,Suspension 1 drp OPHTHALMIC (EYE) BID 0RF Rx Instructions: left eye pioglitazone 45 mg Tablet 45 mg PO DAILY 0RF docusate sodium 100 mg Capsule 100 mg PO BID 0RF travoprost 0.004 % Drops 1 drp OPHTHALMIC (EYE) BEDTIME 0RF Rx Instructions: both eyes gabapentin 100 mg Tablet 100 mg PO BEDTIME 0RF cinnamon [id number] 500-100-150 mg-mcg-mg Capsule 1 cap PO DAILY 0RF Veena-Michael 0.8 mg Tablet 1 tab DAILY 0RF levothyroxine 175 mcg Tablet 175 mcg PO DAILY 0RF albuterol sulfate 1.25 mg/3 mL solution for nebulization 1.25 mg INHALATION Q4-6H PRN (Reason: bronchospasm) Qty: 75 0RF Referrals: Nisha Young MD [Primary Care Provider] -
== END 2021-11-28 19:30 | disposition home or self-care (01) ==
PROVIDERS: Emergency Medicine; Emergency Provider Emergency Medicine; Family Provider Family Medicine; PCP Family Medicine
DX: J44.1 Chronic obstructive pulmonary disease with (acute) exacerbation (principal); J90 Pleural effusion, not elsewhere classified; I10 Essential (primary) hypertension; F17.210 Nicotine dependence, cigarettes, uncomplicated; Z20.822 Contact with and (suspected) exposure to COVID-19
CPT/HCPCS: 36415; 71045; 80053; 83605; 83880; 85025; 85610; 87635; 93005; 93010; 94150; 94640; 99284; C9803; J1642

== ENCOUNTER → 2021-12-02 09:57 | Outpatient (CLI) | payer MEDICARE, MEDICAID, SELFPAY ==
--- NOTE | 2021-12-02 | DI.US.S_ITS ---
PROCEDURE: US THORACENTESIS INDICATIONS: Pleural effusion, not elsewhere classified TECHNIQUE: The indications, alternatives, benefits, risks, and complications of the procedure were explained to the patient. Written informed consent was obtained and placed in the chart. The chest was examined sonographically, and an appropriate site was chosen for thoracentesis. The skin was prepared and draped in the usual sterile fashion, and 1% lidocaine was infiltrated from the skin down through the pleural surface. A 19-gauge catheter-covered needle was then introduced into the pleural space, the catheter was advanced and the needle was withdrawn, and thereafter pleural fluid was aspirated. The catheter was then removed and a dressing was applied. COMPARISON: None. FINDINGS: Access site: Right hemithorax. Needle: One-Step centesis catheter with introducer needle. Fluid volume and description: 1350 mL Fluid sent for diagnostic testing: Yes Medications: 1% lidocaine for local anaesthesia. Complications: None; post-procedural chest radiograph is pending to assess for pneumothorax. IMPRESSION: Successful ultrasound-guided thoracentesis. Dictated by: Jayant Solomon M.D. on 12/02/2021 at 12:39 Approved by: Jayant Solomon M.D. on 12/02/2021 at 12:40
--- NOTE | 2021-12-02 | PATH_ITS ---
Note [facility] Accession Number: [id number] TESTS RESULT FLAG UNITS REF RANGE LAB Clinician Provided Cytology Information No. of containers..01 Other (Miscellaneous) Source: PLEURAL FLUID DIAGNOSIS: 01 PLEURAL FLUID NEGATIVE FOR MALIGNANT CELLS. MESOTHELIAL CELLS ARE PRESENT. THIS INTERPRETATION INCLUDES EVALUATION OF A CELL BLOCK. Pathologist ICD10: J90 Signed out by: Nikki Batista MD, Pathologist NPI- [id number] Performed by: Jim Starks, Jammer Hooker ([facility]) Gross description: 70 CC, YELLOW, CLEAR /LCS 12/04/2021 0232 Local FLAG LEGEND: L-Low Normal,H-High Normal,LL-Alert Low,HH-Alert High <-Panic Low,>-Panic High,A-Abnormal,AA-Critical Abnormal Performed at: 01 =Z [facility] [address], [place] [address] Anuj Humphreys MD, Performed at: 01 [facility] [address], [place], [place] [id number] MD Anuj Humphreys MD Phone: [phone]
--- NOTE | 2021-12-02 | DI.RAD.S_ITS ---
PROCEDURE: XR CHEST 1V INDICATIONS: post thora TECHNIQUE: One view of the chest was acquired. COMPARISON: [facility], CR, XR CHEST 1V, 11/28/2021, 17:18. FINDINGS: Surgical changes and devices: Redemonstrated right CT injectable port a catheter. Anterior cervical spine hardware is noted. Lungs and pleura: Interval decreased right pleural fluid with small residual pleural effusion. No pneumothorax. The left lung is well aerated. Mediastinum: The cardiac silhouette is upper limits of normal. Bones and chest wall: No suspicious bony lesions. Overlying soft tissues appear unremarkable. IMPRESSION: No pneumothorax, post thoracentesis. Dictated by: Jayant Solomon M.D. on 12/02/2021 at 12:37 Approved by: Jayant Solomon M.D. on 12/02/2021 at 12:38
[2021-12-02 10:52] LABS: Hematocrit 32.6 % (41-53); Hemoglobin 10.7 g/dL (13.5-17.5)
[2021-12-02 12:07] LABS: LDH Body Fluid 222 U/L; Total Protein Body Fluid < 2.0 g/dL
[2021-12-02 12:29] LABS: pH Body Fluid 8 pH
== END ==
PROVIDERS: Family Provider Family Medicine; PCP Family Medicine; Referring Provider Family Medicine; Visit Provider Family Medicine
DX: J90 Pleural effusion, not elsewhere classified (principal)
CPT/HCPCS: 32555; 36415; 71045; 83615; 83986; 84157; 85014; 85018; 87070; 87075; 87205

== ENCOUNTER → 2022-01-08 09:57 | Outpatient (CLI) | payer MEDICARE, MEDICAID, SELFPAY ==
--- NOTE | 2022-01-08 10:27 | DI.CT.S_ITS ---
PROCEDURE: CT CHEST ABD PEL W CON INDICATIONS: metastatic lung cancer TECHNIQUE: After the administration of oral and intravenous contrast, axial sections acquired from the supraclavicular neck to the pubic symphysis. Coronal and sagittal reformats were performed. For radiation dose reduction, the following was used: automated exposure control, adjustment of mA and/or kV according to patient size. COMPARISON: [facility], CT, CT ABDOMEN PELVIS W CON, 11/18/2020, 19:24. [facility], CT, CT CHEST WO CON, 11/27/2021, 12:09. [facility], CT, CT CHEST ABD PEL W CON, 09/14/2019, 10:38. FINDINGS: Image quality: Excellent. CHEST: Lower Neck: No enlarged lymph nodes. Thyroid: Within normal limits. Axillae: There are multiple shotty bilateral axillary lymph nodes. Some of the right axillary lymph nodes lack the expected fatty hilum , suggesting lymphadenopathy. Chest Wall: There is extensive bilateral gynecomastia. Greater on the right than on the left. Lungs and Airways: There is a large right pleural effusion, slightly increased in size when compared with the prior CT dated November 27, 2021. There is near complete consolidation of the right lower and the posterior half of the right middle lobe. The ground-glass radiopacity within the right upper lobe is similar in size to the prior study. There is moderate centrilobular and paraseptal emphysema throughout the aerated portions of the right lung. No new pulmonary radiopacities within the aerated portions of the right lung. 1.0 cm ground-glass radiopacity within the superior segment of the left lower lobe is unchanged. 6 mm in diameter pulmonary nodule within the left upper lobe is unchanged from the prior study. There is a new 1.1 x 0.6 cm pulmonary nodule within the left upper lobe (series 3/image 109). Pleura: No pneumothorax or pleural effusions. Heart: Heart size is normal. No pericardial effusion. Thoracic Vessels: The aorta and pulmonary arteries demonstrate normal size. Mediastinum and Guerda: There is a 1.2 cm in diameter subcarinal lymph node. No other mediastinal adenopathy. Esophagus: No wall thickening. No hiatal hernia. ABDOMEN: Liver: Unremarkable. Gallbladder: Surgically absent. Biliary ducts: Unremarkable. Pancreas: Unremarkable. Spleen: The spleen measures 11.6 cm in length. Normal enhancement. Adrenal Glands: Unremarkable. Kidneys and Ureters: Markedly atrophic. Stomach and Bowel: Stomach, small bowel loops, and colon are unremarkable. Peritoneum: No abnormal intraperitoneal fluid. There are scattered sigmoid diverticula. No evidence for diverticulitis. The appendix is thin walled and gas filled. No free air. Ventral Wall: There is diffuse anasarca throughout the soft tissues. Abdominal Nodes: There is a 1.2 cm in diameter left retroperitoneal lymph node which is new when compared with the prior CT of the abdomen dated November 18, 2020. Vessels: Aorta and inferior vena cava are normal in size. There are scattered atheromatous calcifications throughout the aorta and iliac arteries bilaterally. PELVIS: Pelvic Organs: Unremarkable. Bladder: Unremarkable. Pelvic Nodes: No enlarged lymph nodes. Miscellaneous: There is a right-sided fat and fluid and a left fat containing inguinal hernia. Bones: Unremarkable. IMPRESSION: 1. Increased size of the right pleural effusion and increased collapse/consolidation within the right middle and lower lobes when compared with the prior CT dated November 27, 2021. 2. New left pulmonary nodule suspicious for new metastatic disease. Infection could also be considered in the differential. The other previously visualized pulmonary nodules are unchanged from the prior study. 3. Enlarged subcarinal lymph node and abnormal appearing right axillary lymph nodes suspicious for gerald metastasis. 4. Enlarged left retroperitoneal lymph node suspicious for gerald metastasis. Dictated by: Laya Dodge M.D. on 01/08/2022 at 13:32 Approved by: Laya Dodge M.D. on 01/08/2022 at 13:44
== END ==
PROVIDERS: Family Provider Family Medicine; PCP Family Medicine; Referring Provider Internal Medicine Hematology & Oncology; Visit Provider Internal Medicine Hematology & Oncology
DX: C34.90 Malignant neoplasm of unspecified part of unspecified bronchus or lung (principal); R59.1 Generalized enlarged lymph nodes; J90 Pleural effusion, not elsewhere classified
CPT/HCPCS: 71260; 74177

== ENCOUNTER → 2022-05-07 11:05 | Outpatient (CLI) | payer MEDICARE, MEDICAID, SELFPAY ==
--- NOTE | 2022-05-07 | DI.RAD.S_ITS ---
PROCEDURE: XR LUMBAR SPINE 2-3V INDICATIONS: BACK PAIN TECHNIQUE: 3 views of the lumbar spine were acquired. COMPARISON: [facility], CT, CT CHEST ABD PEL W CON, 01/08/2022, 10:55. [facility], CR, XR LUMBAR SPINE 2-3V, 12/15/2018, 13:35. FINDINGS: Bones: 5 [id number] vertebrae are present. There is normal bony alignment. No vertebral body compression fractures. No suspicious bony lesions. Multilevel disc space loss. Multilevel facet arthropathy. Remote L5 laminectomy. Comparison is made to the patient's previous CT from 01/08/2022 demonstrating canal stenosis at L3-L4 and a probable right posterior lateral disc protrusion at L4-L5 likely impinging on the right L4 nerve root. Soft tissues: Overlying bowel gas pattern is normal. No suspicious soft tissue calcifications. IMPRESSION: 1. Remote L5 laminectomy, lumbar degenerative change. 2. Previous CT of the chest, abdomen, and pelvis, from December identifies canal stenosis at L3-L4 and a probable right posterior lateral disc protrusion at L4-L5, likely impinging on the right L3 nerve root in the foramen. Comment: Consider lumbar spine MRI with and without contrast for further evaluation in this patient with a history of lung cancer and back pain and the findings noted on the previous body CT study. Dictated by: Darinel Garcia M.D. on 05/07/2022 at 14:23 Approved by: Darinel Garcia M.D. on 05/07/2022 at 14:28
--- NOTE | 2022-05-07 11:29 | DI.RAD.S_ITS ---
PROCEDURE: XR SACRUM COCCYX MIN 2V INDICATIONS: BACK PAIN TECHNIQUE: 3 views of the sacrum and coccyx acquired. COMPARISON: None. FINDINGS: Bones: No fractures or dislocations. No suspicious bony lesions. There is indistinctness of the cortical margins of the SI joints bilaterally suggesting possible sacroiliitis. Soft tissues: Visualized bowel gas pattern is normal. No suspicious soft tissue densities. IMPRESSION: Question bilateral sacroiliitis. Consider pelvic MRI with and without contrast for confirmation. Dictated by: Darinel Garcia M.D. on 05/07/2022 at 14:11 Approved by: Darinel Garcia M.D. on 05/07/2022 at 14:22
== END ==
PROVIDERS: Family Provider Family Medicine; PCP Family Medicine; Referring Provider Family Medicine; Visit Provider Family Medicine
DX: M47.816 Spondylosis without myelopathy or radiculopathy, lumbar region (principal); M48.061 Spinal stenosis, lumbar region without neurogenic claudication; M54.9 Dorsalgia, unspecified
CPT/HCPCS: 72100; 72220

== ENCOUNTER → 2022-05-12 09:11 | Outpatient (CLI) | payer MEDICARE, MEDICAID, SELFPAY ==
--- NOTE | 2022-05-12 09:12 | DI.CT.S_ITS ---
PROCEDURE: CT CHEST ABD PEL W CON INDICATIONS: metastatic lung cancer TECHNIQUE: After the administration of oral and intravenous contrast, axial sections acquired from the supraclavicular neck to the pubic symphysis. Coronal and sagittal reformats were performed. For radiation dose reduction, the following was used: automated exposure control, adjustment of mA and/or kV according to patient size. COMPARISON:[facility], CT, CT CHEST WO CON, 11/27/2021, 12:09. [facility], CT, CT CHEST ABD PEL W CON, 01/08/2022, 10:55. FINDINGS: Image quality: Excellent. CHEST: Lower Neck: No enlarged lymph nodes. Thyroid: Within normal limits Axillae: Similar prominent lymph nodes, including a right supraclavicular node measures 1 cm on image 2/5. Chest Wall: Diffuse anasarca. Regular and left gynecomastia. Lungs and Airways: Right upper lobe nodule measures 19 x 15 mm, previously 19 by 16 mm (). Emphysema. Other nodules and ground-glass regions are stable when compared to 01/08 22 and 11/27/2021 Pleura: Similar moderate right pleural effusion with compressive atelectasis. Heart: Coronary calcifications. Thoracic Vessels: The aorta and pulmonary arteries demonstrate normal size. Mediastinum and Guerda: Similar prominent precarinal and subcarinal nodes. Esophagus: Small hiatal hernia. ABDOMEN: Liver: Unremarkable. Gallbladder: Absent Biliary ducts: Unremarkable. Pancreas: Stable atrophy and focally dilated duct at the tail, with a calcification. Spleen: Unremarkable. Adrenal Glands: Unremarkable. Kidneys and Ureters: Bilateral atrophic, with stable cysts and indeterminate hypoattenuating lesions. Stomach and Bowel: No bowel obstruction. Peritoneum: Small ascites, increased from prior Ventral Wall: Anasarca Abdominal Nodes: Similar borderline enlarged nodes, for example left periaortic. Vessels: Mild aortoiliac atherosclerotic calcifications. PELVIS: Pelvic Organs: Unremarkable. Bladder: Under distended Pelvic Nodes: Similar prominent nodes. Miscellaneous: Fat and fluid containing inguinal hernias. Bones: Lumbosacral spondylosis. Partially seen cervical anterior fusion hardware. IMPRESSION: Compared to 01/08/2022, and 11/27/2021, no important changes. Stable numerous pulmonary nodules, largest in the right upper lobe. Stable moderate right pleural effusion and thoracoabdominal lymph nodes. These and other incidental/indeterminate findings above can be followed on subsequent imaging. Dictated by: Arnulfo Santiago M.D. on 05/12/2022 at 11:31 Approved by: Arnulfo Santiago M.D. on 05/12/2022 at 11:48
== END ==
PROVIDERS: Family Provider Family Medicine; PCP Family Medicine; Referring Provider Internal Medicine Hematology & Oncology; Visit Provider Internal Medicine Hematology & Oncology
DX: C79.31 Secondary malignant neoplasm of brain; C34.11 Malignant neoplasm of upper lobe, right bronchus or lung; C77.8 Secondary and unspecified malignant neoplasm of lymph nodes of multiple regions; C78.02 Secondary malignant neoplasm of left lung; J90 Pleural effusion, not elsewhere classified
CPT/HCPCS: 71260; 74177; Q9967

== ENCOUNTER → 2022-08-13 10:15 | Outpatient (CLI) | payer MEDICARE, MEDICAID, SELFPAY ==
--- NOTE | 2022-08-13 10:16 | DI.CT.S_ITS ---
PROCEDURE: CT CHEST ABD PEL WO CON INDICATIONS: metastatic lung cancer TECHNIQUE: After the administration of oral contrast, 5 mm thick sections acquired from the lung apices to the symphysis pubis. 5 mm thick coronal and sagittal reformats acquired, with additional 7 mm coronal MIP reformats through the lungs. For radiation dose reduction, the following was used: automated exposure control, adjustment of mA and/or kV according to patient size. COMPARISON: [facility], CT, CT CHEST ABD PEL W CON, 05/12/2022, 10:41. FINDINGS: Image quality: Excellent. Lung bases: A right upper lobe spiculated nodule with surrounding ground-glass opacity measuring 1.5 x 1.9 cm is unchanged compared to 05/12/2022. Series 3, image 66. The lungs have underlying centrilobular emphysematous changes. Adjacent to the right middle lobe hilum there is an irregular masslike density measuring 2.6 x 1.6 cm which is new, however previously this portion of lung was collapsed with atelectasis and current findings are likely residual atelectasis, recommend continued follow-up. A spiculated pleural opacity with surrounding pulmonary cysts series 3 image 100 along the fissure is unchanged. There is a moderate-sized right pleural effusion which is smaller. Right basilar atelectasis is significantly improved. Heart size is normal. Coronary artery calcifications are seen. Solid organs: Liver: The liver has no mass or intrahepatic biliary ductal dilatation. Biliary: Status post cholecystectomy. Pancreas: The pancreas has no mass or ductal dilatation. There is no surrounding inflammation. Spleen: Normal size. There are no masses. Adrenals: No hypertrophy or nodules. Kidneys: Both kidneys are atrophic with stable simple cysts and indeterminate hypodense lesions. Peritoneum and bowel: The distal esophagus and stomach are normal. The small bowel has a normal caliber and appearance. The terminal ileum is normal. The large bowel has a normal caliber and appearance. The appendix is normal. No free fluid or air. Nodes and vessels: Prominent bilateral axillary lymph nodes are increased in number but are not pathologically enlarged and are unchanged compared to the prior CT. No retroperitoneal or mesenteric adenopathy by size criteria. Scattered retroperitoneal lymph nodes appear increased in number but are not pathologically enlarged and have a stable appearance compared to the prior CT. Miscellaneous: No abdominal wall mass. There is a right inguinal hernia containing fluid and fat. Right chest wall port is well positioned. Bilateral gynecomastia is noted. PELVIS: Genitourinary: The bladder has no wall thickening or mass. No bladder calcifications. Bones: No suspicious bony lesions. Multilevel degenerative changes of the thoracic and lumbar spine. There is disc disease in the lower lumbar spine. IMPRESSION: 1. Stable bilateral pulmonary nodules, the largest in the right upper lobe. 2. A masslike opacity in the right middle lobe adjacent to the hilum previously was completely atelectatic lung and the current findings are likely residual atelectasis. Recommend continued follow-up. 3. Lymph nodes in the bilateral axilla and retroperitoneum are increased in number but are not pathologically enlarged and are unchanged compared to the prior study. 4. Moderate right pleural effusion is smaller in size compared to the prior CT. Dictated by: Matt Tesfaye M.D. on 08/14/2022 at 8:23 Approved by: Matt Tesfaye M.D. on 08/14/2022 at 8:39
== END ==
PROVIDERS: Family Provider Family Medicine; PCP Family Medicine; Referring Provider Internal Medicine Hematology & Oncology; Visit Provider Internal Medicine Hematology & Oncology
DX: C34.90 Malignant neoplasm of unspecified part of unspecified bronchus or lung (principal); C79.31 Secondary malignant neoplasm of brain; J90 Pleural effusion, not elsewhere classified; R91.8 Other nonspecific abnormal finding of lung field; I25.10 Atherosclerotic heart disease of native coronary artery without angina pectoris; N28.1 Cyst of kidney, acquired; N62 Hypertrophy of breast
CPT/HCPCS: 71250; 74176